=== PATIENT | female | born 1985 | race African-American/Black ===

== ENCOUNTER 2020-01-25 04:40 | Inpatient (IN) | payer OTHER ==
[2020-01-25] MEDS ORDERED: PHENAZOPYRIDINE HCL 100 MG TABLET (FP) ONE (06:49)
[2020-01-25] MEDS ORDERED: ceFAZolin SODIUM 1 GM VIAL ONE ×2 (06:50→15:45)
[2020-01-25] MEDS ORDERED: VASOPRESSIN 20 UNITS/ML VIAL IV ONE ×2 (07:24→17:52)
[2020-01-25] MEDS ORDERED: MIDAZOLAM HCL 2 MG/2 ML SINGLE DOSE VIAL ONE ×4 (07:28→17:06)
[2020-01-25] MEDS ORDERED: PROMETHAZINE HCL 25 MG/1 ML VIAL IVPB PRN ×2 (07:30)
[2020-01-25] MEDS ORDERED: ONDANSETRON 4 MG/2 ML VIAL IVPUSH PRN ×4 (07:30→17:38)
[2020-01-25] MEDS ORDERED: DEXAMETHASONE SOD PHOSPHATE 4 MG/1 ML VIAL IVPUSH PRN (07:30)
[2020-01-25] MEDS ORDERED: HYDROmorphone *PCA* 10MG/50ML DISP.SYRIN PCA SCH (07:30)
[2020-01-25] MEDS ORDERED: LACTATED RINGERS SOLUTION 1,000 ML IV SCH (07:30)
[2020-01-25] MEDS ORDERED: PHENAZOPYRIDINE HCL 100 MG TABLET (FP) PO ONE (07:30)
[2020-01-25] MEDS ORDERED: CEFAZOLIN 2 GM in DEXTROSE 5%-WATER - 50 ML IVPB ONE (07:30)
[2020-01-25] MEDS ORDERED: ROPIVACAINE HCL 0.5% 30ML VIAL ONE (07:32)
--- NOTE | 2020-01-25 07:39 | HP ---
History & Physical Update - History History: No Change - Physical Physical: No Change - Assessment Assessment: No Change - Plan Plan: No Change (Ni change in HP)
[2020-01-25] MEDS ORDERED: ROCURONIUM BROMIDE 50 MG/5 ML SYRINGE ONE ×2 (07:57→14:57)
[2020-01-25] MEDS ORDERED: LIDOCAINE HCL/PF 2% SDV 5ML VIAL ONE ×2 (07:58→18:27)
[2020-01-25] MEDS ORDERED: PROPOFOL 20 ML ONE ×2 (07:58)
[2020-01-25] MEDS ORDERED: ceFAZolin SODIUM 1 GM VIAL IVPB ONE (08:05)
[2020-01-25] MEDS ORDERED: fentaNYL CITRATE 250 MCG/5 ML VIAL ONE (08:17)
[2020-01-25] MEDS ORDERED: NEOSTIGMINE METHYLSULFATE 0.5 MG/ML - 10 ML MDV ONE (09:32)
[2020-01-25] MEDS ORDERED: GLYCOPYRROLATE 0.2 MG/1 ML VIAL ONE (09:32)
[2020-01-25] MEDS ORDERED: ACETAMINOPHEN 325 MG TABLET (FP) PO PRN (10:03)
[2020-01-25] MEDS ORDERED: SIMETHICONE 80 MG TAB.CHEW (FP) PO PRN (10:03)
[2020-01-25] MEDS ORDERED: DOCUSATE SODIUM 100 MG CAPSULE (FP) PO PRN (10:03)
[2020-01-25] MEDS ORDERED: BISACODYL 5 MG TABLET.DR (FP) PO PRN (10:03)
[2020-01-25] MEDS ORDERED: IBUPROFEN 800 MG/8 ML IJ IVPB PRN (10:03)
[2020-01-25] MEDS ORDERED: FAMOTIDINE 20 MG TABLET PO PRN (10:08)
[2020-01-25] MEDS ORDERED: BENZOCAINE/MENTH/CETYLPYRD CL 1 EACH LOZENGE MM PRN (10:09)
--- NOTE | 2020-01-25 10:11 | OP ---
Operative Note - Note: Operative Date: 01/25/20 Pre-Operative Diagnosis: Leiomyomas, menorrhagia Operation: open abdominal myomectomy Findings: as dictated Post-Operative Diagnosis: Same as Pre-op Surgeon: Amanda Dominguez Narrow Gauge Brakeman: Margot Beltran Anesthesiologist/NEONATOLOGIST: Kodak Stoll Anesthesia: General, Regional Specimens Removed: 13 fibroids in total Estimated Blood Loss (mls): 700 (ml) Operative Report Dictated: Yes
--- NOTE | 2020-01-25 10:12 | SURG ---
Surgery Ticket Machine Operator Note Ticket Machine Operator: Margot Beltran PA-C (Suzy) Date of Service: 01/25/20 Diagnosis: Leiomyomas, menorrhagia Procedure: Operation: open abdominal myomectomy I was present for the entirety of the operative procedure. For further detail, please refer to operative report. Visit type - Case Type Case Type: Scheduled - Emergency Emergency Visit: No - New patient This patient is new to me today: Yes Date on this admission: 01/25/20 - Critical Care Critical Care patient: No
--- NOTE | 2020-01-25 10:35 | OP ---
DATE OF OPERATION: 01/25/2020 PREOPERATIVE DIAGNOSIS: Leiomyomatous uterus and menorrhagia, submucosal myoma, intramural myoma, subserosal myoma, pelvic pain. OPERATION: Abdominal Myomectomy very extensive, around 13 myomas removed including 3 from endometrial cavity and sent for findings. Tubes and ovaries noted to be normal. POSTOPERATIVE DIAGNOSIS: Leiomyomatous uterus and menorrhagia, submucosal myoma, intramural myoma, subserosal myoma, pelvic pain. SURGEON: Saturnino Dominguez MD GYROSCOPE TECHNICIAN: ANGELO Peres ANESTHESIA: General. ESTIMATED BLOOD LOSS: 700 mL PROCEDURE: Patient was taken to the operating room, placed in dorsal supine position, prepped and draped in the usual sterile fashion. Timeout was performed in accordance with hospital regulation. Pfannenstiel skin incision was made with a scalpel. Cautery was then used to go through the layers of the abdominal wall to the level of the fascia. Fascia was cut in the midline and cautery was then used to open the fascia in smiling fashion. Topher was then used to bluntly and sharply dissect the rectus muscle to fascia. Muscle was split in the midline. Peritoneal cavity was then entered and carried up and downward. A leiomyomatous uterus approximately 24 cm in size was palpated. The rectus muscle was then transversely cut. Uterus was then exteriorized and a multiple myomatous about 24 cm was exteriorized. Tourniquet was placed in the clear space of the broad. The tubes and ovaries were noted to be normal. Myomas were noted in the submucosal area, large about 8 cm submucosal myoma and 4 cm myomas as well as subserosal myomas also large about 9 to 10 cm in size. The tourniquet was placed. Pitressin was infiltrated and a large vertical incision was made anteriorly to remove most of the fibroids. Exteriorized and the muscle with approximately about 6 myomas were removed. Three of the myomas were located submucosally. Endometrial cavity was then entered and myomas were removed and enucleated out, multiple of them in the fundus. Subserosal was located on the right side. A circumferential incision was made and that myoma was removed and that was approximately 7 cm, and some posterior myoma was also removed approximately 4 to 5 cm and also another 3 cm. Incisions were made posteriorly, a large vertical incision anteriorly on the right, another 4 to 5 cm incision was made and also posteriorly another 5 cm incision and 3 cm incision. All incisions were repaired in layers. The endometrial cavity was repaired using 2-0 Vicryl suture without entry into the cavity. The muscle was then approximated using 1 Vicryl suture in a continuous and locking fashion in multiple layers, and serosa was then closed using 2-0 V-Loc suture for the serosa. All incisions were closed. Hemostasis was achieved. INTERCEED was placed and sewn on and the uterus was then interiorized. EBL was approximately 700 mL. Peritoneal cavity was then closed using 0 Vicryl suture. Muscle was approximated in midline using 1 Vicryl suture in a continuous pursestring suture and then approximated using interrupted. That was the rectus muscle, and the fascia then closed using 0 Vicryl suture in 2 parts. Subcutaneous was then closed using 2-0 Vicryl suture in interrupted sutures and skin was then closed using 3-0 Vicryl in subcuticular fashion. The wound was washed and dressed. Patient tolerated the procedure well. Again, the estimated blood loss was 700 mL. SATURNINO DOMINGUEZ M.D. [id number] MTDD
[2020-01-25] MEDS ORDERED: HYDROmorphone *PCA* 10MG/50ML DISP.SYRIN PCA ONE (10:40)
[2020-01-25] MEDS ORDERED: IBUPROFEN 800 MG/8 ML IJ IVPB ONE (11:49)
[2020-01-25 12:13] LABS: BLOOD UREA NITROGEN 11.4 mg/dL (7-18); CALCIUM 8.7 mg/dL (8.5-10.1); CREATININE 0.8 mg/dL (0.55-1.3); POTASSIUM 3.8 mmol/L (3.5-5.1)
--- NOTE | 2020-01-25 13:30 | PN ---
HC Provider Note (SOAP) Subjective: Tachycardia Objective: vaginal bleeding and abdominal wound saturation Assesment: post surgical hemorrhage Plan: transfuse 3 units stat cbc
[2020-01-25 13:43] LABS: HEMATOCRIT 20.4 % (32.4-45.2); MCH 25.8 pg (25.7-33.7); MEAN CELL VOLUME 80.5 fl (80-96); MEAN PLT VOLUME 7.3 fl (7.5-11.1); PLATELET COUNT 127 K/MM3 (134-434); RBC 2.53 M/mm3 (3.60-5.2); RDW 20.8 % (11.6-15.6); WHITE BLOOD COUNT 13.4 K/mm3 (4.0-10.0)
[2020-01-25 14:28] LABS: HEMOGLOBIN 6.5 GM/dL (10.7-15.3)
[2020-01-25] MEDS ORDERED: ETOMIDATE 20 MG/10 ML AMPUL IVPUSH ONE (14:55)
[2020-01-25] MEDS ORDERED: SUCCINYLCHOLINE CHLORIDE 200 MG/10 ML SYRINGE ONE (14:55)
--- NOTE | 2020-01-25 15:01 | PN ---
Progress Note (short form) - Note Progress Note: Pt seen in PACU at 1330 Hypotensive to systolic 100, tachy to 105 Pt with vaginal bleeding, s/p 3 saturated pads, abdominal dressing saturated Dressing removed with oozing noted R lateral portion of incision, pressure held x 5 mins with cessation of oozing New pressure dressing applied, binder placed Stat cbc sent Pt awaiting transfusion, 3 units pRBCs ordered Will follow closely d/w attending Dr Dominguez
[2020-01-25] MEDS ORDERED: PHENYLEPHRINE HCL 10 MG/1 ML SINGLE DOSE VIAL ONE (15:45)
[2020-01-25] MEDS ORDERED: OXYTOCIN 10 UNITS/ML VIAL ONE ×2 (15:45→17:05)
[2020-01-25] MEDS ORDERED: CALCIUM GLUCONATE 10% - 1,000 MG/10 ML VIAL IVPUSH ONE (17:29)
--- NOTE | 2020-01-25 17:33 | OP ---
DATE OF OPERATION: 01/25/2020 PREOPERATIVE DIAGNOSIS: Disseminated intravascular coagulation, vaginal bleeding, abdominal bleeding. OPERATION: Exploration of the abdomen. Oversewing of uterus done with interseed in place No active bleeding seen from uterus with bleeding noted everywhere. Dx of DIC incision. Also noted was serosa injury of bowel. Consult called and also repair of oversewing of serosa bowel was done by Dr. Medina. Bakri balloon placed, and a GUCCI drain placed. POSTOPERATIVE DIAGNOSIS: Disseminated intravascular coagulation. PROCEDURE: Patient was taken to the operating room, placed in supine position. Prepped and draped in usual sterile fashion. Bleeding was noted from through the incision in the abdomen. The incision was reopened. Peritoneum, muscle were reopened, after using scissors to cut sutures. Subsequently, 800 mL of blood was found in the body. Uterus was exteriorized, and no active bleeding was seen. Oozing noted everywhere. Diagnosis of DIC made due to condition of blood in the abdominal cavity Uterine incisions were then oversewn as a precaution. All incisions were identified as well approximated and not actively bleeding. pt desires to keep uterus for fertility. Uterus was interiorized. Attention was then drawn to the vagina, where the cervix was then dilated, and a Bakri balloon was placed into the endometrial cavity. Then GUCCI drain was then placed in the abdomen, and peritoneum was then closed, muscle approximated using 0 Vicryl suture, fascia then closed using 0 Vicryl suture in 2 parts, skin was then closed using 3 Vicryl subcuticular fashion. Wound was washed and dressed. Patient tolerated procedure well. Estimated blood loss was about 2000 mL. Massive transfusion protocol was started. Patient was given intraoperatively 5 units of blood, FFP, and cryo. Patient tolerated procedure well and was taken to recovery room in stable condition. This was the 2nd surgery patient received today. SATURNINO MUÑIZ M.D. [id number] MTDD
--- NOTE | 2020-01-25 17:36 | CONSULT ---
Consultation: REQUESTING PROVIDER: Dr. Dominguez CONSULT REQUEST: We have been asked to medically evaluate this patient for disseminated intravascular coagulation. HISTORY OF PRESENT ILLNESS: This is a 34 y/o F with no significant PMHx who presented to the hospital for myomectomy due to menorrhagia. The surgery was performed without any complications until patient was found to be hypotensive and anuric while in the PACU and had vaginal bleeding/oozing of blood from her vagina. Pt was subsequently brought back to the OR for ex lap to assess if it had been related to the surgery and they did not find any surgical cause. They placed a balloon in the uterus to allow for tamponade and a vaginal pad which has controlled the vaginal bleeding. Pt is s/p 3 saturated vaginal pads, and an abdominal dressing that was saturated. GUCCI tube placed draining sanguinous fluid. Dressing removed with oozing noted R lateral portion of incision, pressure held x 5 mins with cessation of oozing. Pt intubated with TV-400, rate 10, PEEP 5, 100%FiO2. Consent for possible central line vs A line was signed by patients mother in waiting room. Estimated Blood Loss (mls): 2,000 Drains, Volume Out (mls): 300 (arteaga) Blood Volume Replaced (mls): 1,755 (5 prbc, 1 cyro, 2 ffp, 1 plt) Fluid Volume Replaced (mls): 2,000 Operative Report Dictated: Yes REVIEW OF SYSTEMS: PHYSICAL EXAMINATION Vital Signs - 24 hr 01/25/20 01/25/20 01/25/20 06:41 10:05 10:15 Temperature 97.8 F 98.7 F Pulse Rate 70 73 71 Respiratory 16 12 12 Rate Blood Pressure 128/86 134/74 126/71 O2 Sat by Pulse 100 100 99 Oximetry (%) 01/25/20 01/25/20 01/25/20 10:30 10:40 10:45 Temperature Pulse Rate 61 64 63 Respiratory 12 16 14 Rate Blood Pressure 125/70 128/66 111/64 O2 Sat by Pulse 99 100 100 Oximetry (%) 01/25/20 01/25/20 01/25/20 11:00 11:10 11:15 Temperature Pulse Rate 61 63 64 Respiratory 14 12 13 Rate Blood Pressure 109/82 120/71 116/74 O2 Sat by Pulse 100 100 100 Oximetry (%) 01/25/20 01/25/20 01/25/20 11:30 11:40 11:45 Temperature Pulse Rate 72 60 60 Respiratory 15 14 15 Rate Blood Pressure 119/75 110/80 112/81 O2 Sat by Pulse 100 100 100 Oximetry (%) 01/25/20 01/25/20 01/25/20 12:00 12:10 12:15 Temperature Pulse Rate 61 73 67 Respiratory 16 15 16 Rate Blood Pressure 114/77 111/57 L 98/78 O2 Sat by Pulse 100 100 100 Oximetry (%) 01/25/20 01/25/20 01/25/20 12:30 12:45 13:00 Temperature Pulse Rate 74 76 93 H Respiratory 16 17 15 Rate Blood Pressure 115/74 117/75 111/69 O2 Sat by Pulse 100 100 100 Oximetry (%) 01/25/20 01/25/20 01/25/20 13:15 13:30 13:45 Temperature Pulse Rate 112 H 111 H 115 H Respiratory 18 14 17 Rate Blood Pressure 100/58 L 94/53 L 93/50 L O2 Sat by Pulse 99 100 100 Oximetry (%) 01/25/20 01/25/20 01/25/20 14:00 14:15 14:25 Temperature Pulse Rate 123 H 128 H 145 H Respiratory 18 15 20 Rate Blood Pressure 92/54 L 82/49 L 108/73 O2 Sat by Pulse 100 100 100 Oximetry (%) 01/25/20 01/25/20 14:40 14:55 Temperature 97.7 F 97.7 F Pulse Rate 128 H 131 H Respiratory 18 18 Rate Blood Pressure 115/65 119/69 O2 Sat by Pulse 100 100 Oximetry (%) GENERAL: Intubated and sedated on fentanyl LUNGS: Breath sounds equal, clear to auscultation bilaterally. No wheezes, and no crackles. HEART: Tachy in regular rhythm, normal S1 and S2 without murmur, rub or gallop. ABDOMEN: Soft, not distended, no guarding, no rebound, no masses. LOWER EXTREMITIES: 2+ pulses, warm, well-perfused. No calf tenderness. No peripheral edema. PSYCHIATRIC: Sedated SKIN: cool to touch on extremities, dry, no rashes or lesions noted. Laboratory Results - last 24 hr 01/25/20 01/25/20 01/25/20 06:15 06:15 10:18 WBC RBC Hgb Hct MCV MCH MCHC RDW Plt Count MPV Sodium 138 Potassium 3.8 Chloride 106 Carbon Dioxide 25 Anion Gap 7 L BUN 11.4 Creatinine 0.8 Est GFR (CKD-EPI)AfAm 109.93 Est GFR (CKD-EPI)NonAf 94.85 Random Glucose 97 Calcium 8.7 Serum , Qual Negative Blood Type O POSITIVE Antibody Screen Negative Crossmatch See Detail Crossmatch IS Only See Detail 01/25/20 13:20 WBC 13.4 H RBC 2.53 L Hgb 6.5 L* Hct 20.4 L D MCV 80.5 MCH 25.8 MCHC 32.0 RDW 20.8 H Plt Count 127 L D MPV 7.3 L D Sodium Potassium Chloride Carbon Dioxide Anion Gap BUN Creatinine Est GFR (CKD-EPI)AfAm Est GFR (CKD-EPI)NonAf Random Glucose Calcium Serum , Qual Blood Type Antibody Screen Crossmatch Crossmatch IS Only Active Medications Generic Name Dose Route Start Last Admin Trade Name Freq PRN Reason Stop Dose Admin Acetaminophen 650 mg 01/25/20 10:03 Tylenol - PO Q4H PRN FEVER Benzocaine/Menthol 1 each 01/25/20 10:09 Cepacol Lozenge - MM PRN PRN SORE THROAT Bisacodyl 10 mg 01/25/20 10:03 Dulcolax - PO ONCE PRN CONSTIPATION Calcium Gluconate 1,000 mg 01/25/20 17:29 Calcium Gluconate 10% - IVPUSH 01/25/20 17:30 ONCE ONE Chlorhexidine Gluconate 1 applic 01/25/20 22:00 Hibiclens For Decolonization - TP HS CHUCK Chlorhexidine Gluconate 1 applic 01/25/20 22:00 Hibiclens For Decolonization - TP HS CHUCK Dexamethasone Sodium Phosphate 4 mg 01/25/20 07:30 Decadron Injection - IVPUSH ONCE PRN NAUSEA AND/OR VOMITING Diphenhydramine HCl 12.5 mg 01/25/20 07:30 Benadryl Injection - IVPUSH ONCE PRN FOR ITCHING Docusate Sodium 100 mg 01/25/20 10:03 Colace - PO TID PRN CONSTIPATION Enoxaparin Sodium 40 mg 01/26/20 10:00 Lovenox - SQ DAILY CHUCK Famotidine 20 mg 01/25/20 10:08 Pepcid - PO BID PRN INDIGESTION Fentanyl 50 mcg 01/25/20 07:30 Sublimaze Injection - IVPUSH [id number] PRN PAIN-PACU ORDER X 4 DOSES ONLY Hydromorphone HCl 10 mg 01/25/20 07:30 Hydromorphone 10 Mg/50 Ml-Ns GENERATOR SWITCHBOARD OPERATOR 02/01/20 07:31 GENERATOR SWITCHBOARD OPERATOR CHUCK Protocol Lactated Ringer's 1,000 mls @ 125 mls/hr 01/25/20 07:30 Lactated Ringers Solution IV ASDIR CHUCK Cefazolin Sodium 1 gm/ 50 mls @ 100 mls/hr 01/25/20 16:00 Dextrose IVPB 01/27/20 15:59 Q8H-IV CHUCK Metronidazole 250 mg in 50 mls @ 50 mls/hr 01/25/20 23:00 Flagyl 250mg Premixed Ivpb - IVPB Q8H-IV CHUCK Ibuprofen 800 mg 01/25/20 10:03 01/25/20 11:50 Caldolor Injection - IVPB 800 mg Q8H PRN Administration PAIN LEVEL 1-5 Mupirocin 1 applic 01/25/20 22:00 Bactroban Ointment (For Decolonization) - NS 01/30/20 21:59 BID CHUCK Mupirocin 1 applic 01/25/20 22:00 Bactroban Ointment (For Decolonization) - NS 01/30/20 21:59 BID [facility] Non-Formulary Medication 1 tab 01/26/20 10:00 Oral Control PO DAILY [facility] Ondansetron HCl 4 mg 01/25/20 10:03 Zofran Injection IVPUSH Q4H PRN NAUSEA AND/OR VOMITING Promethazine HCl 12.5 mg 01/25/20 07:30 Phenergan Injection - IVPB Q6H PRN NAUSEA AND/OR VOMITING Simethicone 80 mg 01/25/20 10:03 Mylicon - PO Q4H PRN GAS ASSESSMENT/PLAN: This is a 34 y/o F with no significant PMHx who presented to the hospital for myomectomy due to menorrhagia. The surgery was performed without any complications until patient was found to be hypotensive and anuric while in the PACU and had vaginal bleeding/oozing of blood from her vagina. #Neuro - AOX 3 prior to intubation - no neurologic issues at this time - on fentanyl drip as pt is hypotensive #Pulm - pt is intubated and sedated with fentanyl from the time of surgery - no acute pulm pathology at this time #Cardio - sinus tachy due to severe hypovolemia from the massive Hemorrhage - will continue to hydrate with NS wide open - maintaining MAP >65, A line in place and on levo 12, 5 vaso with MAP >100 at this time will keep MAP elevated in event pt needs hysterectomy #Heme - pt in DIC - post op cbc, coags, d-dimer, fibrinogen all pending - pt is s/p 6 prbc's, 2 ffp, 1 cryo, and 1 platelets - pt was given calcium gluconate to counter act the citrate in the blood products. - pt has a balloon vac in the uterus to act as a tamponade and GUCCI drain in place which we will monitor overnight to ensure the bleeding is controlled. - cbc q4h's, coags, fibrinogen, and d-dimer monitoring q4 - transfuse plt's <50K low threshold, fibrinogen 100-150 give ffp, <100 give cryo - total 12 prbcs given, 3 plt's, 4 ffp (3 more ordered), 10 units cryo given (10 more units ordered) for continuing bleeding - heme onc consulted with recommendations provided - IV LR wide open boluses prn to maintain MAP >65 - IR consulted for uterine embolization with failure to cessate bleed as pt still draining from GUCCI with what looks to be fresh blood. Will assess need for hysterectomy as per OBGYN's discretion. - if pt continues to bleed after FFP and cryo additional units provided, will given 1g tranexamic acid (pharmacy is aware and bag is ready if needed). - coags and platelets vastly improving in AM labs DVT ppx: holding chemical ppx, SCD's for now Dispo: We will continue to follow the patient. Thank you for this consultative opportunity. Visit type - Emergency Visit Emergency Visit: No - New Patient This patient is new to me today: Yes Date on this admission: 01/26/20 - Critical Care Critical Care patient: Yes Total Critical Care Time (in minutes): 40 Critical Care Statement: The care of this patient involved high complexity decision making to prevent further life threatening deterioration of the patient's condition and/or to evaluate & treat vital organ system(s) failure or risk of failure. ATTENDING PHYSICIAN STATEMENT I saw and evaluated the patient. I reviewed the resident's note and discussed the case with the resident. I agree with the resident's findings and plan as documented. SUBJECTIVE: OBJECTIVE: ASSESSMENT AND PLAN:
--- NOTE | 2020-01-25 17:36 | OP ---
Operative Note - Note: Operative Date: 01/25/20 Pre-Operative Diagnosis: hemorrhage Operation: exploratory laparotomy Surgeon: Amanda Dominguez Ecology Teacher: Penelope Luna Anesthesiologist/STATIONARY ENGINEER: Dieudonne Medina Anesthesia: General Estimated Blood Loss (mls): 2,000 Drains, Volume Out (mls): 300 (arteaga) Blood Volume Replaced (mls): 1,755 (5 prbc, 1 cyro, 2 ffp, 1 plt) Fluid Volume Replaced (mls): 2,000 Operative Report Dictated: Yes
[2020-01-25] MEDS ORDERED: PROMETHAZINE HCL 25 MG/1 ML VIAL IVPUSH PRN (17:38)
[2020-01-25] MEDS ORDERED: CALCIUM GLUCONATE 10% - 1,000 MG/10 ML VIAL IVPB ONE (17:40)
[2020-01-25] MEDS ORDERED: CALCIUM GLUCONATE 10% - 1,000 MG/10 ML VIAL ONE (18:02)
[2020-01-25 18:49] LABS: HEMATOCRIT 20.3 % (32.4-45.2); MCH 30.1 pg (25.7-33.7); MCHC 33.8 g/dl (32.0-36.0); MEAN CELL VOLUME 89.1 fl (80-96); MEAN PLT VOLUME 8.3 fl (7.5-11.1); RBC 2.28 M/mm3 (3.60-5.2); RDW 15.8 % (11.6-15.6); WHITE BLOOD COUNT 7.2 K/mm3 (4.0-10.0)
[2020-01-25 18:54] LABS: ALBUMIN 1.5 g/dl (3.4-5.0); BILIRUBIN,TOTAL 0.6 mg/dL (0.2-1); BLOOD UREA NITROGEN 13.3 mg/dL (7-18); CREATININE 1.1 mg/dL (0.55-1.3); POTASSIUM 5.3 mmol/L (3.5-5.1); TOT PROT 2.9 g/dl (6.4-8.2)
[2020-01-25 18:56] LABS: HEMOGLOBIN 6.9 GM/dL (10.7-15.3)
[2020-01-25 18:57] LABS: CALCIUM 6.4 mg/dL (8.5-10.1)
[2020-01-25 18:57] LABS: PLATELET COUNT 101 K/MM3 (134-434)
[2020-01-25 19:01] LABS: INR 1.39 (0.83-1.09); PROTHROMBIN TIME (PATIENT) 16.4 SEC (9.7-13.0)
[2020-01-25 19:04] LABS: ACTIVATED PTT 38.4 SECONDS (25.2-36.5)
[2020-01-25 19:11] LABS: BASO % 0.2 % (0-2.0); HEMOGLOBIN 9.7 GM/dL (10.7-15.3); LYMPH % 16.5 % (8-40); MCHC 33.4 g/dl (32.0-36.0); MEAN PLT VOLUME 7.6 fl (7.5-11.1); MONO % 7.8 % (3.8-10.2); NEUT % 75.5 % (42.8-82.8); PLATELET COUNT 62 K/MM3 (134-434); RBC 3.22 M/mm3 (3.60-5.2); RDW 15.2 % (11.6-15.6); WHITE BLOOD COUNT 6.5 K/mm3 (4.0-10.0)
--- NOTE | 2020-01-25 20:24 | PROC ---
Central Line Insertion - Procedure Note TIME OUT performed prior to this procedure with verbal confirmation of correct patient identity, correct side, agreement of the procedure, correct patient position, availability of necessary equipment. The consent form is complete and accurate. Risk of possible infection, bleeding and pneumothorax have been discussed with the patient. Safety precautions based on patient history or medication use has been addressed. Indication: CVP Monitoring Consent on Chart: Yes Central Line: Triple Lumen Catheter Position: Supine Area prepped with Chlorhexidine solution then draped using sterile barrier protection. Anesthesia: Lidocaine 1% Technique used: Seldinger Ultrasound Guided Assistance: Yes Site: Right Internal Jugular Dark venous non-pulsatile flow noted from hub of needle. The catheter was introduced. Guide wire removed intact. Each port aspirated then flushed with sterile normal saline and capped. Line secured to skin with silk suture. Biopatch placed around base of line. Sterile occlusive dressing applied. No complications. Patient tolerated the procedure well. STAT chest xray ordered to confirm position and rule out pneumothorax.
[2020-01-25 20:38] LABS: BASO % 0.2 % (0-2.0); HEMATOCRIT 26.8 % (32.4-45.2); HEMOGLOBIN 9.1 GM/dL (10.7-15.3); LYMPH % 20.3 % (8-40); MCH 30.1 pg (25.7-33.7); MEAN CELL VOLUME 88.7 fl (80-96); MEAN PLT VOLUME 8.1 fl (7.5-11.1); MONO % 6.7 % (3.8-10.2); NEUT % 72.8 % (42.8-82.8); PLATELET COUNT 60 K/MM3 (134-434); RBC 3.02 M/mm3 (3.60-5.2); RDW 15.2 % (11.6-15.6); WHITE BLOOD COUNT 6.9 K/mm3 (4.0-10.0)
--- NOTE | 2020-01-25 20:41 | SURG ---
Surgery Investment Advisor Note Investment Advisor: Penelope Luna PA-C Date of Service: 01/25/20 Diagnosis: exploratory laparotomy I was present for the entirety of the operative procedure. For further detail, please refer to operative report. Visit type - Case Type Case Type: Scheduled - Emergency Emergency Visit: No - New patient This patient is new to me today: Yes Date on this admission: 01/25/20 - Critical Care Critical Care patient: Yes Total Critical Care Time: 3 (intra op and post op)
[2020-01-25 20:47] LABS: ANISOCYTOSIS 0; MACROCYTOSIS 0; PLATELET ESTIMATE DECREASED
[2020-01-25 20:51] LABS: BLOOD UREA NITROGEN 13.4 mg/dL (7-18); CREATININE 0.9 mg/dL (0.55-1.3); POTASSIUM 5.5 mmol/L (3.5-5.1)
[2020-01-25] MEDS ORDERED: PROPOFOL 1,000,000 MCG/100 ML VIAL ONE (20:52)
[2020-01-25 20:55] LABS: CALCIUM 6.3 mg/dL (8.5-10.1)
[2020-01-25] MEDS ORDERED: VANCOMYCIN 1 GRAM (PRE-DOCKED) 1,000 MG/250 ML BAG IVPB ONE (21:01)
[2020-01-25 21:07] LABS: PROTHROMBIN TIME (PATIENT) 16.3 SEC (9.7-13.0)
[2020-01-25 21:08] LABS: ACTIVATED PTT 34.5 SECONDS (25.2-36.5); INR 1.38 (0.83-1.09)
[2020-01-25] MEDS: MIDAZOLAM IN 0.9 % SOD.CHLORID 100 MG/100 ML PLAST..BAG IVPB SCH (21:32)
--- NOTE | 2020-01-25 21:50 | PN ---
Progress Note (short form) - Note Progress Note: Pt in ICU and received 9 units prbc 2 cryo( 10 units) and 4 ffp massive transfusion protocol activated hematology consult called and blood products given as above IR consult called due to continuous peritoneal bleeding form GUCCI drain > 300 cc Laboratory Last Values WBC 6.9 K/mm3 (4.0-10.0) 01/25/20 19:45 RBC 3.02 M/mm3 (3.60-5.2) L 01/25/20 19:45 Hgb 9.1 GM/dL (10.7-15.3) L 01/25/20 19:45 Hct 26.8 % (32.4-45.2) L 01/25/20 19:45 MCV 88.7 fl (80-96) 01/25/20 19:45 MCH 30.1 pg (25.7-33.7) 01/25/20 19:45 MCHC 34.0 g/dl (32.0-36.0) 01/25/20 19:45 RDW 15.2 % (11.6-15.6) 01/25/20 19:45 Plt Count 60 K/MM3 (134-434) L 01/25/20 19:45 MPV 8.1 fl (7.5-11.1) 01/25/20 19:45 Absolute Neuts (auto) 5.0 K/mm3 (1.5-8.0) 01/25/20 19:45 Neutrophils % 72.8 % (42.8-82.8) 01/25/20 19:45 Neutrophils % (Manual) 65.4 % (42.8-82.8) 01/25/20 19:00 Band Neutrophils % 13.1 % 01/25/20 19:00 Lymphocytes % 20.3 % (8-40) D 01/25/20 19:45 Lymphocytes % (Manual) 12.1 % (8-40) 01/25/20 19:00 Monocytes % 6.7 % (3.8-10.2) 01/25/20 19:45 Monocytes % (Manual) 0 % (3.8-10.2) L 01/25/20 19:00 Eosinophils % 0.0 % (0-4.5) 01/25/20 19:45 Eosinophils % (Manual) 0.0 % (0-4.5) 01/25/20 19:00 Basophils % 0.2 % (0-2.0) 01/25/20 19:45 Basophils % (Manual) 0.0 % (0-2.0) 01/25/20 19:00 Myelocytes % (Man) 2 % (0-2) 01/25/20 19:00 Promyelocytes % (Man) 0 % (0-2) 01/25/20 19:00 Blast Cells % (Manual) 0 % (0-0) 01/25/20 19:00 Nucleated RBC % 0 % (0-0) 01/25/20 19:45 Metamyelocytes 6 % (0-2) H 01/25/20 19:00 Hypochromia 0 01/25/20 19:00 Platelet Estimate Decreased 01/25/20 19:00 Polychromasia 0 01/25/20 19:00 Poikilocytosis 0 01/25/20 19:00 Anisocytosis 0 01/25/20 19:00 Microcytosis 0 01/25/20 19:00 Macrocytosis 0 01/25/20 19:00 PT with INR 16.30 SEC (9.7-13.0) H 01/25/20 20:21 INR 1.38 (0.83-1.09) H 01/25/20 20:21 PTT (Actin FS) 34.5 SECONDS (25.2-36.5) 01/25/20 20:21 Fibrinogen 130.0 mg/dL (238-498) L 01/25/20 20:21 D-Dimer 82348 ng/ml (0-500) H 01/25/20 18:15 Sodium 140 mmol/L (136-145) 01/25/20 19:45 Potassium 5.5 mmol/L (3.5-5.1) H 01/25/20 19:45 Chloride 112 mmol/L (98-107) H 01/25/20 19:45 Carbon Dioxide 16 mmol/L (21-32) L 01/25/20 19:45 Anion Gap 12 MMOL/L (8-16) 01/25/20 19:45 BUN 13.4 mg/dL (7-18) 01/25/20 19:45 Creatinine 0.9 mg/dL (0.55-1.3) 01/25/20 19:45 Est GFR (CKD-EPI)AfAm 95.34 01/25/20 19:45 Est GFR (CKD-EPI)NonAf 82.26 01/25/20 19:45 Random Glucose 241 mg/dL (74-106) H 01/25/20 19:45 Calcium 6.3 mg/dL (8.5-10.1) L* 01/25/20 19:45 Total Bilirubin 0.6 mg/dL (0.2-1) 01/25/20 18:15 AST 20 U/L (15-37) 01/25/20 18:15 ALT 11 U/L (13-61) L 01/25/20 18:15 Alkaline Phosphatase 22 U/L (45-117) L 01/25/20 18:15 Total Protein 2.9 g/dl (6.4-8.2) L 01/25/20 18:15 Albumin 1.5 g/dl (3.4-5.0) L 01/25/20 18:15 Serum , Qual Negative 01/25/20 06:15 Blood Type O POSITIVE 01/25/20 06:15 Antibody Screen Negative 01/25/20 06:15 Crossmatch See Detail 01/25/20 06:15 Crossmatch IS Only See Detail 01/25/20 06:15 Vital Signs Period Temp Pulse Resp BP Sys/Conrad Pulse Ox Last 24 Hr 97.7 F-98.7 F 60-159 12-24 81-134/49-101 99-100 will repeat blood work after 10 units of blood at 11 pm Ass DIC post myomectomy Plan IR embolization
[2020-01-25] MEDS: PROPOFOL 1,000,000 MCG/100 ML VIAL IVPB SCH (22:00)
[2020-01-25] MEDS: CHLORHEXIDINE GLUCONATE 4% CLEANSER FOR DECOLONIZATION TP SCH (22:00)
[2020-01-25] MEDS: CEFEPIME 2 GM in DEXTROSE 5%-WATER 100 ML IVPB SCH (22:00)
[2020-01-25] MEDS ORDERED: CHLORHEXIDINE GLUCONATE 4% CLEANSER FOR DECOLONIZATION TP SCH (22:00)
[2020-01-25] MEDS: MUPIROCIN 2% TOPICAL OINTMENT FOR DECOLONIZATION NS SCH (22:00)
[2020-01-25] MEDS ORDERED: MUPIROCIN 2% TOPICAL OINTMENT FOR DECOLONIZATION NS SCH (22:00)
[2020-01-25 22:43] LABS: BASO % 0.2 % (0-2.0); HEMATOCRIT 31.1 % (32.4-45.2); HEMOGLOBIN 10.8 GM/dL (10.7-15.3); LYMPH % 22.9 % (8-40); MCH 30.8 pg (25.7-33.7); MCHC 34.7 g/dl (32.0-36.0); MEAN CELL VOLUME 88.9 fl (80-96); MEAN PLT VOLUME 7.6 fl (7.5-11.1); MONO % 8.3 % (3.8-10.2); NEUT % 68.6 % (42.8-82.8); RDW 14.5 % (11.6-15.6); WHITE BLOOD COUNT 5.1 K/mm3 (4.0-10.0)
[2020-01-25 22:46] LABS: PLATELET COUNT 27 K/MM3 (134-434)
[2020-01-25 22:48] LABS: INR 1.26 (0.83-1.09); PROTHROMBIN TIME (PATIENT) 14.9 SEC (9.7-13.0)
[2020-01-25 22:50] LABS: ACTIVATED PTT 31.3 SECONDS (25.2-36.5)
--- NOTE | 2020-01-25 23:28 | CON.HO ---
Consult - text type - Consultation Consultation Note: 34 y/o F with no significant PMHx who presented to the hospital for myomectomy due to menorrhagia. The surgery was performed without any complications until patient was found to be hypotensive and anuric while in the PACU and had vaginal bleeding/oozing of blood from her vagina. Pt was subsequently brought back to the OR for ex lap -- noted to have oozing Received PRBCs, FFP/ cryoprecipitate GUCCI tube placed draining sanguinous fluid. Team planning on uterine artery embolization CBC/PT/PTT/ fibrinogen pending PHYSICAL EXAMINATION Vital Signs - 24 hr 01/25/20 01/25/20 01/25/20 06:41 10:05 10:15 Temperature 97.8 F 98.7 F Pulse Rate 70 73 71 Respiratory 16 12 12 Rate Blood Pressure 128/86 134/74 126/71 O2 Sat by Pulse 100 100 99 Oximetry (%) 01/25/20 01/25/20 01/25/20 10:30 10:40 10:45 Temperature Pulse Rate 61 64 63 Respiratory 12 16 14 Rate Blood Pressure 125/70 128/66 111/64 O2 Sat by Pulse 99 100 100 Oximetry (%) 01/25/20 01/25/20 01/25/20 11:00 11:10 11:15 Temperature Pulse Rate 61 63 64 Respiratory 14 12 13 Rate Blood Pressure 109/82 120/71 116/74 O2 Sat by Pulse 100 100 100 Oximetry (%) 01/25/20 01/25/20 01/25/20 11:30 11:40 11:45 Temperature Pulse Rate 72 60 60 Respiratory 15 14 15 Rate Blood Pressure 119/75 110/80 112/81 O2 Sat by Pulse 100 100 100 Oximetry (%) 01/25/20 01/25/20 01/25/20 12:00 12:10 12:15 Temperature Pulse Rate 61 73 67 Respiratory 16 15 16 Rate Blood Pressure 114/77 111/57 L 98/78 O2 Sat by Pulse 100 100 100 Oximetry (%) 01/25/20 01/25/20 01/25/20 12:30 12:45 13:00 Temperature Pulse Rate 74 76 93 H Respiratory 16 17 15 Rate Blood Pressure 115/74 117/75 111/69 O2 Sat by Pulse 100 100 100 Oximetry (%) 01/25/20 01/25/20 01/25/20 13:15 13:30 13:45 Temperature Pulse Rate 112 H 111 H 115 H Respiratory 18 14 17 Rate Blood Pressure 100/58 L 94/53 L 93/50 L O2 Sat by Pulse 99 100 100 Oximetry (%) 01/25/20 01/25/20 01/25/20 14:00 14:15 14:25 Temperature Pulse Rate 123 H 128 H 145 H Respiratory 18 15 20 Rate Blood Pressure 92/54 L 82/49 L 108/73 O2 Sat by Pulse 100 100 100 Oximetry (%) 01/25/20 01/25/20 14:40 14:55 Temperature 97.7 F 97.7 F Pulse Rate 128 H 131 H Respiratory 18 18 Rate Blood Pressure 115/65 119/69 O2 Sat by Pulse 100 100 Oximetry (%) Cor: RSR, No murmurs, No gallops Lungs: Clear to P&A Abd: Soft, Normal bowel sounds, No organomegaly Ext:No significant edema Laboratory Results - last 24 hr 01/25/20 01/25/20 01/25/20 06:15 06:15 10:18 WBC RBC Hgb Hct MCV MCH MCHC RDW Plt Count MPV Sodium 138 Potassium 3.8 Chloride 106 Carbon Dioxide 25 Anion Gap 7 L BUN 11.4 Creatinine 0.8 Est GFR (CKD-EPI)AfAm 109.93 Est GFR (CKD-EPI)NonAf 94.85 Random Glucose 97 Calcium 8.7 Serum , Qual Negative Blood Type O POSITIVE Antibody Screen Negative Crossmatch See Detail Crossmatch IS Only See Detail 01/25/20 13:20 WBC 13.4 H RBC 2.53 L Hgb 6.5 L* Hct 20.4 L D MCV 80.5 MCH 25.8 MCHC 32.0 RDW 20.8 H Plt Count 127 L D MPV 7.3 L D Sodium Potassium Chloride Carbon Dioxide Anion Gap BUN Creatinine Est GFR (CKD-EPI)AfAm Est GFR (CKD-EPI)NonAf Random Glucose Calcium Serum , Qual Blood Type Antibody Screen Crossmatch Crossmatch IS Only Active Medications Generic Name Dose Route Start Last Admin Trade Name Freq PRN Reason Stop Dose Admin Acetaminophen 650 mg 01/25/20 10:03 Tylenol - PO Q4H PRN FEVER Benzocaine/Menthol 1 each 01/25/20 10:09 Cepacol Lozenge - MM PRN PRN SORE THROAT Bisacodyl 10 mg 01/25/20 10:03 Dulcolax - PO ONCE PRN CONSTIPATION Calcium Gluconate 1,000 mg 01/25/20 17:29 Calcium Gluconate 10% - IVPUSH 01/25/20 17:30 ONCE ONE Chlorhexidine Gluconate 1 applic 01/25/20 22:00 Hibiclens For Decolonization - TP HS CHUCK Chlorhexidine Gluconate 1 applic 01/25/20 22:00 Hibiclens For Decolonization - TP HS [facility] Dexamethasone Sodium Phosphate 4 mg 01/25/20 07:30 Decadron Injection - IVPUSH ONCE PRN NAUSEA AND/OR VOMITING Diphenhydramine HCl 12.5 mg 01/25/20 07:30 Benadryl Injection - IVPUSH ONCE PRN FOR ITCHING Docusate Sodium 100 mg 01/25/20 10:03 Colace - PO TID PRN CONSTIPATION Enoxaparin Sodium 40 mg 01/26/20 10:00 Lovenox - SQ DAILY [facility] Famotidine 20 mg 01/25/20 10:08 Pepcid - PO BID PRN INDIGESTION Fentanyl 50 mcg 01/25/20 07:30 Sublimaze Injection - IVPUSH [id number] PRN PAIN-PACU ORDER X 4 DOSES ONLY Hydromorphone HCl 10 mg 01/25/20 07:30 Hydromorphone 10 Mg/50 Ml-Ns CHIEF HYDROELECTRIC STATION OPERATOR 02/01/20 07:31 CHIEF HYDROELECTRIC STATION OPERATOR [facility] Protocol Lactated Ringer's 1,000 mls @ 125 mls/hr 01/25/20 07:30 Lactated Ringers Solution IV ASDIR [facility] Cefazolin Sodium 1 gm/ 50 mls @ 100 mls/hr 01/25/20 16:00 Dextrose IVPB 01/27/20 15:59 Q8H-IV CHUCK Metronidazole 250 mg in 50 mls @ 50 mls/hr 01/25/20 23:00 Flagyl 250mg Premixed Ivpb - IVPB Q8H-IV CHUCK Ibuprofen 800 mg 01/25/20 10:03 01/25/20 11:50 Caldolor Injection - IVPB 800 mg Q8H PRN Administration PAIN LEVEL 1-5 Mupirocin 1 applic 01/25/20 22:00 Bactroban Ointment (For Decolonization) - NS 01/30/20 21:59 BID CHUCK Mupirocin 1 applic 01/25/20 22:00 Bactroban Ointment (For Decolonization) - NS 01/30/20 21:59 BID [facility] Non-Formulary Medication 1 tab 01/26/20 10:00 Oral Control PO DAILY CHUCK Ondansetron HCl 4 mg 01/25/20 10:03 Zofran Injection IVPUSH Q4H PRN NAUSEA AND/OR VOMITING Promethazine HCl 12.5 mg 01/25/20 07:30 Phenergan Injection - IVPB Q6H PRN NAUSEA AND/OR VOMITING Simethicone 80 mg 01/25/20 10:03 Mylicon - PO Q4H PRN GAS ASSESSMENT/PLAN: 34 y/o F with no significant PMHx who presented to the hospital for myomectomy due to menorrhagia. The surgery was performed without any complications until patient was found to be hypotensive and anuric while in the PACU and had vaginal bleeding/oozing of blood from her vagina. Pt was subsequently brought back to the OR for ex lap -- noted to have oozing Received PRBCs, FFP/ cryoprecipitate GUCCI tube placed draining sanguinous fluid. Team planning on uterine artery embolization CBC/PT/PTT/ fibrinogen pending Discussed with FLOAT BUILDER/icu teams -- ? DIC/? dilutional transfuse FFP/ 5 units cryoprecipitate. transfuse platelets/ PRBCs broad spectrim antibiotics discussed with nursing staff
--- NOTE | 2020-01-25 23:44 | PN ---
Progress Note (short form) - Note Progress Note: Procedure Note: Arterial Line Place an arterial line in the right radial artery using an Arrow arterial line introducer 20g with wire. The line was placed with sterile technique one attempt, no trauma, secured with 3-0 suture and biopatch, covered with tegaderm, site clean and dry.
[2020-01-26] MEDS: CEFAZOLIN 1 GM in DEXTROSE 5%-WATER - 50 ML IVPB SCH (00:48)
[2020-01-26] MEDS: LACTATED RINGERS SOLUTION 1,000 ML IV SCH ×2 (00:49→22:25)
[2020-01-26] MEDS: SODIUM CHLORIDE 1,000 ML IV SCH (00:53)
[2020-01-26] MEDS: NOREPINEPHRINE BITARTRATE 8,000 MCG/500 ML BAG IVPB SCH (00:55)
[2020-01-26] MEDS: CEFEPIME 2 GM in DEXTROSE 5%-WATER 100 ML IVPB SCH ×3 (01:02→18:59)
[2020-01-26] MEDS: PROPOFOL 1,000,000 MCG/100 ML VIAL IVPB SCH ×4 (02:21→18:38)
[2020-01-26] MEDS: VASOPRESSIN 40 UNITS in SODIUM CHLORIDE 98 ML IVPB SCH ×2 (02:22→16:52)
[2020-01-26 02:42] LABS: HEMATOCRIT 21.1 % (32.4-45.2); HEMOGLOBIN 7.4 GM/dL (10.7-15.3); LYMPH % 22.2 % (8-40); MCH 31.1 pg (25.7-33.7); MCHC 35.2 g/dl (32.0-36.0); MEAN CELL VOLUME 88.3 fl (80-96); MEAN PLT VOLUME 6.7 fl (7.5-11.1); MONO % 8.3 % (3.8-10.2); NEUT % 69.5 % (42.8-82.8); PLATELET COUNT 249 K/MM3 (134-434); RBC 2.39 M/mm3 (3.60-5.2); RDW 14.2 % (11.6-15.6); WHITE BLOOD COUNT 7.1 K/mm3 (4.0-10.0)
[2020-01-26 03:55] LABS: ANISOCYTOSIS 2+; MACROCYTOSIS 0; PLATELET ESTIMATE NORMAL; ROULEAU 2+
[2020-01-26 07:11] LABS: BASO % 0.1 % (0-2.0); HEMATOCRIT 24.4 % (32.4-45.2); HEMOGLOBIN 8.8 GM/dL (10.7-15.3); LYMPH % 20.6 % (8-40); MCH 31.8 pg (25.7-33.7); MCHC 36.2 g/dl (32.0-36.0); MEAN CELL VOLUME 87.9 fl (80-96); MEAN PLT VOLUME 7.1 fl (7.5-11.1); MONO % 9.2 % (3.8-10.2); NEUT % 70.1 % (42.8-82.8); PLATELET COUNT 206 K/MM3 (134-434); RBC 2.77 M/mm3 (3.60-5.2); RETICULOCYTES 1.72 % (0.5-1.5); WHITE BLOOD COUNT 8.2 K/mm3 (4.0-10.0)
--- NOTE | 2020-01-26 07:27 | PN ---
Progress Note (short form) - Note Progress Note: [employer] NURSE SUPERVISOR SURGERY POD #1 34 y/o F with no significant PMHx who presented to the hospital for elective myomectomy due to menorrhagia. The inital surgery was performed without any complications. Brought to PACU and during her recovery she was found to be hypotensive, anuric and oozing blood from her vagina. 2 PRBC transfused during recovery. Pt was brought back to the OR for ex-lap and no identifiable bleeding source found. Intra-operatively she received 3 pRBC, 2 FFP, 1 PLT, 1 Cryo. Brought back to PACU where she received 2 pRBC and 1 FFP. Taken to IR uterine artery embolization last night. In ICU she received the following blood p roducts: 5 pRBC, 2 PLTs, 1 FFP and 1 Cryo. Remains intubated/sedated. On Levophed 18 mcg and Vasopressin 5. Last Vital Signs Temp Pulse Resp BP Pulse Ox 97 F L 94 H 24 H 135/83 100 01/25/20 23:45 01/26/20 06:45 01/26/20 06:45 01/26/20 06:45 01/26/20 06:45 H/H Trend 01/25/20 01/26/20 01/26/20 22:16 02:15 05:15 Hgb 10.8 7.4 L 8.8 L Hct 31.1 L D 21.1 L D 24.4 L D Plt Count 27 L* D 249 D 206 BMP 01/26/20 05:15 INR, PTT INR 1.13 (0.83-1.09) H 01/26/20 05:15 Fibrinogen 158.0 mg/dL (238-498) L 01/25/20 22:16 GEN: intubated/sedated, on pressors for BP support PULM: CTA bilat COR: RRR ABD: Soft. Pfannenstiehl incision c/d/i. : Bakri balloon in place. Linares to gravity (hematuria; light pink) LE: Right groin stab incision c/d/i. No palpable hematoma. All compartments soft. SCDs bilat. No edema A/P: POD #1 s/p Open abdominal myomectomy. Taken back to OR for exploratory lapartomy secondary to hypoentsion, vaginal oozing(blood), anuric. S/p IR uterine artery embolization. Patient in DIC. Patient's coags and PLTs have improved compared to last night. -Sedated/intubated -- vent care per Pulm and Respiratory Team -Transfusion Protocol in progress -Maintain MAP > 65 -keep Hgb > 8 - CBC q4h -Bakri balloon to remain intrauterine (inflated for tamponade) -Monitor & record GUCCI output -Linares to remain in (monitor as it's slightly pink) -Transfuse PLTs if < 50K low threshold, Fibrinogen 100-150 give FFP, if < 100 give Cryo -HemeOnc consulted Tiki following and recommendations appreciated ordered more FFP & Cryo. If patient continues to bleed will administer TXA 1gm -Cont medical optimization should she need to go back to OR emergently Above plan discussed with Dr. Dominguez and agrees. Problem List - Problems (1) DIC (disseminated intravascular coagulation) Code(s): D65 - DISSEMINATED INTRAVASCULAR COAGULATION (2) Menorrhagia Code(s): N92.0 - EXCESSIVE AND FREQUENT MENSTRUATION WITH REGULAR CYCLE (3) S/P myomectomy Code(s): Z98.890 - OTHER SPECIFIED POSTPROCEDURAL STATES
[2020-01-26 07:33] LABS: BLOOD UREA NITROGEN 13.3 mg/dL (7-18); CREATININE 0.9 mg/dL (0.55-1.3); INR 1.13 (0.83-1.09); MAGNESIUM 1.2 mg/dL (1.8-2.4); PHOSPHOROUS 2.8 mg/dL (2.5-4.9); POTASSIUM 4.3 mmol/L (3.5-5.1); PROTHROMBIN TIME (PATIENT) 13.3 SEC (9.7-13.0)
--- NOTE | 2020-01-26 07:35 | PN.HO ---
Progress Note (short form) - Note Progress Note: PAtient seen and examined underwent uterine artery embolization overnight onpressors/intubated/sedated Last Vital Signs Temp Pulse Resp BP Pulse Ox 97 F L 94 H 24 H 135/83 100 01/25/20 23:45 01/26/20 06:45 01/26/20 06:45 01/26/20 06:45 01/26/20 06:45 Cor: RSR, No murmurs, No gallops Lungs: Clear to P&A Abd: Soft, Normal bowel sounds, No organomegaly Ext:No significant edema Labs/meds: reviewed A/P 34 y/o patient s/p myomectomy, with post op. hemorrhage s/p 12 units PRBCs s/p 3 units monodonor platelets -- improved fro 27,000 to [id number] s/p FFP, cryo Transfuse 3 units FFP/ 5 units cyoprecipitate If still bleeding will give tranexamic acid 1 g over 30mins. Monitor CBC/PT/PTT/fibrinogen Discussed with RESEARCH LAB ASSISTANT /icu teams
[2020-01-26 07:36] LABS: ACTIVATED PTT 25.5 SECONDS (25.2-36.5)
[2020-01-26] MEDS ORDERED: TRANEXAMIC ACID 1000 MG/10 ML VIAL IVPB ONE (07:45)
--- NOTE | 2020-01-26 08:04 | OP ---
Operative Note - Note: Operative Date: 01/25/20 Pre-Operative Diagnosis: post operative hemorrhage Operation: repair of small bowel serosal tear Findings: 2.0 cm. small bowel serosal tear Post-Operative Diagnosis: Same as Pre-op Surgeon: Tim Franks Supply Chain Engineer: Penelope Luna Anesthesiologist/WRAPPER STRIPPER: Dieudonne Medina Anesthesia: General Specimens Removed: none Estimated Blood Loss (mls): 0
[2020-01-26 08:05] LABS: CALCIUM 6.1 mg/dL (8.5-10.1)
[2020-01-26] MEDS ORDERED: MAGNESIUM SULF 50% (8.12 MEQ/2 ML-1 GM VIAL) IVPB ONE ×2 (08:09→08:30)
[2020-01-26] MEDS ORDERED: CALCIUM GLUCONATE 10% - 1,000 MG/10 ML VIAL IVPUSH ONE (08:30)
[2020-01-26] MEDS ORDERED: CALCIUM GLUCONATE 10% - 1,000 MG/10 ML VIAL IVPB ONE (09:00)
[2020-01-26] MEDS ORDERED: MAGNESIUM SULFATE IN WATER 2 GM/50 ML IVPB IVPB ONE (09:15)
[2020-01-26] MEDS ORDERED: PT OWN MED DRAWER 7, Y5N ONE ×3 (09:21→21:10)
--- NOTE | 2020-01-26 09:24 | PN ---
Progress Note (short form) - Note Progress Note: Pt much improved this morn from last night. Pt on Leevophed and Vasopressin 5 which is being reduced. pt SP IR uterine artery embolization late last night and case discussed with Dr Hernandes will give 1 gm TXA GUCCI still draining total 2L. no drainage from Bakri last HCT 24 coagulation is corrected by last labs after FFP and cryo and PLTS. Pt on ABS and still intubated Laboratory Last Values WBC 8.2 K/mm3 (4.0-10.0) 01/26/20 05:15 RBC 2.77 M/mm3 (3.60-5.2) L 01/26/20 05:15 Hgb 8.8 GM/dL (10.7-15.3) L 01/26/20 05:15 Hct 24.4 % (32.4-45.2) L D 01/26/20 05:15 MCV 87.9 fl (80-96) 01/26/20 05:15 MCH 31.8 pg (25.7-33.7) 01/26/20 05:15 MCHC 36.2 g/dl (32.0-36.0) H 01/26/20 05:15 RDW 15.0 % (11.6-15.6) 01/26/20 05:15 Plt Count 206 K/MM3 (134-434) 01/26/20 05:15 MPV 7.1 fl (7.5-11.1) L 01/26/20 05:15 Absolute Neuts (auto) 5.7 K/mm3 (1.5-8.0) 01/26/20 05:15 Neutrophils % 70.1 % (42.8-82.8) 01/26/20 05:15 Neutrophils % (Manual) 52.5 % (42.8-82.8) 01/26/20 02:15 Band Neutrophils % 13.9 % 01/26/20 02:15 Lymphocytes % 20.6 % (8-40) 01/26/20 05:15 Lymphocytes % (Manual) 18.8 % (8-40) D 01/26/20 02:15 Monocytes % 9.2 % (3.8-10.2) 01/26/20 05:15 Monocytes % (Manual) 9 % (3.8-10.2) D 01/26/20 02:15 Eosinophils % 0.0 % (0-4.5) 01/26/20 05:15 Eosinophils % (Manual) 0.0 % (0-4.5) 01/26/20 02:15 Basophils % 0.1 % (0-2.0) D 01/26/20 05:15 Basophils % (Manual) 0.0 % (0-2.0) 01/26/20 02:15 Myelocytes % (Man) 5 % (0-2) H D 01/26/20 02:15 Promyelocytes % (Man) 0 % (0-2) 01/26/20 02:15 Blast Cells % (Manual) 0 % (0-0) 01/26/20 02:15 Nucleated RBC % 0 % (0-0) 01/26/20 05:15 Metamyelocytes 0 % (0-2) D 01/26/20 02:15 Hypochromia 2+ 01/26/20 02:15 Platelet Estimate Normal 01/26/20 02:15 Polychromasia 0 01/26/20 02:15 Poikilocytosis 1+ 01/26/20 02:15 Basophilic Stippling 1+ 01/26/20 02:15 Anisocytosis 2+ 01/26/20 02:15 Microcytosis 2+ 01/26/20 02:15 Macrocytosis 0 01/26/20 02:15 Rouleaux 2+ 01/26/20 02:15 Retic Count 1.72 % (0.5-1.5) H 01/26/20 05:15 PT with INR 13.30 SEC (9.7-13.0) H 01/26/20 05:15 INR 1.13 (0.83-1.09) H 01/26/20 05:15 PTT (Actin FS) 25.5 SECONDS (25.2-36.5) 01/26/20 05:15 Fibrinogen 218.0 mg/dL (238-498) L 01/26/20 05:20 D-Dimer 79306 ng/ml (0-500) H 01/26/20 05:20 Sodium 140 mmol/L (136-145) 01/26/20 05:15 Potassium 4.3 mmol/L (3.5-5.1) 01/26/20 05:15 Chloride 110 mmol/L (98-107) H 01/26/20 05:15 Carbon Dioxide 24 mmol/L (21-32) 01/26/20 05:15 Anion Gap 6 MMOL/L (8-16) L 01/26/20 05:15 BUN 13.3 mg/dL (7-18) 01/26/20 05:15 Creatinine 0.9 mg/dL (0.55-1.3) 01/26/20 05:15 Est GFR (CKD-EPI)AfAm 95.34 01/26/20 05:15 Est GFR (CKD-EPI)NonAf 82.26 01/26/20 05:15 Random Glucose 194 mg/dL (74-106) H 01/26/20 05:15 Calcium 6.1 mg/dL (8.5-10.1) L* 01/26/20 05:15 Phosphorus 2.8 mg/dL (2.5-4.9) 01/26/20 05:15 Magnesium 1.2 mg/dL (1.8-2.4) L 01/26/20 05:15 Total Bilirubin 0.6 mg/dL (0.2-1) 01/25/20 18:15 AST 20 U/L (15-37) 01/25/20 18:15 ALT 11 U/L (13-61) L 01/25/20 18:15 Alkaline Phosphatase 22 U/L (45-117) L 01/25/20 18:15 LD Total 284 U/L (84-246) H 01/26/20 05:15 Total Protein 2.9 g/dl (6.4-8.2) L 01/25/20 18:15 Albumin 1.5 g/dl (3.4-5.0) L 01/25/20 18:15 Serum , Qual Negative 01/25/20 06:15 Blood Type O POSITIVE 01/26/20 05:20 Antibody Screen Negative 01/26/20 05:20 Direct Antiglob Test Negative (NEGATIVE) 01/26/20 05:20 Crossmatch See Detail 01/25/20 06:15 Crossmatch IS Only See Detail 01/25/20 06:15 34 y/o F with no significant PMHx who presented to the hospital for elective myomectomy due to menorrhagia. The inital surgery was performed without any complications. Brought to PACU and during her recovery she was found to be hypotensive, anuric and oozing blood from her vagina. 2 PRBC transfused during recovery. Pt was brought back to the OR for ex-lap and no identifiable bleeding source found. Intra-operatively she received 3 pRBC, 2 FFP, 1 PLT, 1 Cryo. Brought back to PACU where she received 2 pRBC and 1 FFP. Taken to IR uterine artery embolization last night. In ICU she received the following blood products: 5 pRBC, 2 PLTs, 1 FFP and 1 Cryo. Remains intubated/sedated. On Levophed 18 mcg and Vasopressin 5. Ass Post surgical DIC - case discussed with dry man Onc who agrees with managemnt of TXA and IR and no surgical intervention Plan TXA 1 gm repeat labs after products given Prbc x 2 units FFP 4 units Continue abs monitor GUCCI drainage will discuss with [facility] ICU in case needs more factors monitor Bakri drainage
[2020-01-26] MEDS ORDERED: BIRTH CONTROL PO SCH (10:00)
[2020-01-26] MEDS ORDERED: ENOXAPARIN NA (PORCINE) 40 MG/0.4 ML DISP.SYRIN SQ SCH (10:00)
--- NOTE | 2020-01-26 11:18 | PN ---
Progress Note (short form) - Note Progress Note: 34F s/p abdominal myomectomy under GETA. Course c/b postoperative hypotension, hemorrhage in PACU. s/p reexploration without identifiable source of bleeding. s/p IR uterine artery embolization. Currently in ICU for management of ongoing medical bleeding. 290cc blood removed from GUCIC drain since 0700. Receiving blood products and TXA. Vasopressin @5U/h, NE titrated down to 3mcg/min. Vital Signs Temp 99.7 F H 01/26/20 10:03 Pulse 82 01/26/20 09:59 Resp 22 H 01/26/20 09:59 BP 142/80 01/26/20 09:59 Pulse Ox 100 01/26/20 08:16 Intake & Output 01/25/20 01/25/20 01/26/20 11:59 23:59 11:59 Intake Total 4000 6050 5774.1 Output Total 1000 4780 2325 Balance 3000 1270 3449.1 Weight 178 lb 6.4 oz Intake: IV 4000 4500 2123.1 DIPRIVAN - 1,000,000 mcg 288 In 100 ml @ 10 MCG/KG/MIN 4.436 mls/hr IVPB TITR CHUCK Rx#:[id number] LEVOPHED BAG 8,000 mcg In 585.6 500 ml @ 5 MCG/MIN 18.75 mls/hr IVPB TITR CHUCK Rx# :[id number] MIDAZOLAM 100MG/100ML-0.9 72 %NACL 100 mg In 100 ml @ 1 MG/HR 1 mls/hr IVPB TITR CHUCK Rx#:[id number] Normal Saline - 1,000 ml 1000 @ 125 mls/hr IV ASDIR CHUCK Rx#:[id number] Vasopressin 177.5 IVPB 250 Blood Product 1550 Packed Cells 1750 Fresh Frozen Plasma 901 Platelets 600 Cryoprecipitate 150 Output: Drainage 1260 1515 Right Lateral 120 Right Lower Abdomen 760 1395 Urine 100 1520 810 Linares 420 810 Estimated Blood Loss 700 2000 Other 200 Other: Voiding Method Indwelling Catheter Indwelling Catheter Bowel Movement No Height 5 ft 5 in Body Mass Index (BMI) 29.7 Weight Measurement Method Built in Bedscale - intubated, sedated - RRR, CTAB - abdomen soft, NT, ND CBC, BMP 01/26/20 05:15 01/26/20 05:15 A/P: s/p abdominal myomectomy complicated by postoperative hemorrhage. Ongoing medical management of bleeding. Vasopressor support and mechanical ventilation. - Since OR: 12U PRBC, 3 pool platelets, 4U FFP, 2 pool cyro. Since this AM 1 U PRBC, 2U FFP, 2 pool cryo - Care per ICU, will follow
[2020-01-26] MEDS ORDERED: ACETAMINOPHEN 1000 MG/100 ML VIAL (NON FORMULARY) IVPB ONE (11:30)
--- NOTE | 2020-01-26 11:40 | PN ---
Physical Exam: SUBJECTIVE: Patient seen and examined. Pt much improved this morning from last night. Pt on Levophed 10 and Vasopressin 5 which is being reduced as pt MAP >100 at the moment. Pt underwent IR uterine artery embolization late last night and case discussed with IR who believes procedure went well and patient should stop bleeding if uterus is source. Dr Fairbanks will give 1 gm TXA as GUCCI still draining total 2L overnight, 3L from operation yesterday. No drainage from Bakri baloon overnight, last Hct was 24 coagulation is corrected, D-dimer improving after FFP and cryo and PLT count much improved after 3 bags of plt's. Pt intubated and sedated comfortable, afebrile, vital signs stable. OBJECTIVE: Vital Signs Period Temp Pulse Resp BP Sys/Conrad Pulse Ox Last 24 Hr 97 F-100.4 F 60-159 12-40 73-176/40-101 87-100 GENERAL: The patient is awake, alert, and fully oriented, in no acute distress. NECK: supple. LUNGS: Breath sounds HEART: Regular rate and rhythm, S1, S2 without murmur, rub or gallop. ABDOMEN: Soft, non-distended, uterine balloon in place. GUCCI draining 2L of bright red blood coming from abdomen. EXTREMITIES: 2+ pulses, warm, well-perfused, no edema. NEUROLOGICAL: intubated and sedated SKIN: Warm, dry, normal turgor, no rashes or lesions noted Laboratory Results - last 24 hr Active Medications Generic Name Dose Route Start Last Admin Trade Name Freq PRN Reason Stop Dose Admin Chlorhexidine Gluconate 1 applic 01/25/20 22:00 01/25/20 22:00 Hibiclens For Decolonization - TP 1 applic HS CHUCK Administration Diphenhydramine HCl 12.5 mg 01/25/20 23:18 Benadryl Injection - IVPUSH ONCE PRN FOR ITCHING Fentanyl 50 mcg 01/25/20 17:38 Sublimaze Injection - IVPUSH [id number] PRN PAIN-PACU ORDER X 4 DOSES ONLY Metronidazole 250 mg in 50 mls @ 50 mls/hr 01/25/20 23:00 01/26/20 01:02 Flagyl 250mg Premixed Ivpb - IVPB 50 mls/hr Q8H-IV CHUCK Administration Lactated Ringer's 1,000 mls @ 125 mls/hr 01/25/20 17:45 01/26/20 00:49 Lactated Ringers Solution IV Not Given ASDIR CHUCK Midazolam HCl 100 mg in 100 mls @ 1 mls/hr 01/25/20 19:30 01/26/20 07:03 Midazolam 100mg/100ml-0.9%Nacl IVPB 6 mg/hr TITR CHUCK 6 mls/hr Infusion Protocol 1 MG/HR Cefepime HCl 2 gm in 50 mls @ 100 mls/hr 01/26/20 21:00 Maxipime 2gm Ivpb (Premix) IVPB Q8H-IV CHUCK Protocol Sodium Chloride 1,000 mls @ 125 mls/hr 01/25/20 21:45 01/26/20 00:53 Normal Saline - IV 125 mls/hr ASDIR CHUCK Administration Propofol 1,000,000 mcg in 100 mls @ 4.436 mls/hr 01/25/20 21:45 01/26/20 07:04 Diprivan - IVPB 50 mcg/kg/min TITR CHUCK 22.181 mls/hr Administration Protocol 10 MCG/KG/MIN Cefepime HCl 2 gm/ Dextrose 100 mls @ 100 mls/hr 01/25/20 22:00 01/26/20 10:48 IVPB 01/26/20 18:59 100 mls/hr Q8H-IV CHUCK Administration Protocol Norepinephrine Bitartrate 8,000 mcg in 500 mls @ 18.75 mls/hr 01/26/20 00:30 01/26/20 11:28 Levophed Bag IVPB 2 mcg/min TITR CHUCK 7.5 mls/hr Titration Protocol 5 MCG/MIN Vasopressin 40 units/ Sodium 100 mls @ 5 mls/hr 01/26/20 02:00 01/26/20 05:57 Chloride IVPB 5 units/hr ASDIR CHUCK 12.5 mls/hr Titration Protocol 2 UNITS/HR Mupirocin 1 applic 01/25/20 22:00 01/25/20 22:00 Bactroban Ointment (For Decolonization) - NS 01/30/20 21:59 1 applic BID CHUCK Administration Ondansetron HCl 4 mg 01/25/20 17:38 Zofran Injection IVPUSH Q6H PRN NAUSEA AND/OR VOMITING Promethazine HCl 12.5 mg 01/25/20 17:38 Phenergan Injection - IVPUSH Q6H PRN NAUSEA-FOR RESCUE AFTER 15 MIN ASSESSMENT/PLAN: This is a 34 y/o F with no significant PMHx who presented to the hospital for myomectomy due to menorrhagia. The surgery was performed without any complications until patient was found to be hypotensive and anuric while in the PACU and had vaginal bleeding/oozing of blood from her vagina. #Neuro - AOX 3 prior to intubation - no neurologic issues at this time - on fentanyl drip as pt is hypotensive #Pulm - pt is intubated and sedated with fentanyl from the time of surgery - no acute pulm pathology at this time #Cardio - sinus tachy due to severe hypovolemia from the massive Hemorrhage - will continue to hydrate with NS wide open - maintaining MAP >65, A line in place and on levo 12, 5 vaso with MAP >100 at this time will keep MAP elevated in event pt needs hysterectomy #Heme - pt in DIC - pt is s/p 12 prbc's, 5 ffp (ordered 2 more), 20 units total cryo, and 3 platelets - pt was given 2g calcium gluconate to counter act the citrate chelation in the blood products. - pt has a balloon vac in the uterus to act as a tamponade and GUCCI drain in place which we will monitor overnight to ensure the bleeding is controlled. - cbc, coags, fibrinogen, and d-dimer q3h's - transfuse plt's <50K low threshold, fibrinogen 100-150 give ffp, <100 give cryo - total 12 prbcs given, 3 plt's, 4 ffp (3 more ordered), 10 units cryo given (10 more units ordered) for continuing bleeding - heme onc consulted with recommendations provided - IV LR wide open boluses prn to maintain MAP >65 - IR consulted for uterine embolization with failure to cessate bleed as pt still draining from GUCCI with what looks to be fresh blood. Will assess need for hysterectomy as per OBGYN's discretion. - 1g tranexamic acid given to patient for continued bleeding s/p blood products. - coags and platelets vastly improving - [facility] informed of case in the event pt worsens in clinical status and requires transfer, (spoke W/ Dr. Ez Henry chief of crit care there). DVT ppx: holding chemical ppx, SCD's for now Dispo: We will continue to follow the patient. Thank you for this consultative opportunity. Visit type - Emergency Visit Emergency Visit: Yes ED Registration Date: 01/25/20 Care time: The patient presented to the Emergency Department on the above date and was hospitalized for further evaluation of their emergent condition. - New Patient This patient is new to me today: Yes Date on this admission: 02/01/20 - Critical Care Critical Care patient: Yes Total Critical Care Time (in minutes): 35 Critical Care Statement: The care of this patient involved high complexity decision making to prevent further life threatening deterioration of the patient's condition and/or to evaluate & treat vital organ system(s) failure or risk of failure. - Discharge Referral Referred to [facility] Med [facility] No ATTENDING PHYSICIAN STATEMENT I saw and evaluated the patient. I reviewed the resident's note and discussed the case with the resident. I agree with the resident's findings and plan as documented. SUBJECTIVE: OBJECTIVE: ASSESSMENT AND PLAN:
--- NOTE | 2020-01-26 11:51 | PN ---
Teaching Attending Note Name of Resident: Erik Nuñez ATTENDING PHYSICIAN STATEMENT I saw and evaluated the patient. I reviewed the resident's note and discussed the case with the resident. I agree with the resident's findings and plan as documented. SUBJECTIVE: Pt seen and examined in the ICU. s/p 12 units PRBC so far, FFP, platelets, cr yoprecipitate. Still bloody drainage in GUCCI drain. On levophed and vasopressin gtts. Tachycardia improved. OBJECTIVE: Vital Signs Period Temp Pulse Resp BP Sys/Conrad Pulse Ox Last 24 Hr 97 F-100.4 F 61-159 12-40 73-176/40-101 87-100 Intake & Output 01/23/20 01/24/20 01/25/20 01/26/20 23:59 23:59 23:59 23:59 Intake Total 73836 5972.1 Output Total 5780 2325 Balance 4270 3647.1 Weight 80.921 kg Gen: intubated, sedated Heart: RRR Lung: decreased breath sounds at the bases Abd: soft, nontender, dressings dry Ext: no edema CBC, BMP 01/26/20 05:15 01/26/20 05:15 Active Medications Chlorhexidine Gluconate (Hibiclens For Decolonization -) 1 applic TP HS CHUCK Last Admin: 01/25/20 22:00 Dose: 1 applic Documented by: Diphenhydramine HCl (Benadryl Injection -) 12.5 mg IVPUSH ONCE PRN PRN Reason: FOR ITCHING Fentanyl (Sublimaze Injection -) 50 mcg IVPUSH [id number] PRN PRN Reason: PAIN-PACU ORDER X 4 DOSES ONLY Metronidazole (Flagyl 250mg Premixed Ivpb -) 250 mg in 50 mls @ 50 mls/hr IVPB Q8H-IV CHUCK Last Admin: 01/26/20 01:02 Dose: 50 mls/hr Documented by: Lactated Ringer's (Lactated Ringers Solution) 1,000 mls @ 125 mls/hr IV ASDIR CHUCK Last Admin: 01/26/20 00:49 Dose: Not Given Documented by: Midazolam HCl (Midazolam 100mg/100ml-0.9%Nacl) 100 mg in 100 mls @ 1 mls/hr IVPB TITR CHUCK; Protocol Last Infusion: 01/26/20 07:03 Dose: 6 mg/hr, 6 mls/hr Documented by: Cefepime HCl (Maxipime 2gm Ivpb (Premix)) 2 gm in 50 mls @ 100 mls/hr IVPB Q8H- IV CHUCK; Protocol Sodium Chloride (Normal Saline -) 1,000 mls @ 125 mls/hr IV ASDIR CHUCK Last Admin: 01/26/20 00:53 Dose: 125 mls/hr Documented by: Propofol (Diprivan -) 1,000,000 mcg in 100 mls @ 4.436 mls/hr IVPB TITR CHUCK; Protocol Last Admin: 01/26/20 11:33 Dose: 50 mcg/kg/min, 22.181 mls/hr Documented by: Cefepime HCl 2 gm/ Dextrose 100 mls @ 100 mls/hr IVPB Q8H-IV CHUCK; Protocol Stop: 01/26/20 18:59 Last Admin: 01/26/20 10:48 Dose: 100 mls/hr Documented by: Norepinephrine Bitartrate (Levophed Bag) 8,000 mcg in 500 mls @ 18.75 mls/hr IVPB TITR CHUCK; Protocol Last Titration: 01/26/20 11:28 Dose: 2 mcg/min, 7.5 mls/hr Documented by: Vasopressin 40 units/ Sodium (Chloride) 100 mls @ 5 mls/hr IVPB ASDIR CHUCK; Protocol Last Titration: 01/26/20 05:57 Dose: 5 units/hr, 12.5 mls/hr Documented by: Mupirocin (Bactroban Ointment (For Decolonization) -) 1 applic NS BID CHUCK Stop: 01/30/20 21:59 Last Admin: 01/25/20 22:00 Dose: 1 applic Documented by: Ondansetron HCl (Zofran Injection) 4 mg IVPUSH Q6H PRN PRN Reason: NAUSEA AND/OR VOMITING Promethazine HCl (Phenergan Injection -) 12.5 mg IVPUSH Q6H PRN PRN Reason: NAUSEA-FOR RESCUE AFTER 15 MIN ASSESSMENT AND PLAN: Uterine Fibroids s/p Myomectomy POD 1 Acute Blood Loss Anemia DIC Hemorrhagic Shock Thrombocytopenia - monitor CBC, coags, fibrinogen level - transfuse as needed - tranexamic acid if continues to bleed - calcium - titrate pressors to maintain MAP >65 - monitor GUCCI output - on empiric antibiotics - f/u cultures - sedate for vent synchrony - titrate Fio2 to keep SpO2 >90% - DVT prophylaxis - continue ICU monitoring critical care time spent in reviewing chart, evaluating patient and formulating plan 35 min
[2020-01-26 12:07] LABS: BASO % 0.2 % (0-2.0); HEMOGLOBIN 7.6 GM/dL (10.7-15.3); LYMPH % 17.3 % (8-40); MCH 31.5 pg (25.7-33.7); MEAN CELL VOLUME 87.6 fl (80-96); MEAN PLT VOLUME 6.7 fl (7.5-11.1); MONO % 8.3 % (3.8-10.2); NEUT % 74.2 % (42.8-82.8); PLATELET COUNT 121 K/MM3 (134-434); RDW 14.5 % (11.6-15.6)
[2020-01-26] MEDS: MUPIROCIN 2% TOPICAL OINTMENT FOR DECOLONIZATION NS SCH ×2 (12:08→21:19)
[2020-01-26 12:14] LABS: INR 1.17 (0.83-1.09); PROTHROMBIN TIME (PATIENT) 13.8 SEC (9.7-13.0)
--- NOTE | 2020-01-26 14:04 | CON.ID ---
Consult Consult Specialty:: infectious diseases Referred by:: dr copeland Reason for Consultation:: dic,myomectomy - Past Medical History ...LMP: 12/26/19 ...LMP Comment: approximate - Smoking History Smoking history: Never smoked Home Medications - Allergies Allergies/Adverse Reactions: Allergies Allergy/AdvReac Type Severity Reaction Status Date / Time No Known Allergies Allergy Verified 01/25/20 06:45 - Home Medications Home Medications: Ambulatory Orders Oral Control 1 tab PO DAILY 01/21/20 Physical Exam Vital Signs: Vital Signs Temperature 99.7 F H 01/26/20 13:00 Pulse Rate 75 01/26/20 13:00 Respiratory Rate 21 H 01/26/20 13:00 Blood Pressure 116/68 01/26/20 13:00 O2 Sat by Pulse Oximetry (%) 100 01/26/20 12:00 Labs: CBC, BMP 01/26/20 12:00 01/26/20 05:15
--- NOTE | 2020-01-26 14:34 | PATH ---
Surgical Pathology Report Patient Name: DOMINGUEZ GAN [facility]. Rec. #: [id number] /Age/Gender: 1985 (Age: 34) / F Account: [id number] Location: [facility] [employer]NAGER Taken: 01/25/2020 Received: 01/25/2020 Reported: 01/26/2020 Physicians: Amanda Dominguez M.D. Specimen(s) Received FIBROIDS Clinical History Fibroids Final Diagnosis FIBROIDS, EXCISION: LEIOMYOMAS (879 G) WITH FOCAL HYALINIZATION AND CALCIFICATION. Electronically Signed Estella Reyes M.D. Gross Description Received in formalin labeled "fibroids," is an 879 g aggregate of 13 cuellar-pink, rubbery nodules, consistent with fibroids. The fibroids range from 1.1-8.0 cm in greatest dimension. Sectioning reveals foci of hemorrhage within the four largest fibroids. The smaller fibroids display cuellar, rubbery parenchyma with whorled architecture. Aircraft [employer]in [employer] sections are submitted in 13 cassettes as follows: 1-4-smaller fibroids; 5-13-four largest fibroids (89-62-gllprmv fibroid). DL/01/25/2020 saudi01/25/2020
--- NOTE | 2020-01-26 15:23 | PN.HO ---
Progress Note (short form) - Note Progress Note: Patient seen and examined in the ICU. Intubated and sedated. Underwent uterine artery embolization overnight Last Vital Signs Temp Pulse Resp BP Pulse Ox 99.7 F H 75 21 H 116/68 100 01/26/20 13:00 01/26/20 13:00 01/26/20 13:00 01/26/20 13:00 01/26/20 12:00 Cor: RSR, No murmurs, No gallops Lungs: Clear to P&A Abd: Soft, Normal bowel sounds, No organomegaly. Catheter draining (~ 100 cc of blood) Ext:No significant edema Labs/meds: reviewed A/P 34 y/o patient s/p myomectomy, with post op. hemorrhage s/p 12 units PRBCs s/p 3 units monodonor platelets -- improved for 27,000 to [id number] s/p FFP, cryo received tranexamic acid (1 gram over 30 min) at ~ 11 AM (one hr earlier than when we examined her) Transfuse 3 units FFP/ 5 units cyoprecipitate Monitor CBC/PT/PTT/fibrinogen Discussed with ICU resident. Dr. Fairbanks earlier discussed with [facility] [employer] Per RN report bleeding improving but still ~ 100 cc/hr. If no improvement, may consider additional tranexamic acid. If still no improvement my consider recombinant activated factor VII (Novoseven). I spoke with [facility] ([id number]) and if needed they will order it from [facility]. Several reports in the literature support the use of Novoseven in intractable uterine bleeding to prevent hysterectomy. We will follow closely.
[2020-01-26 15:42] LABS: ACTIVATED PTT 26.3 SECONDS (25.2-36.5)
[2020-01-26] MEDS: ARTIFICIAL TEARS (POLYVINYL ALCOHOL) OPTH DROPS OU PRN (18:04)
[2020-01-26 19:39] LABS: HEMATOCRIT 24.8 % (32.4-45.2); HEMOGLOBIN 8.8 GM/dL (10.7-15.3); MCH 31.5 pg (25.7-33.7); MCHC 35.5 g/dl (32.0-36.0); MEAN CELL VOLUME 88.6 fl (80-96); MEAN PLT VOLUME 7.6 fl (7.5-11.1); RDW 14.2 % (11.6-15.6); WHITE BLOOD COUNT 5.3 K/mm3 (4.0-10.0)
[2020-01-26 19:47] LABS: INR 1.07 (0.83-1.09); PROTHROMBIN TIME (PATIENT) 12.6 SEC (9.7-13.0)
[2020-01-26 19:50] LABS: ACTIVATED PTT 24.2 SECONDS (25.2-36.5); PLATELET COUNT 100 K/MM3 (134-434)
[2020-01-26 19:55] LABS: MONO % 7.7 % (3.8-10.2); NEUT % 75.5 % (42.8-82.8)
[2020-01-26 19:56] LABS: EOS % 0.1 % (0-4.5)
[2020-01-26] MEDS: MIDAZOLAM IN 0.9 % SOD.CHLORID 100 MG/100 ML PLAST..BAG IVPB SCH (20:00)
[2020-01-26] MEDS ORDERED: CEFEPIME HCL/D5W 2 GM/50 ML BAG IVPB SCH (21:00)
[2020-01-26] MEDS: CHLORHEXIDINE GLUCONATE 0.12% 15ML CUP MM SCH (21:18)
[2020-01-26 21:38] LABS: ALBUMIN 2.4 g/dl (3.4-5.0); BILIRUBIN,TOTAL 0.4 mg/dL (0.2-1); BLOOD UREA NITROGEN 8.9 mg/dL (7-18); CREATININE 0.5 mg/dL (0.55-1.3); MAGNESIUM 2.1 mg/dL (1.8-2.4); PHOSPHOROUS 1.6 mg/dL (2.5-4.9); POTASSIUM 3.6 mmol/L (3.5-5.1); TOT PROT 4.7 g/dl (6.4-8.2)
[2020-01-26 21:42] LABS: CALCIUM 6.8 mg/dL (8.5-10.1)
[2020-01-26] MEDS ORDERED: ACETAMINOPHEN INJECTION 100 ML IVPB ONE (21:54)
[2020-01-26] MEDS: ACETAMINOPHEN 1000 MG/100 ML VIAL (NON FORMULARY) IVPB PRN (21:58)
[2020-01-26] MEDS: CHLORHEXIDINE GLUCONATE 4% CLEANSER FOR DECOLONIZATION TP SCH (22:00)
[2020-01-27] MEDS: CEFEPIME 2 GM in DEXTROSE 5%-WATER 100 ML IVPB SCH ×3 (01:27→17:26)
[2020-01-27] MEDS: PROPOFOL 1,000,000 MCG/100 ML VIAL IVPB SCH ×5 (02:14→21:54)
[2020-01-27] MEDS: SODIUM CHLORIDE 1,000 ML IV SCH (02:30)
[2020-01-27 02:32] LABS: HEMATOCRIT 22.5 % (32.4-45.2); HEMOGLOBIN 8.1 GM/dL (10.7-15.3); MCH 31.5 pg (25.7-33.7); MCHC 35.9 g/dl (32.0-36.0); MEAN CELL VOLUME 87.6 fl (80-96); MEAN PLT VOLUME 7.3 fl (7.5-11.1); PLATELET COUNT 135 K/MM3 (134-434); RBC 2.57 M/mm3 (3.60-5.2); RDW 14.1 % (11.6-15.6); WHITE BLOOD COUNT 5.9 K/mm3 (4.0-10.0)
[2020-01-27 02:43] LABS: INR 1.04 (0.83-1.09); PROTHROMBIN TIME (PATIENT) 12.3 SEC (9.7-13.0)
[2020-01-27 02:45] LABS: ACTIVATED PTT 24.2 SECONDS (25.2-36.5)
[2020-01-27 03:21] LABS: ALBUMIN 2.6 g/dl (3.4-5.0); BILIRUBIN,TOTAL 0.4 mg/dL (0.2-1); BLOOD UREA NITROGEN 7.6 mg/dL (7-18); CALCIUM 7.1 mg/dL (8.5-10.1); CREATININE 0.5 mg/dL (0.55-1.3); POTASSIUM 3.4 mmol/L (3.5-5.1); TOT PROT 5.1 g/dl (6.4-8.2)
[2020-01-27] MEDS ORDERED: POTASSIUM CHLORIDE 20 MEQ PREMIX IVPB 100 ML IVPB ONE ×2 (05:09→07:04)
[2020-01-27 07:15] LABS: BASO % 0.3 % (0-2.0); EOS % 0.3 % (0-4.5); HEMATOCRIT 25.8 % (32.4-45.2); HEMOGLOBIN 9.4 GM/dL (10.7-15.3); LYMPH % 17.4 % (8-40); MCH 31.5 pg (25.7-33.7); MCHC 36.4 g/dl (32.0-36.0); MEAN CELL VOLUME 86.5 fl (80-96); MEAN PLT VOLUME 7.6 fl (7.5-11.1); MONO % 6.5 % (3.8-10.2); NEUT % 75.5 % (42.8-82.8); PLATELET COUNT 139 K/MM3 (134-434); RBC 2.98 M/mm3 (3.60-5.2); RDW 13.9 % (11.6-15.6); WHITE BLOOD COUNT 6.8 K/mm3 (4.0-10.0)
[2020-01-27 07:25] LABS: INR 0.97 (0.83-1.09); PROTHROMBIN TIME (PATIENT) 11.4 SEC (9.7-13.0)
[2020-01-27 07:56] LABS: ALBUMIN 2.6 g/dl (3.4-5.0); BILIRUBIN,TOTAL 0.7 mg/dL (0.2-1); BLOOD UREA NITROGEN 7.1 mg/dL (7-18); CALCIUM 7.1 mg/dL (8.5-10.1); CREATININE 0.6 mg/dL (0.55-1.3); MAGNESIUM 2.3 mg/dL (1.8-2.4); PHOSPHOROUS 1.4 mg/dL (2.5-4.9); POTASSIUM 3.5 mmol/L (3.5-5.1); TOT PROT 5.2 g/dl (6.4-8.2)
[2020-01-27 08:29] LABS: ACTIVATED PTT 25.1 SECONDS (25.2-36.5)
--- NOTE | 2020-01-27 08:40 | PN ---
Progress Note (short form) - Note Progress Note: POD 2, s/p open abdominal myomectomy c/b postoperative hemorrhage s/p exploration, placement of Baki balloon/GUCCI, s/p uterine artery embolization Pt seen and examined. Remains intubated/sedated. Has been stable off pressors since yesterday. No events overnight per RN. Vital Signs Temp 99.1 F 01/27/20 06:14 Pulse 77 01/27/20 06:14 Resp 20 01/27/20 07:58 BP 100/66 01/27/20 06:14 Pulse Ox 100 01/27/20 08:35 Intake & Output 01/26/20 01/26/20 01/27/20 11:59 23:59 11:59 Intake Total 5972.1 2032 2922.4 Output Total 2325 2180 4140 Balance 3647.1 -148 -1217.6 Intake: IV 2123.1 552 1472.4 DIPRIVAN - 1,000,000 mcg 288 288 707.4 In 100 ml @ 10 MCG/KG/MIN 4.436 mls/hr IVPB TITR CHUCK Rx#:[id number] LEVOPHED BAG 8,000 mcg In 585.6 120 500 ml @ 5 MCG/MIN 18.75 mls/hr IVPB TITR CHUCK Rx# :[id number] MIDAZOLAM 100MG/100ML-0.9 72 72 63 %NACL 100 mg In 100 ml @ 1 MG/HR 1 mls/hr IVPB TITR CHUCK Rx#:[id number] Normal Saline - 1,000 ml 1000 671 @ 125 mls/hr IV ASDIR CHUCK Rx#:[id number] Vasopressin 177.5 72 31.0 IVPB 250 300 200 Packed Cells 1750 350 350 Fresh Frozen Plasma 901 625 600 Platelets 600 205 300 Cryoprecipitate 348 Output: Drainage 1515 580 540 Right Lower Abdomen 1515 580 540 Urine 810 1600 3600 Arteaga 810 1600 3600 Other: Voiding Method Indwelling Catheter Indwelling Catheter Indwelling Catheter Bowel Movement No CBC, BMP 01/27/20 06:00 01/27/20 06:00 Gen: intubated/sedated Resp: vented CV: tachy to low 100s, regular rhythm Abdo: soft, full, hypoactive bowel sounds, dressing c/d/i, incision intact with steristrips in place, no oozing noted, rlq with GUCCI in place, dried blood noted around Ext: + edema ue/les GUCCI. Tubing stripped, approx 75ml blood in reservoir A/P: 34 y/o F w/ PMHx leiomyomas/menorrhagia, admitted for elective open abdominal myomectomy on 01/24, c/b postoperative hemorrhage s/p exploration, placement of Bakri balloon/GUCCI (diffuse bleeding found), s/p uterine artery embolization, labs c/w DIC, now w/ Hemorrhagic Shock, Thrombocytopenia. Blood products: PACU after 1st SX: 2 units pRBCs Intraop (Exploration): 3 units pRBCs, 2 FFP, 1 platelets, 1 cryo Pacu after exploration: 2 units Prbcs, 1 FFP 01/24: uterine artery embolization overnight ICU (01/24): 5 units pRBCs, 2 platelets, 1 FFP, 1 cryo 01/25: 3 units pRBCs, 1 platelets, 5 FFP, 2 cryo, received 1G TXA Off pressors since 01/25 Bakri balloon removed 01/25 GUCCI drain from midnight 01/25 to midnight last night: 2,095 with additional 450ml since midnight UOP from midnight 01/25 to midnight last night 2,410 with 3,600 since midnight -vent care per Pulm and Respiratory Team -continue to monitor CBC, coags, fibrinogen -monitor/record GUCCI output -continue empiric antibiotics -Keep arteaga in place, Strict I&Os -DVT prophylaxis with SCDS, no chemical prophylaxis -Keep hgb >8, transfuse PLTs if < 50K low threshold, Fibrinogen 100-150 give FFP, if < 100 give Cryo -Hemeonc consult appreciated -continue ICU monitoring -possible repeat embolization per Dr Dominguez above d/w attending Dr Dominguez
[2020-01-27] MEDS ORDERED: PT OWN MED DRAWER 7, Y5N ONE ×2 (08:48→15:00)
[2020-01-27] MEDS: ACETAMINOPHEN 1000 MG/100 ML VIAL (NON FORMULARY) IVPB PRN (08:53)
[2020-01-27] MEDS: MUPIROCIN 2% TOPICAL OINTMENT FOR DECOLONIZATION NS SCH ×2 (09:29→21:54)
[2020-01-27] MEDS ORDERED: FUROSEMIDE 40 MG/4 ML INJECTABLE VIAL IVPUSH ONE (09:30)
[2020-01-27] MEDS: CHLORHEXIDINE GLUCONATE 0.12% 15ML CUP MM SCH ×2 (09:36→21:54)
[2020-01-27] MEDS ORDERED: TRANEXAMIC ACID 1000 MG/10 ML VIAL IVPB ONE (11:01)
[2020-01-27] MEDS: NAPH,MB-DB/K PH,MBDB POWDER PACKET PO ONE ×2 (11:19→11:33)
[2020-01-27] MEDS: NOREPINEPHRINE BITARTRATE 8,000 MCG/500 ML BAG IVPB SCH (11:24)
[2020-01-27] MEDS: VASOPRESSIN 40 UNITS in SODIUM CHLORIDE 98 ML IVPB SCH (11:25)
--- NOTE | 2020-01-27 12:12 | PN ---
Teaching Attending Note Name of Resident: Eder Medina ATTENDING PHYSICIAN STATEMENT I saw and evaluated the patient. I reviewed the resident's note and discussed the case with the resident. I agree with the resident's findings and plan as documented. SUBJECTIVE: Pt seen and examined in the ICU. GUCCI still draining sanguinous blood. Received 5 PRBCs yesterday. Remains intubated, sedated. Off pressors. Saturating well on 40% FiO2. OBJECTIVE: Vital Signs Period Temp Pulse Resp BP Sys/Conrad Pulse Ox Last 24 Hr 98.9 F-100.8 F 60-105 15-33 100-144/60-88 100-100 Intake & Output 01/24/20 01/25/20 01/26/20 01/27/20 23:59 23:59 23:59 23:59 Intake Total 80946 8004.1 2922.4 Output Total 5780 4505 4140 Balance 5320 3499.1 -1217.6 Weight 80.921 kg Gen: intubated, sedated Heart: RRR Lung: decreased breath sounds at the bases Abd: soft, nontender, dressings dry Ext: no edema CBC, BMP 01/27/20 06:00 01/27/20 06:00 Active Medications Acetaminophen (Ofirmev Injection -) 1,000 mg IVPB Q6H PRN PRN Reason: FEVER Stop: 01/27/20 21:52 Last Admin: 01/27/20 08:53 Dose: 1,000 mg Documented by: Artificial Tears (Artificial Tears) 1 drop OU Q4H PRN PRN Reason: DRY EYES Last Admin: 01/26/20 18:04 Dose: 1 drop Documented by: Chlorhexidine Gluconate (Hibiclens For Decolonization -) 1 applic TP HS CHUCK Last Admin: 01/26/20 22:00 Dose: 1 applic Documented by: Chlorhexidine Gluconate (Peridex -) 15 ml MM BID CHUCK Last Admin: 01/27/20 09:36 Dose: 15 ml Documented by: Diphenhydramine HCl (Benadryl Injection -) 12.5 mg IVPUSH ONCE PRN PRN Reason: FOR ITCHING Fentanyl (Sublimaze Injection -) 50 mcg IVPUSH [id number] PRN PRN Reason: PAIN-PACU ORDER X 4 DOSES ONLY Metronidazole (Flagyl 250mg Premixed Ivpb -) 250 mg in 50 mls @ 50 mls/hr IVPB Q8H-IV CHUCK Last Admin: 01/27/20 09:45 Dose: 50 mls/hr Documented by: Lactated Ringer's (Lactated Ringers Solution) 1,000 mls @ 125 mls/hr IV ASDIR CHUCK Last Admin: 01/26/20 22:25 Dose: 125 mls/hr Documented by: Midazolam HCl (Midazolam 100mg/100ml-0.9%Nacl) 100 mg in 100 mls @ 1 mls/hr IVPB TITR CHUCK; Protocol Last Admin: 01/26/20 20:00 Dose: 6 mg/hr, 6 mls/hr Documented by: Sodium Chloride (Normal Saline -) 1,000 mls @ 125 mls/hr IV ASDIR CHUCK Last Admin: 01/27/20 02:30 Dose: Not Given Documented by: Propofol (Diprivan -) 1,000,000 mcg in 100 mls @ 4.436 mls/hr IVPB TITR CHUCK; Protocol Last Admin: 01/27/20 09:31 Dose: 50 mcg/kg/min, 22.181 mls/hr Documented by: Norepinephrine Bitartrate (Levophed Bag) 8,000 mcg in 500 mls @ 18.75 mls/hr IVPB TITR CHUCK; Protocol Last Admin: 01/27/20 11:24 Dose: Not Given Documented by: Vasopressin 40 units/ Sodium (Chloride) 100 mls @ 5 mls/hr IVPB ASDIR CHUCK; Protocol Last Admin: 01/27/20 11:25 Dose: Not Given Documented by: Cefepime HCl 2 gm/ Dextrose 100 mls @ 100 mls/hr IVPB Q8H-IV CHUCK; Protocol Last Admin: 01/27/20 09:29 Dose: 100 mls/hr Documented by: Mupirocin (Bactroban Ointment (For Decolonization) -) 1 applic NS BID CHUCK Stop: 01/30/20 21:59 Last Admin: 01/27/20 09:29 Dose: 1 applic Documented by: Ondansetron HCl (Zofran Injection) 4 mg IVPUSH Q6H PRN PRN Reason: NAUSEA AND/OR VOMITING Promethazine HCl (Phenergan Injection -) 12.5 mg IVPUSH Q6H PRN PRN Reason: NAUSEA-FOR RESCUE AFTER 15 MIN ASSESSMENT AND PLAN: Uterine Fibroids s/p Myomectomy POD 1 Acute Blood Loss Anemia DIC Hemorrhagic Shock Thrombocytopenia - monitor CBC, coags, fibrinogen level - transfuse as needed - tranexamic acid if continues to bleed - calcium - off pressors, maintain MAP >65 - monitor GUCCI output - on empiric antibiotics - f/u cultures - if remains stable, can lighten sedation in AM to assess mental status - spontaneous breathing trials as tolerated when mental status improved - titrate Fio2 to keep SpO2 >90% - DVT prophylaxis - continue ICU monitoring critical care time spent in reviewing chart, evaluating patient and formulating plan 35 min
[2020-01-27] MEDS ORDERED: SODIUM PHOSPHATE - 0 MM in DEXTROSE 5%-WATER - 250 ML IVPB ONE (12:16)
[2020-01-27 12:26] LABS: BASO % 0.3 % (0-2.0); EOS % 0.5 % (0-4.5); HEMATOCRIT 25.9 % (32.4-45.2); HEMOGLOBIN 9.3 GM/dL (10.7-15.3); LYMPH % 16.4 % (8-40); MCH 31.4 pg (25.7-33.7); MCHC 35.8 g/dl (32.0-36.0); MEAN CELL VOLUME 87.7 fl (80-96); MEAN PLT VOLUME 7.8 fl (7.5-11.1); MONO % 4.5 % (3.8-10.2); NEUT % 78.3 % (42.8-82.8); PLATELET COUNT 140 K/MM3 (134-434); RBC 2.96 M/mm3 (3.60-5.2); WHITE BLOOD COUNT 7.2 K/mm3 (4.0-10.0)
[2020-01-27 12:34] LABS: INR 1.02 (0.83-1.09)
--- NOTE | 2020-01-27 13:48 | PN ---
Progress Note, Physician History of Present Illness: still with bleeding intubated received 5 units of blood randolph still draining - Current Medication List Current Medications: Active Medications Acetaminophen (Ofirmev Injection -) 1,000 mg IVPB Q6H PRN PRN Reason: FEVER Stop: 01/27/20 21:52 Last Admin: 01/27/20 08:53 Dose: 1,000 mg Documented by: Artificial Tears (Artificial Tears) 1 drop OU Q4H PRN PRN Reason: DRY EYES Last Admin: 01/26/20 18:04 Dose: 1 drop Documented by: Chlorhexidine Gluconate (Hibiclens For Decolonization -) 1 applic TP HS CHUCK Last Admin: 01/26/20 22:00 Dose: 1 applic Documented by: Chlorhexidine Gluconate (Peridex -) 15 ml MM BID CHUCK Last Admin: 01/27/20 09:36 Dose: 15 ml Documented by: Diphenhydramine HCl (Benadryl Injection -) 12.5 mg IVPUSH ONCE PRN PRN Reason: FOR ITCHING Fentanyl (Sublimaze Injection -) 50 mcg IVPUSH [id number] PRN PRN Reason: PAIN-PACU ORDER X 4 DOSES ONLY Metronidazole (Flagyl 250mg Premixed Ivpb -) 250 mg in 50 mls @ 50 mls/hr IVPB Q8H-IV CHUCK Last Admin: 01/27/20 09:45 Dose: 50 mls/hr Documented by: Lactated Ringer's (Lactated Ringers Solution) 1,000 mls @ 125 mls/hr IV ASDIR CHUCK Last Admin: 01/26/20 22:25 Dose: 125 mls/hr Documented by: Midazolam HCl (Midazolam 100mg/100ml-0.9%Nacl) 100 mg in 100 mls @ 1 mls/hr IVPB TITR CHUCK; Protocol Last Admin: 01/26/20 20:00 Dose: 6 mg/hr, 6 mls/hr Documented by: Propofol (Diprivan -) 1,000,000 mcg in 100 mls @ 4.436 mls/hr IVPB TITR CHUCK; Protocol Last Admin: 01/27/20 09:31 Dose: 50 mcg/kg/min, 22.181 mls/hr Documented by: Norepinephrine Bitartrate (Levophed Bag) 8,000 mcg in 500 mls @ 18.75 mls/hr IVPB TITR CHUCK; Protocol Last Admin: 01/27/20 11:24 Dose: Not Given Documented by: Vasopressin 40 units/ Sodium (Chloride) 100 mls @ 5 mls/hr IVPB ASDIR CHUCK; Protocol Last Admin: 01/27/20 11:25 Dose: Not Given Documented by: Cefepime HCl 2 gm/ Dextrose 100 mls @ 100 mls/hr IVPB Q8H-IV CHUCK; Protocol Last Admin: 01/27/20 09:29 Dose: 100 mls/hr Documented by: Sodium Phosphate 15 mm/ (Dextrose) 255 mls @ 62.5 mls/hr IVPB ONCE ONE Stop: 01/27/20 18:34 Mupirocin (Bactroban Ointment (For Decolonization) -) 1 applic NS BID [facility] Stop: 01/30/20 21:59 Last Admin: 01/27/20 09:29 Dose: 1 applic Documented by: Ondansetron HCl (Zofran Injection) 4 mg IVPUSH Q6H PRN PRN Reason: NAUSEA AND/OR VOMITING Promethazine HCl (Phenergan Injection -) 12.5 mg IVPUSH Q6H PRN PRN Reason: NAUSEA-FOR RESCUE AFTER 15 MIN - Objective Vital Signs: Vital Signs Temperature 100.6 F H 01/27/20 12:00 Pulse Rate 104 H 01/27/20 12:00 Respiratory Rate 19 01/27/20 12:00 Blood Pressure 116/76 01/27/20 12:00 O2 Sat by Pulse Oximetry (%) 100 01/27/20 12:00 Constitutional: Yes: Other Cardiovascular: Yes: S1, S2 Respiratory: Yes: Intubated, Mechanically Ventilated Gastrointestinal: Yes: Normal Bowel Sounds, Soft, Other (randolph in place) Musculoskeletal: Yes: WNL Extremities: Yes: WNL Labs: CBC, BMP 01/27/20 10:45 01/27/20 06:00 INR, PTT INR 1.02 (0.83-1.09) 01/27/20 10:45 Fibrinogen 409.0 mg/dL (238-498) 01/27/20 10:45 - ....Imaging Chest X-ray: Report Reviewed, Image Reviewed Assessment/Plan Uterine Fibroids s/p Myomectomy POD 1 Acute Blood Loss Anemia DIC Hemorrhagic Shock Thrombocytopenia plan continue iv abx hydration transfusion rest as per icu cc 40 min
--- NOTE | 2020-01-27 13:51 | PN ---
Progress Note (short form) - Note Progress Note: Anesthesia POD#2 S/P Abdominal myomectomy under GA complicated by Hemorrhagic shock and DIC. Still intubated and sedated, off pressors. VSS, no excessive bleeding. A/P Stable, can be extubated as per casing crew. Anel Salinas MD.
[2020-01-27] MEDS ORDERED: SODIUM PHOSPHATE - 15 MM in DEXTROSE 5%-WATER - 250 ML IVPB ONE (14:30)
[2020-01-27] MEDS: MIDAZOLAM IN 0.9 % SOD.CHLORID 100 MG/100 ML PLAST..BAG IVPB SCH ×2 (17:21→20:00)
[2020-01-27] MEDS: LACTATED RINGERS SOLUTION 1,000 ML IV SCH (18:12)
[2020-01-27 18:16] LABS: BASO % 0.4 % (0-2.0); EOS % 0.5 % (0-4.5); HEMATOCRIT 25.7 % (32.4-45.2); HEMOGLOBIN 9.2 GM/dL (10.7-15.3); LYMPH % 16.4 % (8-40); MCH 31.2 pg (25.7-33.7); MCHC 35.9 g/dl (32.0-36.0); MEAN PLT VOLUME 8.1 fl (7.5-11.1); MONO % 3.5 % (3.8-10.2); NEUT % 79.2 % (42.8-82.8); PLATELET COUNT 146 K/MM3 (134-434); RBC 2.96 M/mm3 (3.60-5.2); WHITE BLOOD COUNT 8.2 K/mm3 (4.0-10.0)
[2020-01-27 18:56] LABS: ALBUMIN 2.5 g/dl (3.4-5.0); BILIRUBIN,TOTAL 0.5 mg/dL (0.2-1); BLOOD UREA NITROGEN 7.2 mg/dL (7-18); CALCIUM 7.4 mg/dL (8.5-10.1); CREATININE 0.7 mg/dL (0.55-1.3); POTASSIUM 3.2 mmol/L (3.5-5.1); TOT PROT 5.1 g/dl (6.4-8.2)
--- NOTE | 2020-01-27 19:39 | PN.HO ---
Progress Note (short form) - Note Progress Note: PAtient seen and examined Bleeding decreased during the course of the day Last Vital Signs Temp Pulse Resp BP Pulse Ox 97 F L 94 H 24 H 135/83 100 01/25/20 23:45 01/26/20 06:45 01/26/20 06:45 01/26/20 06:45 01/26/20 06:45 AFVSS Cor: RSR, No murmurs, No gallops Lungs: Clear to P&A Abd: Soft, Normal bowel sounds, No organomegaly Ext:No significant edema Labs/meds: reviewed A/P 34 y/o patient s/p myomectomy, with post op. hemorrhage s/p >12 units PRBCs s/p several units monodonor platelets s/p FFP, cryo will redose tranexamic acid 1g Monitor CBC/PT/PTT/fibrinogen Discussed with COOLER WORKER /icu teams
[2020-01-27 21:34] LABS: BASO % 0.5 % (0-2.0); EOS % 0.8 % (0-4.5); HEMATOCRIT 25.3 % (32.4-45.2); HEMOGLOBIN 9.1 GM/dL (10.7-15.3); LYMPH % 17.6 % (8-40); MCH 31.2 pg (25.7-33.7); MCHC 36.1 g/dl (32.0-36.0); MEAN CELL VOLUME 86.5 fl (80-96); MEAN PLT VOLUME 7.7 fl (7.5-11.1); MONO % 3.7 % (3.8-10.2); NEUT % 77.4 % (42.8-82.8); PLATELET COUNT 143 K/MM3 (134-434); RBC 2.93 M/mm3 (3.60-5.2); RDW 14.6 % (11.6-15.6); WHITE BLOOD COUNT 8.6 K/mm3 (4.0-10.0)
[2020-01-27 21:47] LABS: INR 1.06 (0.83-1.09); PROTHROMBIN TIME (PATIENT) 12.5 SEC (9.7-13.0)
[2020-01-27 21:50] LABS: ACTIVATED PTT 24.3 SECONDS (25.2-36.5)
[2020-01-27] MEDS: CHLORHEXIDINE GLUCONATE 4% CLEANSER FOR DECOLONIZATION TP SCH (21:54)
[2020-01-27] MEDS: ARTIFICIAL TEARS (POLYVINYL ALCOHOL) OPTH DROPS OU PRN (22:00)
[2020-01-27 22:43] LABS: BLOOD UREA NITROGEN 7.4 mg/dL (7-18); CALCIUM 7.3 mg/dL (8.5-10.1); CREATININE 0.6 mg/dL (0.55-1.3); POTASSIUM 3.1 mmol/L (3.5-5.1)
--- NOTE | 2020-01-27 22:52 | PN ---
Physical Exam: SUBJECTIVE: Patient seen and examined. No overnight events. Remains intubated and sedated with propofol 50 mcg/kg/min and midazolam 6 mg/H. Received 1 PRBC, 1 platelet, & 2 FFP overnight. Off pressors. OBJECTIVE: Vital Signs Period Temp Pulse Resp BP Sys/Conrad Pulse Ox Last 24 Hr 99.1 F-100.8 F 70-105 15-33 100-139/60-87 100-100 GENERAL: intubated/sedated HEAD: Normal with no signs of trauma. PERRL, LUNGS: Breath sounds equal, clear to auscultation bilaterally, no wheezes, no crackles, no accessory muscle use. HEART: Regular rate and rhythm, S1, S2 without murmur, rub or gallop. ABDOMEN: Soft, nontender, nondistended, normoactive bowel sounds, no guarding, GUCCI drain on R side draining sanguinous fluid. surgical incision dry and non- erythematous EXTREMITIES: 2+ pulses, warm, well-perfused, no edema. Laboratory Results - last 24 hr 01/26/20 01/26/20 01/27/20 05:15 05:20 02:15 WBC RBC Hgb Hct MCV MCH MCHC RDW Plt Count MPV Absolute Neuts (auto) Neutrophils % Lymphocytes % Monocytes % Eosinophils % Basophils % Nucleated RBC % Haptoglobin 17 L PT with INR 12.30 INR 1.04 PTT (Actin FS) 24.2 L Fibrinogen D-Dimer Sodium Potassium Chloride Carbon Dioxide Anion Gap BUN Creatinine Est GFR (CKD-EPI)AfAm Est GFR (CKD-EPI)NonAf Random Glucose Calcium Phosphorus Magnesium Total Bilirubin AST ALT Alkaline Phosphatase LD Total Total Protein Albumin Blood Type O POSITIVE Antibody Screen Negative Direct Antiglob Test Negative Crossmatch See Detail 01/27/20 01/27/20 01/27/20 02:15 02:15 02:15 WBC 5.9 RBC 2.57 L Hgb 8.1 L Hct 22.5 L MCV 87.6 MCH 31.5 MCHC 35.9 RDW 14.1 Plt Count 135 D MPV 7.3 L Absolute Neuts (auto) Neutrophils % Lymphocytes % Monocytes % Eosinophils % Basophils % Nucleated RBC % Haptoglobin PT with INR INR PTT (Actin FS) Fibrinogen 356.0 D-Dimer Sodium 137 Potassium 3.4 L Chloride 105 Carbon Dioxide 27 Anion Gap 6 L BUN 7.6 Creatinine 0.5 L Est GFR (CKD-EPI)AfAm 144.31 Est GFR (CKD-EPI)NonAf 124.51 Random Glucose 139 H Calcium 7.1 L Phosphorus Magnesium Total Bilirubin 0.4 AST 36 ALT 17 Alkaline Phosphatase 39 L LD Total Total Protein 5.1 L Albumin 2.6 L Blood Type Antibody Screen Direct Antiglob Test Crossmatch 01/27/20 01/27/20 01/27/20 06:00 06:00 06:00 WBC 6.8 RBC 2.98 L Hgb 9.4 L Hct 25.8 L MCV 86.5 MCH 31.5 MCHC 36.4 H RDW 13.9 Plt Count 139 MPV 7.6 Absolute Neuts (auto) 5.2 Neutrophils % 75.5 Lymphocytes % 17.4 Monocytes % 6.5 Eosinophils % 0.3 D Basophils % 0.3 D Nucleated RBC % 0 Haptoglobin PT with INR 11.40 INR 0.97 PTT (Actin FS) 25.1 L Fibrinogen D-Dimer Sodium 145 Potassium 3.5 Chloride 113 H Carbon Dioxide 27 Anion Gap 5 L BUN 7.1 Creatinine 0.6 Est GFR (CKD-EPI)AfAm 135.91 Est GFR (CKD-EPI)NonAf 117.26 Random Glucose 105 Calcium 7.1 L Phosphorus 1.4 L Magnesium 2.3 Total Bilirubin 0.7 AST 43 H ALT 19 Alkaline Phosphatase 37 L LD Total 453 H Total Protein 5.2 L Albumin 2.6 L Blood Type Antibody Screen Direct Antiglob Test Crossmatch 01/27/20 01/27/20 01/27/20 06:00 06:00 10:45 WBC 7.2 RBC 2.96 L Hgb 9.3 L Hct 25.9 L MCV 87.7 MCH 31.4 MCHC 35.8 RDW 14.0 Plt Count 140 MPV 7.8 Absolute Neuts (auto) 5.7 Neutrophils % 78.3 Lymphocytes % 16.4 Monocytes % 4.5 Eosinophils % 0.5 Basophils % 0.3 Nucleated RBC % 0 Haptoglobin PT with INR INR PTT (Actin FS) Fibrinogen D-Dimer 77798 H Sodium Potassium Chloride Carbon Dioxide Anion Gap BUN Creatinine Est GFR (CKD-EPI)AfAm Est GFR (CKD-EPI)NonAf Random Glucose Calcium Phosphorus Magnesium Total Bilirubin AST ALT Alkaline Phosphatase LD Total Total Protein Albumin Blood Type Antibody Screen Direct Antiglob Test Negative Crossmatch 01/27/20 01/27/20 01/27/20 10:45 10:45 10:45 WBC RBC Hgb Hct MCV MCH MCHC RDW Plt Count MPV Absolute Neuts (auto) Neutrophils % Lymphocytes % Monocytes % Eosinophils % Basophils % Nucleated RBC % Haptoglobin PT with INR 12.00 INR 1.02 PTT (Actin FS) 24.0 L Fibrinogen 409.0 D-Dimer 75221 H Sodium Potassium Chloride Carbon Dioxide Anion Gap BUN Creatinine Est GFR (CKD-EPI)AfAm Est GFR (CKD-EPI)NonAf Random Glucose Calcium Phosphorus Magnesium Total Bilirubin AST ALT Alkaline Phosphatase LD Total Total Protein Albumin Blood Type Antibody Screen Direct Antiglob Test Crossmatch 01/27/20 01/27/20 01/27/20 17:00 17:00 21:00 WBC 8.2 8.6 RBC 2.96 L 2.93 L Hgb 9.2 L 9.1 L Hct 25.7 L 25.3 L MCV 87.0 86.5 MCH 31.2 31.2 MCHC 35.9 36.1 H RDW 14.0 14.6 Plt Count 146 143 MPV 8.1 7.7 Absolute Neuts (auto) 6.5 6.6 Neutrophils % 79.2 77.4 Lymphocytes % 16.4 17.6 Monocytes % 3.5 L 3.7 L Eosinophils % 0.5 0.8 Basophils % 0.4 0.5 Nucleated RBC % 0 0 Haptoglobin PT with INR INR PTT (Actin FS) Fibrinogen D-Dimer Sodium 150 H Potassium 3.2 L Chloride 115 H Carbon Dioxide 30 Anion Gap 5 L BUN 7.2 Creatinine 0.7 Est GFR (CKD-EPI)AfAm 129.19 Est GFR (CKD-EPI)NonAf 111.47 Random Glucose 103 Calcium 7.4 L Phosphorus Magnesium Total Bilirubin 0.5 AST 41 H ALT 18 Alkaline Phosphatase 39 L LD Total Total Protein 5.1 L Albumin 2.5 L Blood Type Antibody Screen Direct Antiglob Test Crossmatch 01/27/20 01/27/20 21:00 21:00 WBC RBC Hgb Hct MCV MCH MCHC RDW Plt Count MPV Absolute Neuts (auto) Neutrophils % Lymphocytes % Monocytes % Eosinophils % Basophils % Nucleated RBC % Haptoglobin PT with INR 12.50 INR 1.06 PTT (Actin FS) 24.3 L Fibrinogen 396.0 D-Dimer Sodium Potassium Chloride Carbon Dioxide Anion Gap BUN Creatinine Est GFR (CKD-EPI)AfAm Est GFR (CKD-EPI)NonAf Random Glucose Calcium Phosphorus Magnesium Total Bilirubin AST ALT Alkaline Phosphatase LD Total Total Protein Albumin Blood Type Antibody Screen Direct Antiglob Test Crossmatch Active Medications Generic Name Dose Route Start Last Admin Trade Name Freq PRN Reason Stop Dose Admin Artificial Tears 1 drop 01/26/20 17:24 01/26/20 18:04 Artificial Tears OU 1 drop Q4H PRN Administration DRY EYES Chlorhexidine Gluconate 1 applic 01/25/20 22:00 01/27/20 21:54 Hibiclens For Decolonization - TP 1 applic HS CHUCK Administration Chlorhexidine Gluconate 15 ml 01/26/20 22:00 01/27/20 21:54 Peridex - MM 15 ml BID CHUCK Administration Diphenhydramine HCl 12.5 mg 01/25/20 23:18 Benadryl Injection - IVPUSH ONCE PRN FOR ITCHING Fentanyl 50 mcg 01/25/20 17:38 Sublimaze Injection - IVPUSH [id number] PRN PAIN-PACU ORDER X 4 DOSES ONLY Metronidazole 250 mg in 50 mls @ 50 mls/hr 01/25/20 23:00 01/27/20 17:26 Flagyl 250mg Premixed Ivpb - IVPB 50 mls/hr Q8H-IV CHUCK Administration Lactated Ringer's 1,000 mls @ 125 mls/hr 01/25/20 17:45 01/27/20 18:12 Lactated Ringers Solution IV 125 mls/hr ASDIR CHUCK Administration Midazolam HCl 100 mg in 100 mls @ 1 mls/hr 01/25/20 19:30 01/27/20 20:00 Midazolam 100mg/100ml-0.9%Nacl IVPB 6 mg/hr TITR CHUCK 6 mls/hr Administration Protocol 1 MG/HR Propofol 1,000,000 mcg in 100 mls @ 4.436 mls/hr 01/25/20 21:45 01/27/20 21:54 Diprivan - IVPB 50 mcg/kg/min TITR CHUCK 22.181 mls/hr Administration Protocol 10 MCG/KG/MIN Norepinephrine Bitartrate 8,000 mcg in 500 mls @ 18.75 mls/hr 01/26/20 00:30 01/27/20 11:24 Levophed Bag IVPB Not Given TITR CHUCK Protocol 5 MCG/MIN Vasopressin 40 units/ Sodium 100 mls @ 5 mls/hr 01/26/20 02:00 01/27/20 11:25 Chloride IVPB Not Given ASDIR CHUCK Protocol 2 UNITS/HR Cefepime HCl 2 gm/ Dextrose 100 mls @ 100 mls/hr 01/26/20 18:00 01/27/20 17:2 6 IVPB 100 mls/hr Q8H-IV CHUCK Administration Protocol Mupirocin 1 applic 01/25/20 22:00 01/27/20 21:54 Bactroban Ointment (For Decolonization) - NS 01/30/20 21:59 1 applic BID CHUCK Administration Ondansetron HCl 4 mg 01/25/20 17:38 Zofran Injection IVPUSH Q6H PRN NAUSEA AND/OR VOMITING Promethazine HCl 12.5 mg 01/25/20 17:38 Phenergan Injection - IVPUSH Q6H PRN NAUSEA-FOR RESCUE AFTER 15 MIN ASSESSMENT/PLAN: 34 F with no Signficant PMH presents to hospital for myomectomy 2/2 menorrhagia. Admitted to ICU for DIC and hemorrhagic shock. #Neuro -Intubated and sedated with propofol 50 mcg/kg/min and midazolam 6 mg/H. AOX 3 prior to intubation - no neurologic issues at this time #Pulm - intubated and sedated with propofol 50 mcg/kg/min and midazolam 6 mg/H. - no acute pulm pathology at this time -CXR: progressive congestive changes with new atelectasis/infiltrate with fluid at Left base -Rate 15, TV 352, FIO2 40%, PEEP 5, Pplat 22 -maintain O2sat >90% #Cardio #hemorrhagic shock - off pressors -continue with LR @125 ml/hr - maintaining MAP >65 #Heme #DIC -1 PRBC, 1 platelet, & 2 FFP overnight, making it total of 3 blood, 5 FFP, 2 Cyro, and 2 platelets since yesterday to today in the morning. -fibrinogenWNL (396), [place] [address]. Continue to trend -Hgb/Hct: 9.1/25.3 -Keep hgb >8, transfuse PLTs if < 80K, Fibrinogen < 150 give FFP, if < 100 give Cryo. -monitor K+ because giving multiple blood products -continue with LR @125 ml/hr -if patient worsens, transfer to [facility]. team already spoke to their chief of c ritical care, Dr. Ez Henry #ID -febrile, T max 100.8 -ID consult appreciated. continue with metronidazole 250 mg Q8H & cefepime 2 gm IVPB Q8H -f/u cultures #Renal BUN/Cr stable no acute issues arteaga in place 7350 ml urine. Patientw as given 20 lasix IV push GI -Continue protonix 40mg QD Endocrine no acute issues FEN LR @125 ml/hr monitor lytes. repleted Phos with sodium Phos IV NPO #DVT PPX -continue holding chemical ppx in setting of DIC -c/w SCD's #Lines Right radial A-line (01/24) arteaga (01/24) Right IJ central line (01/24) ETT (01/24) GUCCI drain (01/24) #DISPO maintain ICU Visit type - Emergency Visit Emergency Visit: Yes ED Registration Date: 01/25/20 Care time: The patient presented to the Emergency Department on the above date and was hospitalized for further evaluation of their emergent condition. - New Patient This patient is new to me today: No - Critical Care Critical Care patient: No ATTENDING PHYSICIAN STATEMENT I saw and evaluated the patient. I reviewed the resident's note and discussed the case with the resident. I agree with the resident's findings and plan as documented. SUBJECTIVE: OBJECTIVE: ASSESSMENT AND PLAN:
[2020-01-27] MEDS ORDERED: PANTOPRAZOLE SODIUM 40 MG VIAL IVPUSH ONE (22:57)
[2020-01-28] MEDS: CEFEPIME 2 GM in DEXTROSE 5%-WATER 100 ML IVPB SCH ×3 (02:00→17:40)
[2020-01-28] MEDS: KCL 10 MEQ IVPB 10 MEQ/100 ML INFUS.BAG IVPB SCH ×3 (03:00→05:00)
[2020-01-28] MEDS: NOREPINEPHRINE BITARTRATE 8,000 MCG/500 ML BAG IVPB SCH (03:08)
[2020-01-28] MEDS: VASOPRESSIN 40 UNITS in SODIUM CHLORIDE 98 ML IVPB SCH (03:09)
[2020-01-28 06:05] LABS: ARTERIAL BLD GAS O2 SATURATION 98.8 mmHg (95-98); ARTERIAL BLOOD GAS BASE EXCESS 0.4 mmol/L (-2-2); ARTERIAL BLOOD GAS PO2 137.4 mmHg (80-100)
[2020-01-28] MEDS: ARTIFICIAL TEARS (POLYVINYL ALCOHOL) OPTH DROPS OU PRN (06:17)
[2020-01-28 06:25] LABS: ALLENS TEST POSITIVE
[2020-01-28 06:26] LABS: VENT MODE A/C; VENT RATE 15
[2020-01-28 07:21] LABS: BASO % 0.4 % (0-2.0); EOS % 1.1 % (0-4.5); HEMATOCRIT 25.7 % (32.4-45.2); HEMOGLOBIN 9.1 GM/dL (10.7-15.3); LYMPH % 15.7 % (8-40); MCH 31.1 pg (25.7-33.7); MCHC 35.3 g/dl (32.0-36.0); MEAN CELL VOLUME 88.1 fl (80-96); MEAN PLT VOLUME 8.2 fl (7.5-11.1); MONO % 3.9 % (3.8-10.2); NEUT % 78.9 % (42.8-82.8); PLATELET COUNT 141 K/MM3 (134-434); RBC 2.92 M/mm3 (3.60-5.2); RDW 14.2 % (11.6-15.6); WHITE BLOOD COUNT 8.7 K/mm3 (4.0-10.0)
[2020-01-28] MEDS ORDERED: ACETAMINOPHEN 1000 MG/100 ML VIAL (NON FORMULARY) IVPB PRN (07:34)
[2020-01-28 07:38] LABS: INR 0.99 (0.83-1.09); PROTHROMBIN TIME (PATIENT) 11.7 SEC (9.7-13.0)
[2020-01-28 07:40] LABS: ACTIVATED PTT 24.1 SECONDS (25.2-36.5)
[2020-01-28 08:08] LABS: ALBUMIN 2.5 g/dl (3.4-5.0); BILIRUBIN,TOTAL 0.4 mg/dL (0.2-1); BLOOD UREA NITROGEN 6.7 mg/dL (7-18); CALCIUM 7.3 mg/dL (8.5-10.1); CREATININE 0.5 mg/dL (0.55-1.3); MAGNESIUM 2.2 mg/dL (1.8-2.4); PHOSPHOROUS 1.7 mg/dL (2.5-4.9); POTASSIUM 3.3 mmol/L (3.5-5.1); TOT PROT 5.2 g/dl (6.4-8.2)
--- NOTE | 2020-01-28 08:08 | PN ---
Progress Note (short form) - Note Progress Note: GRADUATE ENGINEER SURGERY POD #3 s/p open abdominal myomectomy; taken back to OR secondary to postoperative hemorrhage s/p exploration; s/p uterine artery embolization in IR Remains intubated/sedated. Remains of pressors and BP stable. No events overnight per RN. Per HemeOnc note, admistered a second dose of TXA 1 gm. Per Residnets note, received 1 pRBC, 1 PLT & 2 FFP overnight. To date, she has received the following blood products: PACU after 1st surgery: 2 pRBCs Intraop (Exploration): 3 pRBCs, 2 FFP, 1 PLTs, 1 Cryo PACU after 2nd surgery: 2 pRBCs, 1 FFP ICU: 9 pRBCs, 4 PLTs 7 FFP, 2 Cryo Last Vital Signs Temp Pulse Resp BP Pulse Ox 100.2 F H 80 20 134/92 100 01/28/20 06:00 01/28/20 06:00 01/28/20 07:24 01/28/20 06:00 01/28/20 08:03 CBC 01/28/20 06:00 INR, PTT INR 0.99 (0.83-1.09) 01/28/20 06:00 Fibrinogen 396.0 mg/dL (238-498) 01/27/20 21:00 Blood Type Blood Type O POSITIVE 01/26/20 05:20 24 Hour Output 01/27/20 01/27/20 01/27/20 01/27/20 01/27/20 01/27/20 01/27/20 01/27/20 01/27/20 01/27/20 01/28/20 01/28/20 01/28/20 01/28/20 06:17 08:15 10:00 12:00 14:00 16:00 18:00 20:00 22:00 23:00 0:00 02:00 04:05 06:00 GUCCI 80 90 60 20 20 20 20 15 10 80 10 20 25 15 Arteaga 300 1,000 650 1,750 800 300 250 --- --- --- 400 --- --- 800 PE Gen: intubated/sedated Resp: vented CV: RRR Abd: soft, full, hypoactive bs in all quadrants, dressing c/d/i, incision intact with steri strips in place, no oozing noted, rlq with GUCCI (bloody) : arteaga (clear; uop > 30cc/hr) Ext: + edema ue/les A/P: 34 y/o F w/ PMHx leiomyomas/menorrhagia, admitted for elective open abdominal myomectomy on 01/24, complicated by postoperative hemorrhage s/p exploration, s/p uterine artery embolization in IR 01/24, labs c/w DIC, Hemorrhagic Shock, Thrombocytopenia. Improving. -vent care per Pulm and Respiratory Team; wean to extubate per ICU -continue to monitor CBC, Coags, Fibrinogen -monitor/record GUCCI output -continue empiric antibiotics -Keep arteaga in place, Strict I&Os -DVT prophylaxis with SCDS, no chemical prophylaxis -Keep hgb >8, transfuse PLTs if < 50K low threshold, Fibrinogen 100-150 give FFP, if < 100 give Cryo -Hemeonc consult appreciated -continue ICU monitoring -possible repeat embolization per Dr Dominguez Above plan discussed with Dr. Dominguez and agrees. Problem List - Problems (1) Hemorrhagic shock Code(s): R57.8 - OTHER SHOCK (2) DIC (disseminated intravascular coagulation) Code(s): D65 - DISSEMINATED INTRAVASCULAR COAGULATION (3) Menorrhagia Code(s): N92.0 - EXCESSIVE AND FREQUENT MENSTRUATION WITH REGULAR CYCLE (4) S/P myomectomy Code(s): Z98.890 - OTHER SPECIFIED POSTPROCEDURAL STATES
[2020-01-28] MEDS ORDERED: NAPH,MB-DB/K PH,MBDB POWDER PACKET PO ONE (08:17)
[2020-01-28] MEDS ORDERED: FUROSEMIDE 40 MG/4 ML INJECTABLE VIAL ONE (09:35)
[2020-01-28] MEDS ORDERED: PT OWN MED DRAWER 7, Y5N ONE ×4 (09:36→15:16)
[2020-01-28] MEDS: MUPIROCIN 2% TOPICAL OINTMENT FOR DECOLONIZATION NS SCH ×2 (09:39→22:43)
[2020-01-28] MEDS: CHLORHEXIDINE GLUCONATE 0.12% 15ML CUP MM SCH ×2 (09:40→22:43)
[2020-01-28 10:37] LABS: N-TERMINAL BNP 502.1 pg/ml (5-125)
--- NOTE | 2020-01-28 10:50 | OP ---
DATE OF OPERATION: 01/25/2020 PREOPERATIVE DIAGNOSIS: Postoperative hemorrhage. POSTOPERATIVE DIAGNOSES: Postoperative hemorrhage and serosal tear of the small bowel. PROCEDURE: Repair of small-bowel serosal tear. SURGEON: Tim Franks MD [employer] PROFESSOR: Penelope Luna PA-C ANESTHESIA: General. OPERATIVE FINDINGS: An intraoperative general surgical consult was requested for this patient who was taken back to the operating room for postoperative hemorrhage after abdominal myomectomy. At the time of surgery, I was asked to evaluate a small-bowel serosal tear which was made on re-entering the abdomen for emergent exploration for postoperative hemorrhage. There was a 2-cm small-bowel serosal tear. The rest of the findings were unremarkable and as per the operating smelting engineer. DESCRIPTION OF PROCEDURE: With the patient already under general anesthesia and the previous incision open, the area of the small-bowel serosal tear was identified, and using 3-0 silk, multiple interrupted Lembert sutures were placed. There was no other evidence of injury in the adjacent small bowel proximally and distally, and then, the remainder of the procedure was turned over to the primary operating smelting engineer. ESTIMATED BLOOD LOSS: 0. SPECIMENS: None. I, Tim Franks, was physically present in the operating room from the time I was called for the intraoperative consultation until the completion of the repair of the small-bowel serosal tear, and the rest of the procedure was carried out by the primary operating smelting engineer Tim Franks MD /[id number] MTDD
[2020-01-28] MEDS ORDERED: FUROSEMIDE 40 MG/4 ML INJECTABLE VIAL IVPUSH ONE (11:55)
[2020-01-28] MEDS ORDERED: KCL 10 MEQ IVPB 10 MEQ/100 ML INFUS.BAG IVPB SCH (12:00)
--- NOTE | 2020-01-28 12:44 | PN ---
Teaching Attending Note Name of Resident: Scott Thomas ATTENDING PHYSICIAN STATEMENT I saw and evaluated the patient. I reviewed the resident's note and discussed the case with the resident. I agree with the resident's findings and plan as documented. SUBJECTIVE: Pt seen and examined in the ICU. GUCCI with less output. H/H has been stable. Off pressors. Arousable off sedation, placed on CPAP/PS with good respiratory effort and RSBI so subsequently extubated during rounds. OBJECTIVE: Vital Signs Period Temp Pulse Resp BP Sys/Conrad Pulse Ox Last 24 Hr 99.2 F-100.4 F 80-103 15-27 111-137/68-92 100-100 Intake & Output 01/25/20 01/26/20 01/27/20 01/28/20 23:59 23:59 23:59 23:59 Intake Total 15713 8004.1 4394.4 560 Output Total 5780 4505 8125 3655 Balance 5320 3499.1 -3730.6 -3095 Weight 80.921 kg Gen: intubated, sedated Heart: RRR Lung: decreased breath sounds at the bases Abd: soft, nontender, dressings dry Ext: no edema CBC, BMP 01/28/20 06:00 01/28/20 06:00 Active Medications Acetaminophen (Ofirmev Injection -) 1,000 mg IVPB Q6H PRN PRN Reason: FEVER Stop: 01/29/20 07:34 Artificial Tears (Artificial Tears) 1 drop OU Q4H PRN PRN Reason: DRY EYES Last Admin: 01/28/20 06:17 Dose: 1 drop Documented by: Chlorhexidine Gluconate (Hibiclens For Decolonization -) 1 applic TP HS [facility] Last Admin: 01/27/20 21:54 Dose: 1 applic Documented by: Chlorhexidine Gluconate (Peridex -) 15 ml MM BID CHUCK Last Admin: 01/28/20 09:40 Dose: 15 ml Documented by: Diphenhydramine HCl (Benadryl Injection -) 12.5 mg IVPUSH ONCE PRN PRN Reason: FOR ITCHING Fentanyl (Sublimaze Injection -) 50 mcg IVPUSH [id number] PRN PRN Reason: PAIN-PACU ORDER X 4 DOSES ONLY Metronidazole (Flagyl 250mg Premixed Ivpb -) 250 mg in 50 mls @ 50 mls/hr IVPB Q8H-IV CHUCK Last Admin: 01/28/20 10:35 Dose: 50 mls/hr Documented by: Midazolam HCl (Midazolam 100mg/100ml-0.9%Nacl) 100 mg in 100 mls @ 1 mls/hr IVPB TITR CHUCK; Protocol Last Admin: 01/27/20 20:00 Dose: 6 mg/hr, 6 mls/hr Documented by: Propofol (Diprivan -) 1,000,000 mcg in 100 mls @ 4.436 mls/hr IVPB TITR CHUCK; Protocol Last Admin: 01/27/20 21:54 Dose: 50 mcg/kg/min, 22.181 mls/hr Documented by: Norepinephrine Bitartrate (Levophed Bag) 8,000 mcg in 500 mls @ 18.75 mls/hr IVPB TITR CHUCK; Protocol Last Admin: 01/28/20 03:08 Dose: Not Given Documented by: Vasopressin 40 units/ Sodium (Chloride) 100 mls @ 5 mls/hr IVPB ASDIR CHUCK; Protocol Last Admin: 01/28/20 03:09 Dose: Not Given Documented by: Cefepime HCl 2 gm/ Dextrose 100 mls @ 100 mls/hr IVPB Q8H-IV CHUCK; Protocol Last Admin: 01/28/20 09:40 Dose: 100 mls/hr Documented by: Potassium Phosphate 30 mm/ (Sodium Chloride) 260 mls @ 62.5 mls/hr IVPB ONCE ONE Stop: 01/28/20 17:09 Mupirocin (Bactroban Ointment (For Decolonization) -) 1 applic NS BID [facility] Stop: 01/30/20 21:59 Last Admin: 01/28/20 09:39 Dose: 1 applic Documented by: Ondansetron HCl (Zofran Injection) 4 mg IVPUSH Q6H PRN PRN Reason: NAUSEA AND/OR VOMITING Promethazine HCl (Phenergan Injection -) 12.5 mg IVPUSH Q6H PRN PRN Reason: NAUSEA-FOR RESCUE AFTER 15 MIN ASSESSMENT AND PLAN: Uterine Fibroids s/p Myomectomy Acute Blood Loss Anemia DIC Hemorrhagic Shock resolving Thrombocytopenia - pt extubated - monitor CBC, coags, fibrinogen level - transfuse as needed - monitor calcium - off pressors, maintain MAP >65 - monitor GUCCI output - on empiric antibiotics - f/u cultures - titrate Fio2 to keep SpO2 >90% - DVT prophylaxis - continue ICU monitoring critical care time spent in reviewing chart, evaluating patient and formulating plan 35 min
[2020-01-28] MEDS ORDERED: POTASSIUM PHOSPHATE 30 MM in SODIUM CHLORIDE 250 ML IVPB ONE (13:00)
[2020-01-28 13:39] VITALS: BMI 29.6
--- NOTE | 2020-01-28 14:01 | PN ---
Progress Note, Physician History of Present Illness: improving off of pressors extubated stephanie with decreasing drain has been spiking low grade fevers - Current Medication List Current Medications: Active Medications Acetaminophen (Ofirmev Injection -) 1,000 mg IVPB Q6H PRN PRN Reason: FEVER Stop: 01/29/20 07:34 Artificial Tears (Artificial Tears) 1 drop OU Q4H PRN PRN Reason: DRY EYES Last Admin: 01/28/20 06:17 Dose: 1 drop Documented by: Chlorhexidine Gluconate (Hibiclens For Decolonization -) 1 applic TP HS CHUCK Last Admin: 01/27/20 21:54 Dose: 1 applic Documented by: Chlorhexidine Gluconate (Peridex -) 15 ml MM BID CHUCK Last Admin: 01/28/20 09:40 Dose: 15 ml Documented by: Diphenhydramine HCl (Benadryl Injection -) 12.5 mg IVPUSH ONCE PRN PRN Reason: FOR ITCHING Fentanyl (Sublimaze Injection -) 50 mcg IVPUSH [id number] PRN PRN Reason: PAIN-PACU ORDER X 4 DOSES ONLY Metronidazole (Flagyl 250mg Premixed Ivpb -) 250 mg in 50 mls @ 50 mls/hr IVPB Q8H-IV CHUCK Last Admin: 01/28/20 10:35 Dose: 50 mls/hr Documented by: Midazolam HCl (Midazolam 100mg/100ml-0.9%Nacl) 100 mg in 100 mls @ 1 mls/hr IVPB TITR CHUCK; Protocol Last Admin: 01/27/20 20:00 Dose: 6 mg/hr, 6 mls/hr Documented by: Propofol (Diprivan -) 1,000,000 mcg in 100 mls @ 4.436 mls/hr IVPB TITR CHUCK; Protocol Last Admin: 01/27/20 21:54 Dose: 50 mcg/kg/min, 22.181 mls/hr Documented by: Norepinephrine Bitartrate (Levophed Bag) 8,000 mcg in 500 mls @ 18.75 mls/hr IVPB TITR CHUCK; Protocol Last Admin: 01/28/20 03:08 Dose: Not Given Documented by: Vasopressin 40 units/ Sodium (Chloride) 100 mls @ 5 mls/hr IVPB ASDIR CHUCK; Protocol Last Admin: 01/28/20 03:09 Dose: Not Given Documented by: Cefepime HCl 2 gm/ Dextrose 100 mls @ 100 mls/hr IVPB Q8H-IV CHUCK; Protocol Last Admin: 01/28/20 09:40 Dose: 100 mls/hr Documented by: Potassium Phosphate 30 mm/ (Sodium Chloride) 260 mls @ 62.5 mls/hr IVPB ONCE ONE Stop: 01/28/20 17:09 Mupirocin (Bactroban Ointment (For Decolonization) -) 1 applic NS BID CHUCK Stop: 01/30/20 21:59 Last Admin: 01/28/20 09:39 Dose: 1 applic Documented by: Ondansetron HCl (Zofran Injection) 4 mg IVPUSH Q6H PRN PRN Reason: NAUSEA AND/OR VOMITING Promethazine HCl (Phenergan Injection -) 12.5 mg IVPUSH Q6H PRN PRN Reason: NAUSEA-FOR RESCUE AFTER 15 MIN - Objective Vital Signs: Vital Signs Temperature 99.9 F H 01/28/20 10:00 Pulse Rate 83 01/28/20 12:51 Respiratory Rate 27 H 01/28/20 10:00 Blood Pressure 127/84 01/28/20 12:51 O2 Sat by Pulse Oximetry (%) 100 01/28/20 12:51 Constitutional: Yes: Calm, Mild Distress Eyes: Yes: Conjunctiva Clear Neck: Yes: Supple, Trachea Midline Cardiovascular: Yes: Regular Rate and Rhythm Respiratory: Yes: Regular, CTA Bilaterally Genitourinary: Yes: [place] Present Musculoskeletal: Yes: WNL Extremities: Yes: WNL Neurological: Yes: Alert Labs: CBC, BMP 01/28/20 06:00 01/28/20 06:00 INR, PTT INR 0.99 (0.83-1.09) 01/28/20 06:00 Fibrinogen 414.0 mg/dL (238-498) 01/28/20 06:00 - ....Imaging Chest X-ray: Report Reviewed, Image Reviewed Assessment/Plan Uterine Fibroids s/p Myomectomy POD 1 Acute Blood Loss Anemia DIC Hemorrhagic Shock Thrombocytopenia plan continue iv abx hydration transfusion rest as per icu monitor fevers await for cx reports close watch will see how fevers behave cc 40 min
--- NOTE | 2020-01-28 14:14 | PN.HO ---
Progress Note (short form) - Note Progress Note: Patient seen this am s/p extubation. She is awake and able to answer yes or no to questions but is still lethargic from sedation. Overnight she did not receive any blood products and her counts have been stable. 10cc/hr from her drain . Last dose of TXA on 01/26 at ~11am A/P 34F s/p myomectomy c/b post op hemorrhage requiring massive transfusion protocol and tranexamic acid with uterine artery emoblization by IR with concern for DIC -continue with cbc, coags, fibrinogen, LDH, haptoglobin q12 hrs for now -transfuse for Hb <8, Plts <50k; give cryo if Fibrinogen <150 -hold off on any further TXA for now as patient's counts are stable and no signs of excessive bleeding
[2020-01-28] MEDS ORDERED: MULTIVIT-MINERALS ORAL LIQUID PO SCH (14:30)
--- NOTE | 2020-01-28 19:01 | PN ---
Physical Exam: SUBJECTIVE: Patient seen and examined Patient was seen and examined at bedside. Patient noted to have good tidal volumes while on CPAP and mentating well enough off sedation. Patient was subsequently extubated. Currently states she is doing well. OBJECTIVE: Vital Signs Period Temp Pulse Resp BP Sys/Conrad Pulse Ox Last 24 Hr 99.2 F-100.4 F 80-96 15-27 111-137/68-92 100-100 GENERAL: The patient is awake, alert, and fully oriented, in no acute distress. HEAD: Normal with no signs of trauma. EYES: PERRL, extraocular movements intact, sclera anicteric, conjunctiva clear. No ptosis. ENT: nares patent, oropharynx clear without exudates, moist mucous membranes. ET tube and NG tube removed NECK: Trachea midline, full range of motion, supple. LUNGS: Breath sounds equal, clear to auscultation bilaterally, no wheezes, no crackles, no accessory muscle use. HEART: Regular rate and rhythm, S1, S2 without murmur, rub or gallop. ABDOMEN: Soft, nontender, nondistended, normoactive bowel sounds, no guarding, no rebound, no hepatosplenomegaly, no masses. EXTREMITIES: 2+ pulses, warm, well-perfused, no edema. NEUROLOGICAL: Unable to assess CN2-12 at this time and unable to assess speech, gait not observed. PSYCH: Normal mood, normal affect. SKIN: Warm, dry, normal turgor, no rashes or lesions noted Laboratory Results - last 24 hr 01/25/20 01/25/20 01/27/20 06:15 18:15 06:00 WBC RBC Hgb Hct MCV MCH MCHC RDW Plt Count MPV Absolute Neuts (auto) Neutrophils % Lymphocytes % Monocytes % Eosinophils % Basophils % Nucleated RBC % Haptoglobin 63 PT with INR INR PTT (Actin FS) Fibrinogen D-Dimer Protein S Activity 27 L Anticoagulation Therapy Puncture Site Patient Temperature ABG pH ABG pCO2 ABG pO2 ABG HCO3 ABG O2 Sat (Measured) ABG O2 Content ABG Base Excess Sudhir Test Patient On Oxygen O2 Delivery Device Oxygen Flow Rate Vent Mode Vent Rate Mechanical Rate PEEP Pressure Support Vent Sodium Potassium Chloride Carbon Dioxide Anion Gap BUN Creatinine Est GFR (CKD-EPI)AfAm Est GFR (CKD-EPI)NonAf Random Glucose Calcium Phosphorus Magnesium Total Bilirubin AST ALT Alkaline Phosphatase B-Natriuretic Peptide Total Protein Albumin Blood Type O POSITIVE Antibody Screen Negative Crossmatch See Detail Crossmatch IS Only See Detail 01/27/20 01/27/20 01/27/20 21:00 21:00 21:00 WBC 8.6 RBC 2.93 L Hgb 9.1 L Hct 25.3 L MCV 86.5 MCH 31.2 MCHC 36.1 H RDW 14.6 Plt Count 143 MPV 7.7 Absolute Neuts (auto) 6.6 Neutrophils % 77.4 Lymphocytes % 17.6 Monocytes % 3.7 L Eosinophils % 0.8 Basophils % 0.5 Nucleated RBC % 0 Haptoglobin PT with INR 12.50 INR 1.06 PTT (Actin FS) 24.3 L Fibrinogen 396.0 D-Dimer Protein S Activity Anticoagulation Therapy Puncture Site Patient Temperature ABG pH ABG pCO2 ABG pO2 ABG HCO3 ABG O2 Sat (Measured) ABG O2 Content ABG Base Excess Sudhir Test Patient On Oxygen O2 Delivery Device Oxygen Flow Rate Vent Mode Vent Rate Mechanical Rate PEEP Pressure Support Vent Sodium Potassium Chloride Carbon Dioxide Anion Gap BUN Creatinine Est GFR (CKD-EPI)AfAm Est GFR (CKD-EPI)NonAf Random Glucose Calcium Phosphorus Magnesium Total Bilirubin AST ALT Alkaline Phosphatase B-Natriuretic Peptide Total Protein Albumin Blood Type Antibody Screen Crossmatch Crossmatch IS Only 01/27/20 01/28/20 01/28/20 21:00 05:35 06:00 WBC RBC Hgb Hct MCV MCH MCHC RDW Plt Count MPV Absolute Neuts (auto) Neutrophils % Lymphocytes % Monocytes % Eosinophils % Basophils % Nucleated RBC % Haptoglobin PT with INR INR PTT (Actin FS) Fibrinogen D-Dimer 9411 H Protein S Activity Anticoagulation Therapy No Result Required. Puncture Site Arterial line Patient Temperature No Result Required. ABG pH 7.440 ABG pCO2 36.50 ABG pO2 137.4 H ABG HCO3 24.2 ABG O2 Sat (Measured) 98.8 H ABG O2 Content No Result Required. ABG Base Excess 0.4 Sudhir Test Positive Patient On Oxygen Yes O2 Delivery Device Yes Oxygen Flow Rate 40% Vent Mode A/c Vent Rate 15 Mechanical Rate Vent PEEP 5.0 Pressure Support Vent 400 Sodium 150 H Potassium 3.1 L Chloride 116 H Carbon Dioxide 30 Anion Gap 4 L BUN 7.4 Creatinine 0.6 Est GFR (CKD-EPI)AfAm 135.91 Est GFR (CKD-EPI)NonAf 117.26 Random Glucose 94 Calcium 7.3 L Phosphorus Magnesium Total Bilirubin AST ALT Alkaline Phosphatase B-Natriuretic Peptide Total Protein Albumin Blood Type Antibody Screen Crossmatch Crossmatch IS Only 01/28/20 01/28/20 01/28/20 06:00 06:00 06:00 WBC 8.7 RBC 2.92 L Hgb 9.1 L Hct 25.7 L MCV 88.1 MCH 31.1 MCHC 35.3 RDW 14.2 Plt Count 141 MPV 8.2 Absolute Neuts (auto) 6.9 Neutrophils % 78.9 Lymphocytes % 15.7 Monocytes % 3.9 Eosinophils % 1.1 Basophils % 0.4 Nucleated RBC % 1 H Haptoglobin PT with INR 11.70 INR 0.99 PTT (Actin FS) 24.1 L Fibrinogen 414.0 D-Dimer Protein S Activity Anticoagulation Therapy Puncture Site Patient Temperature ABG pH ABG pCO2 ABG pO2 ABG HCO3 ABG O2 Sat (Measured) ABG O2 Content ABG Base Excess Sudhir Test Patient On Oxygen O2 Delivery Device Oxygen Flow Rate Vent Mode Vent Rate Mechanical Rate PEEP Pressure Support Vent Sodium Potassium Chloride Carbon Dioxide Anion Gap BUN Creatinine Est GFR (CKD-EPI)AfAm Est GFR (CKD-EPI)NonAf Random Glucose Calcium Phosphorus Magnesium Total Bilirubin AST ALT Alkaline Phosphatase B-Natriuretic Peptide Total Protein Albumin Blood Type Antibody Screen Crossmatch Crossmatch IS Only 01/28/20 06:00 WBC RBC Hgb Hct MCV MCH MCHC RDW Plt Count MPV Absolute Neuts (auto) Neutrophils % Lymphocytes % Monocytes % Eosinophils % Basophils % Nucleated RBC % Haptoglobin PT with INR INR PTT (Actin FS) Fibrinogen D-Dimer Protein S Activity Anticoagulation Therapy Puncture Site Patient Temperature ABG pH ABG pCO2 ABG pO2 ABG HCO3 ABG O2 Sat (Measured) ABG O2 Content ABG Base Excess Sudhir Test Patient On Oxygen O2 Delivery Device Oxygen Flow Rate Vent Mode Vent Rate Mechanical Rate PEEP Pressure Support Vent Sodium 145 Potassium 3.3 L Chloride 112 H Carbon Dioxide 29 Anion Gap 4 L BUN 6.7 L Creatinine 0.5 L Est GFR (CKD-EPI)AfAm 144.31 Est GFR (CKD-EPI)NonAf 124.51 Random Glucose 88 Calcium 7.3 L Phosphorus 1.7 L Magnesium 2.2 Total Bilirubin 0.4 AST 45 H ALT 25 Alkaline Phosphatase 43 L B-Natriuretic Peptide 502.1 H Total Protein 5.2 L Albumin 2.5 L Blood Type Antibody Screen Crossmatch Crossmatch IS Only Active Medications Generic Name Dose Route Start Last Admin Trade Name Freq PRN Reason Stop Dose Admin Acetaminophen 1,000 mg 01/28/20 07:34 Ofirmev Injection - IVPB 01/29/20 07:34 Q6H PRN FEVER Artificial Tears 1 drop 01/26/20 17:24 01/28/20 06:17 Artificial Tears OU 1 drop Q4H PRN Administration DRY EYES Chlorhexidine Gluconate 1 applic 01/25/20 22:00 01/27/20 21:54 Hibiclens For Decolonization - TP 1 applic HS CHUCK Administration Chlorhexidine Gluconate 15 ml 01/26/20 22:00 01/28/20 09:40 Peridex - MM 15 ml BID CHUCK Administration Diphenhydramine HCl 12.5 mg 01/25/20 23:18 Benadryl Injection - IVPUSH ONCE PRN FOR ITCHING Fentanyl 50 mcg 01/25/20 17:38 Sublimaze Injection - IVPUSH [id number] PRN PAIN-PACU ORDER X 4 DOSES ONLY Metronidazole 250 mg in 50 mls @ 50 mls/hr 01/25/20 23:00 01/28/20 17:39 Flagyl 250mg Premixed Ivpb - IVPB 50 mls/hr Q8H-IV CHUCK Administration Midazolam HCl 100 mg in 100 mls @ 1 mls/hr 01/25/20 19:30 01/27/20 20:00 Midazolam 100mg/100ml-0.9%Nacl IVPB 6 mg/hr TITR CHUCK 6 mls/hr Administration Protocol 1 MG/HR Propofol 1,000,000 mcg in 100 mls @ 4.436 mls/hr 01/25/20 21:45 01/27/20 21:54 Diprivan - IVPB 50 mcg/kg/min TITR CHUCK 22.181 mls/hr Administration Protocol 10 MCG/KG/MIN Norepinephrine Bitartrate 8,000 mcg in 500 mls @ 18.75 mls/hr 01/26/20 00:30 01/28/20 03:08 Levophed Bag IVPB Not Given TITR CHUCK Protocol 5 MCG/MIN Vasopressin 40 units/ Sodium 100 mls @ 5 mls/hr 01/26/20 02:00 01/28/20 03:09 Chloride IVPB Not Given ASDIR CHUCK Protocol 2 UNITS/HR Cefepime HCl 2 gm/ Dextrose 100 mls @ 100 mls/hr 01/26/20 18:00 01/28/20 17:40 IVPB 100 mls/hr Q8H-IV CHUCK Administration Protocol Mupirocin 1 applic 01/25/20 22:00 01/28/20 09:39 Bactroban Ointment (For Decolonization) - NS 01/30/20 21:59 1 applic BID CHUCK Administration Ondansetron HCl 4 mg 01/25/20 17:38 Zofran Injection IVPUSH Q6H PRN NAUSEA AND/OR VOMITING Promethazine HCl 12.5 mg 01/25/20 17:38 Phenergan Injection - IVPUSH Q6H PRN NAUSEA-FOR RESCUE AFTER 15 MIN ASSESSMENT/PLAN: Assessment Uterine fibroids s/p myomectomy with acute blood loss anemia and DIC resulting in hemorrhagic shock. #Neuro -extubated -alert and oriented x3 #Pulm -extubated (01/28/2020) -Monitor with pulse oximetry #Cardio #hemorrhagic shock - off pressors - maintaining MAP >65 #Heme -per heme onc, continue with cbc, coags, fibrinogen, LDH, haptoglobin q12 hrs -transfuse for Hb <8, Plts <50k; give cryo if Fibrinogen <150 -hold off on any further TXA -D dimer downtrended to 9400s. Continue to trend -hemoglobin stabilized, continue to monitor -monitor K+ -if patient worsens, transfer to [facility]. team already spoke to their chief of critical care, Dr. Ez Henry #ID -fevers present -ID consult appreciated. continue with metronidazole 250 mg Q8H & cefepime 2 gm IVPB Q8H -f/u cultures #Renal BUN/Cr stable no acute issues good urine output - Patient as given 20 lasix IV push GI -Continue protonix 40mg QD Endocrine no acute issues FEN encourage PO intake monitor lytes feeds for tomorrow #DVT PPX -continue holding chemical ppx in setting of DIC -c/w SCD's Visit type - Emergency Visit Emergency Visit: Yes ED Registration Date: 01/25/20 Care time: The patient presented to the Emergency Department on the above date and was hospitalized for further evaluation of their emergent condition. - New Patient This patient is new to me today: No - Critical Care Critical Care patient: Yes Total Critical Care Time (in minutes): 36 Critical Care Statement: The care of this patient involved high complexity decision making to prevent further life threatening deterioration of the patient's condition and/or to evaluate & treat vital organ system(s) failure or risk of failure. ATTENDING PHYSICIAN STATEMENT I saw and evaluated the patient. I reviewed the resident's note and discussed the case with the resident. I agree with the resident's findings and plan as documented. SUBJECTIVE: OBJECTIVE: ASSESSMENT AND PLAN:
[2020-01-28] MEDS: PROPOFOL 1,000,000 MCG/100 ML VIAL IVPB SCH (22:42)
[2020-01-28] MEDS: CHLORHEXIDINE GLUCONATE 4% CLEANSER FOR DECOLONIZATION TP SCH (22:43)
[2020-01-28] MEDS ORDERED: LORazepam 2 MG/ML SDV VIAL IVPUSH ONE (22:51)
[2020-01-29 01:07] LABS: RISTOCETIN CO-FACTOR 170 % (50-200)
[2020-01-29] MEDS ORDERED: PT OWN MED DRAWER 7, Y5N ONE ×3 (01:12→18:25)
[2020-01-29] MEDS: CEFEPIME 2 GM in DEXTROSE 5%-WATER 100 ML IVPB SCH ×3 (01:20→18:32)
[2020-01-29 08:07] LABS: PROTHROMBIN TIME (PATIENT) 11.8 SEC (9.7-13.0)
[2020-01-29 08:09] LABS: ACTIVATED PTT 24.3 SECONDS (25.2-36.5); BASO % 0.3 % (0-2.0); HEMATOCRIT 26.4 % (32.4-45.2); HEMOGLOBIN 9.1 GM/dL (10.7-15.3); LYMPH % 16.5 % (8-40); MCH 30.6 pg (25.7-33.7); MCHC 34.5 g/dl (32.0-36.0); MEAN CELL VOLUME 88.8 fl (80-96); MEAN PLT VOLUME 8.8 fl (7.5-11.1); MONO % 4.1 % (3.8-10.2); NEUT % 78.1 % (42.8-82.8); PLATELET COUNT 153 K/MM3 (134-434); RBC 2.97 M/mm3 (3.60-5.2); RDW 13.9 % (11.6-15.6); WHITE BLOOD COUNT 8.9 K/mm3 (4.0-10.0)
[2020-01-29 08:16] LABS: ALBUMIN 2.6 g/dl (3.4-5.0); BILIRUBIN,TOTAL 0.7 mg/dL (0.2-1); BLOOD UREA NITROGEN 10.2 mg/dL (7-18); CALCIUM 7.8 mg/dL (8.5-10.1); CREATININE 0.5 mg/dL (0.55-1.3); POTASSIUM 3.3 mmol/L (3.5-5.1); TOT PROT 5.7 g/dl (6.4-8.2)
[2020-01-29] MEDS ORDERED: POTASSIUM CHLORIDE TABS 20 MEQ TABLET.ER (FP) PO ONE (08:36)
[2020-01-29] MEDS: CHLORHEXIDINE GLUCONATE 0.12% 15ML CUP MM SCH (09:39)
[2020-01-29] MEDS: MUPIROCIN 2% TOPICAL OINTMENT FOR DECOLONIZATION NS SCH (09:39)
[2020-01-29] MEDS ORDERED: FUROSEMIDE 40 MG/4 ML INJECTABLE VIAL IVPUSH ONE (10:50)
--- NOTE | 2020-01-29 10:52 | PN ---
Progress Note (short form) - Note Progress Note: POD 4, s/p open abdominal myomectomy c/b postoperative hemorrhage s/p exploration, placement of Baki balloon/GUCCI, s/p uterine artery embolization Pt seen and examined. Extubated yesterday. Sleepy, no issues overnight. Has not been oob. Unsure if she has passed flatus. Arteaga in place. Denies cp/sob. Vital Signs Temp 99.9 F H 01/29/20 10:00 Pulse 60 01/29/20 10:00 Resp 16 01/29/20 10:00 BP 130/84 01/29/20 10:00 Pulse Ox 97 01/29/20 10:00 Intake & Output 01/28/20 01/28/20 01/29/20 11:59 23:59 11:59 Intake Total 560 792 200 Output Total 2835 1135 1375 Balance -2275 -343 -1175 Weight 178 lb Intake: IV 360 192 DIPRIVAN - 1,000,000 mcg 288 180 In 100 ml @ 10 MCG/KG/MIN 4.436 mls/hr IVPB TITR CHUCK Rx#:[id number] MIDAZOLAM 100MG/100ML-0.9 72 12 %NACL 100 mg In 100 ml @ 1 MG/HR 1 mls/hr IVPB TITR CHUCK Rx#:[id number] IVPB 200 600 200 Output: Drainage 135 35 75 Right Lower Abdomen 135 35 75 Urine 2700 1100 1300 Arteaga 2700 1100 1300 Other: Voiding Method Indwelling Catheter Indwelling Catheter Indwelling Catheter Bowel Movement No No Height 5 ft 5 in Body Mass Index (BMI) 29.6 CBC, BMP 01/29/20 06:00 01/29/20 06:00 Gen: awake, alert, nad Resp: unlabored on RA satting 96% CV: tachy to low 100s, regular rhythm Abdo: soft, full, hypoactive bowel sounds, dressing removed, incision intact with steristrips in place, no oozing noted, rlq with GUCCI in place, dried blood noted around, tubing stripped, approx 20ml in reservoir Ext: + edema ue/les A/P: 34 y/o F w/ PMHx leiomyomas/menorrhagia, admitted for elective open abdominal myomectomy on 01/24, c/b postoperative hemorrhage s/p exploration, zaida cement of Bakri balloon/GUCCI (diffuse bleeding found), s/p uterine artery embolization, labs c/w DIC, now w/ Hemorrhagic Shock, Thrombocytopenia. Blood products: PACU after 1st SX: 2 units pRBCs Intraop (Exploration): 3 units pRBCs, 2 FFP, 1 platelets, 1 cryo Pacu after exploration: 2 units Prbcs, 1 FFP 01/24: uterine artery embolization overnight ICU (01/24): 5 units pRBCs, 2 platelets, 1 FFP, 1 cryo 01/25: 3 units pRBCs, 1 platelets, 5 FFP, 2 cryo, received 1G TXA 01/26: Received 1g TXA 01/27: extubated Off pressors since 01/25 Bakri balloon removed 01/25 GUCCI drain from 3pm 01/27 to 6 am today 75ml with additional 20ml since 6 AM UOP from 6 am 500ml (yellow urine) -oob to chair today -clear liquid diet ordered -continue to monitor CBC, coags, fibrinogen -monitor/record GUCCI output -continue antibiotics per ID -Keep arteaga in place, can remove after removal of justin and central line -DVT prophylaxis with SCDS, no chemical prophylaxis -Keep hgb >8, transfuse PLTs if < 50K low threshold, Fibrinogen 100-150 give FFP, if < 100 give Cryo -Hemeonc consult appreciated -continue ICU monitoring above d/w attending Dr Dominguez
--- NOTE | 2020-01-29 11:23 | PN ---
Teaching Attending Note Name of Resident: Eder Medina ATTENDING PHYSICIAN STATEMENT I saw and evaluated the patient. I reviewed the resident's note and discussed the case with the resident. I agree with the resident's findings and plan as documented. SUBJECTIVE: Pt seen and examined in the ICU. Remains extubated but still feels groggy. UGCCI wi th less output. H/H has been stable. Off pressors. OBJECTIVE: Vital Signs Period Temp Pulse Resp BP Sys/Conrad Pulse Ox Last 24 Hr 99.1 F-100.4 F 54-95 12-18 122-131/81-91 97-100 Intake & Output 01/26/20 01/27/20 01/28/20 01/29/20 23:59 23:59 23:59 23:59 Intake Total 8004.1 4394.4 1352 200 Output Total 4505 8125 3970 1375 Balance 3499.1 -3730.6 -2618 -1175 Weight 80.739 kg Gen: intubated, sedated Heart: RRR Lung: decreased breath sounds at the bases Abd: soft, nontender, dressings dry Ext: no edema CBC, BMP 01/29/20 06:00 01/29/20 06:00 Active Medications Artificial Tears (Artificial Tears) 1 drop OU Q4H PRN PRN Reason: DRY EYES Last Admin: 01/28/20 06:17 Dose: 1 drop Documented by: Chlorhexidine Gluconate (Hibiclens For Decolonization -) 1 applic TP HS CHUCK Last Admin: 01/28/20 22:43 Dose: 1 applic Documented by: Chlorhexidine Gluconate (Peridex -) 15 ml MM BID CHUCK Last Admin: 01/29/20 09:39 Dose: 15 ml Documented by: Metronidazole (Flagyl 250mg Premixed Ivpb -) 250 mg in 50 mls @ 50 mls/hr IVPB Q8H-IV CHUCK Last Admin: 01/29/20 09:37 Dose: 50 mls/hr Documented by: Cefepime HCl 2 gm/ Dextrose 100 mls @ 100 mls/hr IVPB Q8H-IV CHUCK; Protocol Last Admin: 01/29/20 10:37 Dose: 100 mls/hr Documented by: Mupirocin (Bactroban Ointment (For Decolonization) -) 1 applic NS BID CHUCK Stop: 01/30/20 21:59 Last Admin: 01/29/20 09:39 Dose: 1 applic Documented by: Ondansetron HCl (Zofran Injection) 4 mg IVPUSH Q6H PRN PRN Reason: NAUSEA AND/OR VOMITING ASSESSMENT AND PLAN: Uterine Fibroids s/p Myomectomy Acute Blood Loss Anemia DIC Hemorrhagic Shock resolving Thrombocytopenia - monitor CBC, coags, fibrinogen level - transfuse as needed - monitor calcium - off pressors, maintain MAP >65 - lasix today - monitor GUCCI output - on empiric antibiotics - f/u cultures - titrate Fio2 to keep SpO2 >90% - OOB to chair - rehab/PT - DVT prophylaxis - can monitor on floor
[2020-01-29] MEDS: MIDAZOLAM IN 0.9 % SOD.CHLORID 100 MG/100 ML PLAST..BAG IVPB SCH (11:38)
[2020-01-29] MEDS: VASOPRESSIN 40 UNITS in SODIUM CHLORIDE 98 ML IVPB SCH (11:38)
[2020-01-29] MEDS: NOREPINEPHRINE BITARTRATE 8,000 MCG/500 ML BAG IVPB SCH (11:38)
--- NOTE | 2020-01-29 12:57 | PN ---
Physical Exam: SUBJECTIVE: Patient seen and examined at bedside - no acute events overnight; patient was extubated yesterday; she states she is feeling better just feeling slightly groggy- patient has not required any blood products since 01/26- she has has minimal vaginal bleeding (only 1 pad was changed) and has around 30ml ouptut from her GUCCI drain she has not needed required pressors in over 24 hours OBJECTIVE: Vital Signs Period Temp Pulse Resp BP Sys/Conrad Pulse Ox Last 24 Hr 99.1 F-100.4 F 54-95 12-18 122-131/81-91 97-100 GENERAL: The patient is awake, answering questions NAD EYES: PEERLA: EOMI no scleral icterus NECK: no JVD; no lyumphadenopathy LUNGS: decreased breath sounds at the bases. HEART: Regular rate and rhythm, S1, S2 without murmur, rub or gallop. ABDOMEN: Soft, slight surapubic tenderness upon palpation +BS EXTREMITIES: 2+ pulses, warm, well-perfused, no edema SCDS in place. PSYCH: Normal mood, normal affect. SKIN: Warm, dry, normal turgor, no rashes or lesions noted Laboratory Results - last 24 hr 01/25/20 01/25/20 01/27/20 06:15 18:15 06:00 WBC RBC Hgb Hct MCV MCH MCHC RDW Plt Count MPV Absolute Neuts (auto) Neutrophils % Lymphocytes % Monocytes % Eosinophils % Basophils % Nucleated RBC % PT with INR INR PTT (Actin FS) Fibrinogen D-Dimer Protein S Activity 27 L von Willebrand Activity von Willebrand Antigen 235 H Sodium Potassium Chloride Carbon Dioxide Anion Gap BUN Creatinine Est GFR (CKD-EPI)AfAm Est GFR (CKD-EPI)NonAf Random Glucose Calcium Total Bilirubin AST ALT Alkaline Phosphatase LD Total Total Protein Albumin Blood Type O POSITIVE Antibody Screen Negative Crossmatch See Detail Crossmatch IS Only See Detail 01/27/20 01/29/20 01/29/20 06:00 06:00 06:00 WBC 8.9 RBC 2.97 L Hgb 9.1 L Hct 26.4 L MCV 88.8 MCH 30.6 MCHC 34.5 RDW 13.9 Plt Count 153 MPV 8.8 Absolute Neuts (auto) 7.0 Neutrophils % 78.1 Lymphocytes % 16.5 Monocytes % 4.1 Eosinophils % 1.0 Basophils % 0.3 Nucleated RBC % 1 H PT with INR 11.80 INR 1.00 PTT (Actin FS) 24.3 L Fibrinogen D-Dimer Protein S Activity von Willebrand Activity 170 von Willebrand Antigen Sodium Potassium Chloride Carbon Dioxide Anion Gap BUN Creatinine Est GFR (CKD-EPI)AfAm Est GFR (CKD-EPI)NonAf Random Glucose Calcium Total Bilirubin AST ALT Alkaline Phosphatase LD Total Total Protein Albumin Blood Type Antibody Screen Crossmatch Crossmatch IS Only 01/29/20 01/29/20 01/29/20 06:00 06:00 06:00 WBC RBC Hgb Hct MCV MCH MCHC RDW Plt Count MPV Absolute Neuts (auto) Neutrophils % Lymphocytes % Monocytes % Eosinophils % Basophils % Nucleated RBC % PT with INR INR PTT (Actin FS) Fibrinogen 434.0 D-Dimer 9033 H Protein S Activity von Willebrand Activity von Willebrand Antigen Sodium 143 Potassium 3.3 L Chloride 108 H Carbon Dioxide 28 Anion Gap 7 L BUN 10.2 Creatinine 0.5 L Est GFR (CKD-EPI)AfAm 144.31 Est GFR (CKD-EPI)NonAf 124.51 Random Glucose 99 Calcium 7.8 L Total Bilirubin 0.7 AST 51 H ALT 45 Alkaline Phosphatase 53 LD Total 481 H Total Protein 5.7 L Albumin 2.6 L Blood Type Antibody Screen Crossmatch Crossmatch IS Only Active Medications Generic Name Dose Route Start Last Admin Trade Name Freq PRN Reason Stop Dose Admin Artificial Tears 1 drop 01/26/20 17:24 01/28/20 06:17 Artificial Tears OU 1 drop Q4H PRN Administration DRY EYES Chlorhexidine Gluconate 1 applic 01/25/20 22:00 01/28/20 22:43 Hibiclens For Decolonization - TP 1 applic HS CHUCK Administration Chlorhexidine Gluconate 15 ml 01/26/20 22:00 01/29/20 09:39 Peridex - MM 15 ml BID CHUCK Administration Metronidazole 250 mg in 50 mls @ 50 mls/hr 01/25/20 23:00 01/29/20 09:37 Flagyl 250mg Premixed Ivpb - IVPB 50 mls/hr Q8H-IV CHUCK Administration Cefepime HCl 2 gm/ Dextrose 100 mls @ 100 mls/hr 01/26/20 18:00 01/29/20 10:37 IVPB 100 mls/hr Q8H-IV CHUCK Administration Protocol Mupirocin 1 applic 01/25/20 22:00 01/29/20 09:39 Bactroban Ointment (For Decolonization) - NS 01/30/20 21:59 1 applic BID CHUCK Administration Ondansetron HCl 4 mg 01/25/20 17:38 Zofran Injection IVPUSH Q6H PRN NAUSEA AND/OR VOMITING ASSESSMENT/PLAN: 34 F with no Signficant PMH presents to hospital for myomectomy 2/2 menorrhagia. Admitted to ICU for DIC and hemorrhagic shock. POD # 4 s/p ex lap; myomectomy w/ uterine artery embolization c/b hemorrhagic shock and DIC -patient has not required blood products since 01/26 -patient off pressors -heme on board -OBGYN on board -continue to monitor cbc, coags, fibrinogen, LDH, haptoglobin q12 hrs -transfuse for Hb <8, Plts <50k; give cryo if Fibrinogen <150 -monitor for signs of any excess bleeding -incentive spirometry -maintain MAP >65 -c/w cefepime and flagyl (day 4) -SCDS for dvt ppx -OOB to chair -monitor GUCCI output -monitor vaginal bleeding #hypokalemia repleted will repeat BMP this afternoon patient is medically stable for med-surg floor f/e/n not on standing fluids hypokalemia; repleted soft diet dvt ppx: scds Problem List - Problems (1) DIC (disseminated intravascular coagulation) Code(s): D65 - DISSEMINATED INTRAVASCULAR COAGULATION (2) Hemorrhagic shock Code(s): R57.8 - OTHER SHOCK (3) S/P myomectomy Code(s): Z98.890 - OTHER SPECIFIED POSTPROCEDURAL STATES Visit type - Emergency Visit Emergency Visit: Yes ED Registration Date: 01/25/20 Care time: The patient presented to the Emergency Department on the above date and was hospitalized for further evaluation of their emergent condition. - New Patient This patient is new to me today: Yes Date on this admission: 01/29/20 - Critical Care Critical Care patient: No ATTENDING PHYSICIAN STATEMENT I saw and evaluated the patient. I reviewed the resident's note and discussed the case with the resident. I agree with the resident's findings and plan as documented. SUBJECTIVE: OBJECTIVE: ASSESSMENT AND PLAN:
--- NOTE | 2020-01-29 13:04 | PN ---
Teaching Attending Note Name of Resident: Carmel Pratt ATTENDING PHYSICIAN STATEMENT I saw and evaluated the patient. I reviewed the resident's note and discussed the case with the resident. I agree with the resident's findings and plan as documented. SUBJECTIVE: 34yo F with no Mhx (taking OCP's outpatient) who presented originally for m yomectomy with complication of hemorrhagic shock requiring frequent tranfusions and pressor usage in ICU stay. Patient was suspected to have DIC and was consulted for appropriate services. Patient noted to have febrile events ongoing and started on antibiotics 01/25/2020 suspected from hematoma formation vs. blood products both covering for abdominal sources as well. Patient was stabilized and had not had any bleeding or utilization of blood products for 24hrs and it was decided to transfer out of ICU. Pt currently has generalized weakness and has minimal pain around procedure site. Patient otherwise has no complaints and has been passing gas recently. OBJECTIVE: Vital Signs Temperature 99.8 F H 01/29/20 12:00 Pulse Rate 54 L 01/29/20 12:00 Respiratory Rate 18 01/29/20 12:00 Blood Pressure 130/84 01/29/20 12:00 O2 Sat by Pulse Oximetry (%) 99 01/29/20 12:00 PE: Gen: NAD, awkae, alert, oriented x3 HEENT: Nc/AT, JAVIER, EOMI, sclera anicteric, MMM Neck: No JVD, no central lines in place LUNG: Poor inspiratory effort, no overt wheezes or rales. On 2LNC CAR: Bradycardic with regular rhythm. no murmurs ABD: Soft, ND, minimal tenderness of abdomen localizing around surgical sites. GUCCI noted with serosanguinous drainage. No edema EXT: 2+ DP pulses b/l, no edema noted CBC, BMP 01/29/20 06:00 01/29/20 06:00 Coagulation Studies 01/29/20 01/29/20 01/29/20 06:00 06:00 06:00 PT with INR 11.80 INR 1.00 PTT (Actin FS) 24.3 L Fibrinogen 434.0 D-Dimer 9033 H Active Medications Artificial Tears (Artificial Tears) 1 drop OU Q4H PRN PRN Reason: DRY EYES Last Admin: 01/28/20 06:17 Dose: 1 drop Documented by: Metronidazole (Flagyl 250mg Premixed Ivpb -) 250 mg in 50 mls @ 50 mls/hr IVPB Q8H-IV CHUCK Last Admin: 01/29/20 09:37 Dose: 50 mls/hr Documented by: Cefepime HCl 2 gm/ Dextrose 100 mls @ 100 mls/hr IVPB Q8H-IV CHUCK; Protocol Last Admin: 01/29/20 10:37 Dose: 100 mls/hr Documented by: Ondansetron HCl (Zofran Injection) 4 mg IVPUSH Q6H PRN PRN Reason: NAUSEA AND/OR VOMITING Blood products: PACU after 1st SX: 2 units pRBCs Intraop (Exploration): 3 units pRBCs, 2 FFP, 1 platelets, 1 cryo Pacu after exploration: 2 units Prbcs, 1 FFP 01/24: uterine artery embolization overnight ICU (01/24): 5 units pRBCs, 2 platelets, 1 FFP, 1 cryo 01/25: 3 units pRBCs, 1 platelets, 5 FFP, 2 cryo, received 1G TXA 01/26: Received 1g TXA Totals: 15 U PRBC, 9 FFP, 4 Plts, 3 Cryo, 2G TXA Notable Events: 01/27: extubated Off pressors since 01/25 Bakri balloon removed 01/25 UOP from 6 am 500ml (yellow urine) ASSESSMENT AND PLAN: POD 4 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 hematoma formation vs. intra-abdominal source --Monitor temperatures; if develop spiking fevers and WBC increased will likely perform CT A/P for r/o abscess formation --Antibiotics day 5 --As per ID management --Would wait for tylenol use to trend temperatures --Bradycardia possibly due to electrolyte abnormalities --Monitor for any pauses >2seconds --Medications reviewed FEN: Fluids: PO Electrolyte abnormalities: Replete Nutrition: As tolerated PPX: DVT - SCDs only Dispo: Telemetry given sinus bradycardia
--- NOTE | 2020-01-29 13:18 | PN ---
Physical Exam: SUBJECTIVE: Patient seen and examined. Patient reports feeling well and has no complaints, asking for food. Decreased output from GUCCI drain, although still bloody. Low grade fevers overnight. Has not needed any blood products since 01/26. Extubated 01/27. OBJECTIVE: Vital Signs Temperature 99.8 F H 01/29/20 12:00 Pulse Rate 54 L 01/29/20 12:00 Respiratory Rate 18 01/29/20 12:00 Blood Pressure 130/84 01/29/20 12:00 O2 Sat by Pulse Oximetry (%) 99 01/29/20 12:00 GENERAL: The patient is awake, alert, and fully oriented, in no acute distress. HEAD: Normal with no signs of trauma. EYES: PERRLA, EOMI, conjunctiva clear. ENT:dry mucous membranes. NECK: Trachea midline, full range of motion, supple. LUNGS: Decreased breath sounds on bilateral bases HEART: Regular rate and rhythm, S1, S2 without murmur ABDOMEN: Soft, +suprapubic tenderness on deep palpation, nondistended, normoactive bowel sounds, GUCCI drain in place draining sanguinous fluid EXTREMITIES: 2+ pulses, warm, well-perfused, no edema. NEUROLOGICAL: Cranial nerves II through XII grossly intact. Normal speech PSYCH: Normal mood, normal affect. SKIN: Warm, dry, normal turgor Laboratory Results - last 24 hr 01/25/20 01/25/20 01/27/20 06:15 18:15 06:00 WBC RBC Hgb Hct MCV MCH MCHC RDW Plt Count MPV Absolute Neuts (auto) Neutrophils % Lymphocytes % Monocytes % Eosinophils % Basophils % Nucleated RBC % PT with INR INR PTT (Actin FS) Fibrinogen D-Dimer Protein S Activity 27 L von Willebrand Activity von Willebrand Antigen 235 H Sodium Potassium Chloride Carbon Dioxide Anion Gap BUN Creatinine Est GFR (CKD-EPI)AfAm Est GFR (CKD-EPI)NonAf Random Glucose Calcium Total Bilirubin AST ALT Alkaline Phosphatase LD Total Total Protein Albumin Blood Type O POSITIVE Antibody Screen Negative Crossmatch See Detail Crossmatch IS Only See Detail 01/27/20 01/29/20 01/29/20 06:00 06:00 06:00 WBC 8.9 RBC 2.97 L Hgb 9.1 L Hct 26.4 L MCV 88.8 MCH 30.6 MCHC 34.5 RDW 13.9 Plt Count 153 MPV 8.8 Absolute Neuts (auto) 7.0 Neutrophils % 78.1 Lymphocytes % 16.5 Monocytes % 4.1 Eosinophils % 1.0 Basophils % 0.3 Nucleated RBC % 1 H PT with INR 11.80 INR 1.00 PTT (Actin FS) 24.3 L Fibrinogen D-Dimer Protein S Activity von Willebrand Activity 170 von Willebrand Antigen Sodium Potassium Chloride Carbon Dioxide Anion Gap BUN Creatinine Est GFR (CKD-EPI)AfAm Est GFR (CKD-EPI)NonAf Random Glucose Calcium Total Bilirubin AST ALT Alkaline Phosphatase LD Total Total Protein Albumin Blood Type Antibody Screen Crossmatch Crossmatch IS Only 01/29/20 01/29/20 01/29/20 06:00 06:00 06:00 WBC RBC Hgb Hct MCV MCH MCHC RDW Plt Count MPV Absolute Neuts (auto) Neutrophils % Lymphocytes % Monocytes % Eosinophils % Basophils % Nucleated RBC % PT with INR INR PTT (Actin FS) Fibrinogen 434.0 D-Dimer 9033 H Protein S Activity von Willebrand Activity von Willebrand Antigen Sodium 143 Potassium 3.3 L Chloride 108 H Carbon Dioxide 28 Anion Gap 7 L BUN 10.2 Creatinine 0.5 L Est GFR (CKD-EPI)AfAm 144.31 Est GFR (CKD-EPI)NonAf 124.51 Random Glucose 99 Calcium 7.8 L Total Bilirubin 0.7 AST 51 H ALT 45 Alkaline Phosphatase 53 LD Total 481 H Total Protein 5.7 L Albumin 2.6 L Blood Type Antibody Screen Crossmatch Crossmatch IS Only Active Medications Generic Name Dose Route Start Last Admin Trade Name Freq PRN Reason Stop Dose Admin Artificial Tears 1 drop 01/26/20 17:24 01/28/20 06:17 Artificial Tears OU 1 drop Q4H PRN Administration DRY EYES Chlorhexidine Gluconate 1 applic 01/25/20 22:00 01/28/20 22:43 Hibiclens For Decolonization - TP 1 applic HS CHUCK Administration Chlorhexidine Gluconate 15 ml 01/26/20 22:00 01/29/20 09:39 Peridex - MM 15 ml BID CHUCK Administration Metronidazole 250 mg in 50 mls @ 50 mls/hr 01/25/20 23:00 01/29/20 09:37 Flagyl 250mg Premixed Ivpb - IVPB 50 mls/hr Q8H-IV CHUCK Administration Cefepime HCl 2 gm/ Dextrose 100 mls @ 100 mls/hr 01/26/20 18:00 01/29/20 10:37 IVPB 100 mls/hr Q8H-IV CHUCK Administration Protocol Mupirocin 1 applic 01/25/20 22:00 01/29/20 09:39 Bactroban Ointment (For Decolonization) - NS 01/30/20 21:59 1 applic BID CHUCK Administration Ondansetron HCl 4 mg 01/25/20 17:38 Zofran Injection IVPUSH Q6H PRN NAUSEA AND/OR VOMITING ASSESSMENT/PLAN: Patient is a 34F s/p myomectomy c/b post op hemorrhage requiring massive transfusion protocol and tranexamic acid with uterine artery embolization by IR, with concern for DIC. #s/p myomectomy with post-op hemorrhage, concern for DIC -POD 3 -s/p 15u prbc, 9u FFP, 4u cryo, 5u platelets -off pressors 01/26, extubated 01/27, has not needed any blood products since 01/26 -tranexamic acid x2 - 01/25, 01/26 -GUCCI drain output decreased -continue with cbc, coags, fibrinogen, LDH, haptoglobin q12 hrs for now -transfuse for Hb <8, Plts <50k; give cryo if Fibrinogen <150 -hold off on any further TXA for now as patient's counts are stable and no signs of excessive bleeding Visit type - Emergency Visit Emergency Visit: Yes ED Registration Date: 01/25/20 Care time: The patient presented to the Emergency Department on the above date and was hospitalized for further evaluation of their emergent condition. - New Patient This patient is new to me today: Yes Date on this admission: 01/29/20 - Critical Care Critical Care patient: No ATTENDING PHYSICIAN STATEMENT I saw and evaluated the patient. I reviewed the resident's note and discussed the case with the resident. I agree with the resident's findings and plan as documented. SUBJECTIVE: OBJECTIVE: ASSESSMENT AND PLAN:
--- NOTE | 2020-01-29 14:03 | PN ---
Progress Note, Physician History of Present Illness: patient awake and alert - Current Medication List Current Medications: Active Medications Artificial Tears (Artificial Tears) 1 drop OU Q4H PRN PRN Reason: DRY EYES Last Admin: 01/28/20 06:17 Dose: 1 drop Documented by: Chlorhexidine Gluconate (Hibiclens For Decolonization -) 1 applic TP HS CHUCK Last Admin: 01/28/20 22:43 Dose: 1 applic Documented by: Chlorhexidine Gluconate (Peridex -) 15 ml MM BID CHUCK Last Admin: 01/29/20 09:39 Dose: 15 ml Documented by: Metronidazole (Flagyl 250mg Premixed Ivpb -) 250 mg in 50 mls @ 50 mls/hr IVPB Q8H-IV CHUCK Last Admin: 01/29/20 09:37 Dose: 50 mls/hr Documented by: Cefepime HCl 2 gm/ Dextrose 100 mls @ 100 mls/hr IVPB Q8H-IV CHUCK; Protocol Last Admin: 01/29/20 10:37 Dose: 100 mls/hr Documented by: Mupirocin (Bactroban Ointment (For Decolonization) -) 1 applic NS BID CHUCK Stop: 01/30/20 21:59 Last Admin: 01/29/20 09:39 Dose: 1 applic Documented by: Ondansetron HCl (Zofran Injection) 4 mg IVPUSH Q6H PRN PRN Reason: NAUSEA AND/OR VOMITING - Objective Vital Signs: Vital Signs Temperature 99.8 F H 01/29/20 12:00 Pulse Rate 54 L 01/29/20 12:00 Respiratory Rate 18 01/29/20 12:00 Blood Pressure 130/84 01/29/20 12:00 O2 Sat by Pulse Oximetry (%) 99 01/29/20 12:00 Constitutional: Yes: No Distress, Calm Cardiovascular: Yes: S1, S2 Respiratory: Yes: Regular, CTA Bilaterally Gastrointestinal: Yes: Normal Bowel Sounds, Soft Musculoskeletal: Yes: WNL Extremities: Yes: WNL Neurological: Yes: Alert, Oriented Psychiatric: Yes: Alert, Oriented Labs: CBC, BMP 01/29/20 06:00 01/29/20 06:00 INR, PTT INR 1.00 (0.83-1.09) 01/29/20 06:00 Fibrinogen 434.0 mg/dL (238-498) 01/29/20 06:00 Assessment/Plan Uterine Fibroids s/p Myomectomy POD 1 Acute Blood Loss Anemia DIC Hemorrhagic Shock Thrombocytopenia plan continue iv abx monitor fevers close watch rest as per the team
[2020-01-29] MEDS ORDERED: ONDANSETRON 4 MG/2 ML VIAL IVPUSH PRN (16:17)
[2020-01-29 17:58] LABS: HEMATOCRIT 29.6 % (32.4-45.2); HEMOGLOBIN 10.5 GM/dL (10.7-15.3); MCH 31.4 pg (25.7-33.7); MCHC 35.4 g/dl (32.0-36.0); MEAN CELL VOLUME 88.7 fl (80-96); MEAN PLT VOLUME 8.7 fl (7.5-11.1); PLATELET COUNT 185 K/MM3 (134-434); RBC 3.33 M/mm3 (3.60-5.2); RDW 14.2 % (11.6-15.6); WHITE BLOOD COUNT 9.5 K/mm3 (4.0-10.0)
[2020-01-29 18:12] LABS: PROTHROMBIN TIME (PATIENT) 11.8 SEC (9.7-13.0)
[2020-01-29 18:14] LABS: BLOOD UREA NITROGEN 12.6 mg/dL (7-18); CALCIUM 8.4 mg/dL (8.5-10.1); CREATININE 0.5 mg/dL (0.55-1.3); POTASSIUM 3.5 mmol/L (3.5-5.1)
[2020-01-29 18:15] LABS: ACTIVATED PTT 24.8 SECONDS (25.2-36.5)
--- NOTE | 2020-01-29 18:30 | HOSP ---
Subjective - Review of Symptoms Subjective: Patient seen and examined. No overnight events. Patient complains that she r emains sleep after being extubated. Gastrointestinal: Yes: Abdominal Pain (soreness at surgical site. ) Physical Examination Vital Signs: Vital Signs Temperature 99.4 F 01/29/20 16:00 Pulse Rate 68 01/29/20 16:00 Respiratory Rate 14 01/29/20 16:00 Blood Pressure 138/83 01/29/20 16:00 O2 Sat by Pulse Oximetry (%) 97 01/29/20 16:55 Gastrointestinal: Yes: Normal Bowel Sounds, Tenderness (tenderness at surgical site), Other (surgical incisions dry, non-erythematous, non-edematous) Labs: CBC, BMP 01/29/20 17:17 01/29/20 17:17 Hospitalist Encounter Assessment: Pt is a 34 F with no Signficant PMH presents to hospital for myomectomy 2/2 menorrhagia. Admitted to ICU for DIC and hemorrhagic shock. The surgery was performed without complications intraoperatively. In the PACU, she was found to be hypotensive and anuric with vagina bleeding. As a result, s he was brought back to the OR for an ex lap to investigate the cause of bleeding. A Bakri balloon was placed for tamponade. A 2.0 cm. small bowel serosal tear was repaired. Post-operatively, patient soaked through multiple vaginal pads. GUCCI tube was placed that drained sanguinous fluid. Pt was intubated and sedated with propofol and midazolam. Initial vent settings: TV-400, rate 10, PEEP 5, 100%FiO2. Patient underwent a uterine artery embolization. Patient continued to bleed, draining as much as 2 L. Fibrinogen was low at 135, [place] [address] and platelets as low as 27. Pt received 14 units of RBCs, 9 FFP, 4 units of platelets, and 4 cryoprecipitate. Pt's blood pressure was managed with Levophed and Vasopressin Hemoglobin/Hct improved and patient's BP stabilized. Pt was extubated. Pt is stable. Right radial A-line & Right IJ central line were removed today. Visit type - Emergency Visit Emergency Visit: Yes ED Registration Date: 01/25/20 Care time: The patient presented to the Emergency Department on the above date and was hospitalized for further evaluation of their emergent condition. - New Patient This patient is new to me today: No - Critical Care Critical Care patient: No
[2020-01-29] MEDS ORDERED: ACETAMINOPHEN 1000 MG/100 ML VIAL (NON FORMULARY) IVPB ONE (23:11)
[2020-01-30] MEDS ORDERED: PT OWN MED DRAWER 7, Y5N ONE ×3 (00:56→17:05)
[2020-01-30] MEDS: CEFEPIME 2 GM in DEXTROSE 5%-WATER 100 ML IVPB SCH ×3 (02:49→17:15)
[2020-01-30] MEDS ORDERED: guaiFENesin 200 MG/10 ML 10 ML UNIT-DOSE CUPS PO ONE (04:06)
--- NOTE | 2020-01-30 06:16 | PN.HO ---
Progress Note (short form) - Note Progress Note: PAtient seen and examined Extubated Answering questions coherently Feeling a little groggy Last Vital Signs Temp Pulse Resp BP Pulse Ox 97 F L 94 H 24 H 135/83 100 01/25/20 23:45 01/26/20 06:45 01/26/20 06:45 01/26/20 06:45 01/26/20 06:45 AFVSS Cor: RSR, No murmurs, No gallops Lungs: Clear to P&A Abd: Soft, Normal bowel sounds, Ext:No significant edema Labs/meds: reviewed A/P 34 y/o patient s/p myomectomy, with post op. hemorrhage s/p >12 units PRBCs s/p several units monodonor platelets s/p FFP, cryo s/p tranexamic acid 1g x 2 doses Stable CBC/nl coags will follow
[2020-01-30 08:22] LABS: HEMATOCRIT 27.4 % (32.4-45.2); HEMOGLOBIN 9.9 GM/dL (10.7-15.3); MCH 31.8 pg (25.7-33.7); MCHC 36.1 g/dl (32.0-36.0); MEAN CELL VOLUME 88.1 fl (80-96); MEAN PLT VOLUME 8.3 fl (7.5-11.1); PLATELET COUNT 182 K/MM3 (134-434); RBC 3.11 M/mm3 (3.60-5.2); RDW 13.8 % (11.6-15.6); WHITE BLOOD COUNT 7.5 K/mm3 (4.0-10.0)
[2020-01-30 08:23] LABS: INR 1.03 (0.83-1.09); PROTHROMBIN TIME (PATIENT) 12.1 SEC (9.7-13.0)
[2020-01-30 08:26] LABS: ACTIVATED PTT 21.9 SECONDS (25.2-36.5)
[2020-01-30 08:57] LABS: POTASSIUM 3.2 mmol/L (3.5-5.1)
[2020-01-30 09:07] LABS: ALBUMIN 2.8 g/dl (3.4-5.0); BILIRUBIN,TOTAL 0.8 mg/dL (0.2-1); BLOOD UREA NITROGEN 12.1 mg/dL (7-18); CALCIUM 8.1 mg/dL (8.5-10.1); CREATININE 0.6 mg/dL (0.55-1.3); MAGNESIUM 2.3 mg/dL (1.8-2.4); TOT PROT 6.1 g/dl (6.4-8.2)
--- NOTE | 2020-01-30 11:22 | PN ---
Progress Note, Physician History of Present Illness: stable doing well still coughing with mucus - Current Medication List Current Medications: Active Medications Cefepime HCl 2 gm/ Dextrose 100 mls @ 100 mls/hr IVPB Q8H-IV CHUCK; Protocol Last Admin: 01/30/20 10:40 Dose: 100 mls/hr Documented by: Metronidazole (Flagyl 250mg Premixed Ivpb -) 250 mg in 50 mls @ 50 mls/hr IVPB Q8H-IV CHUCK Last Admin: 01/30/20 09:33 Dose: 50 mls/hr Documented by: Ondansetron HCl (Zofran Injection) 4 mg IVPUSH Q6H PRN PRN Reason: NAUSEA AND/OR VOMITING - Objective Vital Signs: Vital Signs Temperature 99.1 F 01/30/20 06:00 Pulse Rate 74 01/30/20 06:00 Respiratory Rate 18 01/30/20 06:00 Blood Pressure 123/74 01/30/20 06:00 O2 Sat by Pulse Oximetry (%) 97 01/30/20 06:00 Constitutional: Yes: Calm, Mild Distress Cardiovascular: Yes: Regular Rate and Rhythm Respiratory: Yes: Regular Gastrointestinal: Yes: Soft, Hypoactive Bowel Sounds Musculoskeletal: Yes: WNL Extremities: Yes: WNL Neurological: Yes: Alert, Oriented Psychiatric: Yes: Alert, Oriented Labs: CBC, BMP 01/30/20 07:59 01/30/20 07:59 INR, PTT INR 1.03 (0.83-1.09) 01/30/20 07:59 Fibrinogen > 500.0 mg/dL (238-498) H 01/29/20 17:17 Assessment/Plan Uterine Fibroids s/p Myomectomy POD 1 Acute Blood Loss Anemia DIC Hemorrhagic Shock Thrombocytopenia plan continue iv abx monitor fevers close watch rest as per the team if remains afebrile for another 24 hrs will start deescalting abx
[2020-01-30] MEDS ORDERED: POTASSIUM CHLORIDE TABS 20 MEQ TABLET.ER (FP) PO ONE (14:42)
--- NOTE | 2020-01-30 15:10 | PN ---
Physical Exam: SUBJECTIVE: Patient seen and examined, eating breakfast, denies complains OBJECTIVE: Vital Signs Period Temp Pulse Resp BP Sys/Conrad Pulse Ox Last 24 Hr 98.0 F-99.4 F 68-86 14-20 123-144/59-83 97-99 Gen: NAD, awkae, alert, oriented x3 HEENT: Nc/AT, JAVIER, EOMI, sclera anicteric, MMM Neck: No JVD, no central lines in place LUNG: clear, no overt wheezes or rales. CAR: Bradycardic with regular rhythm. no murmurs ABD: Soft, ND, minimal tenderness of abdomen localizing around surgical sites. GUCCI noted with serosanguinous drainage. No edema EXT: 2+ DP pulses b/l, no edema noted Laboratory Results - last 24 hr 01/26/20 01/27/20 01/29/20 05:20 06:00 06:00 WBC RBC Hgb Hct MCV MCH MCHC RDW Plt Count MPV Haptoglobin 76 PT with INR INR PTT (Actin FS) Fibrinogen Factor XIII Normal Sodium Potassium Chloride Carbon Dioxide Anion Gap BUN Creatinine Est GFR (CKD-EPI)AfAm Est GFR (CKD-EPI)NonAf Random Glucose Calcium Phosphorus Magnesium Total Bilirubin AST ALT Alkaline Phosphatase LD Total Total Protein Albumin Blood Type O POSITIVE Antibody Screen Negative Direct Antiglob Test Negative Crossmatch See Detail 01/29/20 01/29/20 01/29/20 17:17 17:17 17:17 WBC 9.5 RBC 3.33 L Hgb 10.5 L Hct 29.6 L MCV 88.7 MCH 31.4 MCHC 35.4 RDW 14.2 Plt Count 185 D MPV 8.7 Haptoglobin PT with INR 11.80 INR 1.00 PTT (Actin FS) 24.8 L Fibrinogen Factor XIII Sodium 142 Potassium 3.5 Chloride 108 H Carbon Dioxide 27 Anion Gap 8 BUN 12.6 Creatinine 0.5 L Est GFR (CKD-EPI)AfAm 144.31 Est GFR (CKD-EPI)NonAf 124.51 Random Glucose 116 H Calcium 8.4 L Phosphorus Magnesium Total Bilirubin AST ALT Alkaline Phosphatase LD Total Total Protein Albumin Blood Type Antibody Screen Direct Antiglob Test Crossmatch 01/29/20 01/29/20 01/30/20 17:17 17:17 07:59 WBC 7.5 RBC 3.11 L Hgb 9.9 L Hct 27.4 L MCV 88.1 MCH 31.8 MCHC 36.1 H RDW 13.8 Plt Count 182 MPV 8.3 Haptoglobin PT with INR INR PTT (Actin FS) Fibrinogen > 500.0 H Factor XIII Sodium Potassium Chloride Carbon Dioxide Anion Gap BUN Creatinine Est GFR (CKD-EPI)AfAm Est GFR (CKD-EPI)NonAf Random Glucose Calcium Phosphorus Magnesium Total Bilirubin AST ALT Alkaline Phosphatase LD Total 537 H Total Protein Albumin Blood Type Antibody Screen Direct Antiglob Test Crossmatch 01/30/20 01/30/20 07:59 07:59 WBC RBC Hgb Hct MCV MCH MCHC RDW Plt Count MPV Haptoglobin PT with INR 12.10 INR 1.03 PTT (Actin FS) 21.9 L Fibrinogen Factor XIII Sodium 143 Potassium 3.2 L Chloride 109 H Carbon Dioxide 27 Anion Gap 7 L BUN 12.1 Creatinine 0.6 Est GFR (CKD-EPI)AfAm 135.91 Est GFR (CKD-EPI)NonAf 117.26 Random Glucose 119 H Calcium 8.1 L Phosphorus 2.0 L Magnesium 2.3 Total Bilirubin 0.8 AST 44 H ALT 47 Alkaline Phosphatase 54 LD Total 473 H Total Protein 6.1 L Albumin 2.8 L Blood Type Antibody Screen Direct Antiglob Test Crossmatch Active Medications Generic Name Dose Route Start Last Admin Trade Name Freq PRN Reason Stop Dose Admin Cefepime HCl 2 gm/ Dextrose 100 mls @ 100 mls/hr 01/29/20 18:00 01/30/20 10:40 IVPB 100 mls/hr Q8H-IV CHUCK Administration Protocol Metronidazole 250 mg in 50 mls @ 50 mls/hr 01/29/20 18:00 01/30/20 09:33 Flagyl 250mg Premixed Ivpb - IVPB 50 mls/hr Q8H-IV CHUCK Administration Ondansetron HCl 4 mg 01/29/20 16:17 Zofran Injection IVPUSH Q6H PRN NAUSEA AND/OR VOMITING Potassium Chloride 40 meq 01/30/20 14:42 K-Dur - PO 01/30/20 14:43 ONCE ONE ASSESSMENT/PLAN: 34yo F with no Mhx (taking OCP's outpatient) who presented originally for myomectomy with complication of hemorrhagic shock requiring frequent tranfusions and pressor usage in ICU stay. Patient was suspected to have DIC and was consulted for appropriate services. She was extubated on 01/28/2020 #Hemorrhagic Shock s/p POD 5 Myomectomy 2/2 leiomyomas resolved Suspected DIC (resolved) downgraded from ICU afebrile, no leukocytosis Abx per ID, may de-escalate if continues afebrile recieved total of 15 U PRBC, 9 FFP, 4 Plts, 3 Cryo, 2G TXA trend H&H GUCCI drain in place CT abdomen done, pending report Hypokalemia Hypocalcemia Hem/Onc following [employer] following Surgery following DVT proph w/ SCDs only Visit type - Emergency Visit Emergency Visit: Yes ED Registration Date: 01/25/20 Care time: The patient presented to the Emergency Department on the above date and was hospitalized for further evaluation of their emergent condition. - New Patient This patient is new to me today: Yes Date on this admission: 01/30/20 - Critical Care Critical Care patient: No - Discharge Referral Referred to [facility] Med P.C.: No
--- NOTE | 2020-01-30 20:02 | PN.HO ---
Progress Note, Physician History of Present Illness: Feels well. +Blood in GUCCI drain and reports some vaginal bleeding. - Current Medication List Current Medications: Active Medications Cefepime HCl 2 gm/ Dextrose 100 mls @ 100 mls/hr IVPB Q8H-IV CHUCK; Protocol Last Admin: 01/30/20 17:15 Dose: 100 mls/hr Documented by: Metronidazole (Flagyl 250mg Premixed Ivpb -) 250 mg in 50 mls @ 50 mls/hr IVPB Q8H-IV CHUCK Last Admin: 01/30/20 18:03 Dose: 50 mls/hr Documented by: Ondansetron HCl (Zofran Injection) 4 mg IVPUSH Q6H PRN PRN Reason: NAUSEA AND/OR VOMITING - Objective Vital Signs: Vital Signs Temperature 97.9 F 01/30/20 16:15 Pulse Rate 90 01/30/20 16:15 Respiratory Rate 20 01/30/20 16:15 Blood Pressure 134/73 01/30/20 16:15 O2 Sat by Pulse Oximetry (%) 96 01/30/20 14:00 Constitutional: Yes: No Distress Eyes: Yes: Conjunctiva Clear Respiratory: Yes: Regular Labs: CBC, BMP 01/30/20 07:59 01/30/20 07:59 INR, PTT INR 1.03 (0.83-1.09) 01/30/20 07:59 Fibrinogen > 500.0 mg/dL (238-498) H 01/29/20 17:17 Assessment/Plan 34F s/p myomectomy, with post op. hemorrhage s/p >12 units PRBCs s/p several units monodonor platelets s/p FFP, cryo s/p tranexamic acid 1g x 2 doses Extubated Hgb stable today. Coags normal.
[2020-01-31] MEDS: CEFEPIME 2 GM in DEXTROSE 5%-WATER 100 ML IVPB SCH ×2 (01:55→09:05)
[2020-01-31 08:14] LABS: BASO % 0.8 % (0-2.0); EOS % 2.2 % (0-4.5); HEMATOCRIT 29.4 % (32.4-45.2); HEMOGLOBIN 10.3 GM/dL (10.7-15.3); LYMPH % 16.5 % (8-40); MCH 31.1 pg (25.7-33.7); MEAN CELL VOLUME 88.8 fl (80-96); MEAN PLT VOLUME 8.5 fl (7.5-11.1); MONO % 6.1 % (3.8-10.2); NEUT % 74.4 % (42.8-82.8); PLATELET COUNT 202 K/MM3 (134-434); RBC 3.31 M/mm3 (3.60-5.2); RDW 14.1 % (11.6-15.6); WHITE BLOOD COUNT 7.5 K/mm3 (4.0-10.0)
[2020-01-31 08:38] LABS: BILIRUBIN,TOTAL 0.8 mg/dL (0.2-1); BLOOD UREA NITROGEN 10.2 mg/dL (7-18); CALCIUM 8.4 mg/dL (8.5-10.1); CREATININE 0.7 mg/dL (0.55-1.3); POTASSIUM 3.5 mmol/L (3.5-5.1); TOT PROT 6.5 g/dl (6.4-8.2)
[2020-01-31 08:39] LABS: INR 1.06 (0.83-1.09); PROTHROMBIN TIME (PATIENT) 12.5 SEC (9.7-13.0)
[2020-01-31] MEDS ORDERED: PT OWN MED DRAWER 7, Y5N ONE (09:03)
--- NOTE | 2020-01-31 10:51 | PN ---
Progress Note (SOAP) - Subjective Chief Complaint: Pt found sitting up in chair eating and doing well. pt with no vaginal bleeding GUCCI still draining voiding well +BM with no problems + flatus no pain Pt desires to go home - Current Medications Current Medications: Active Medications Cefepime HCl 2 gm/ Dextrose 100 mls @ 100 mls/hr IVPB Q8H-IV CHUCK; Protocol Last Admin: 01/31/20 09:05 Dose: 100 mls/hr Documented by: Metronidazole (Flagyl 250mg Premixed Ivpb -) 250 mg in 50 mls @ 50 mls/hr IVPB Q8H-IV CHUCK Last Admin: 01/31/20 10:07 Dose: 50 mls/hr Documented by: Ondansetron HCl (Zofran Injection) 4 mg IVPUSH Q6H PRN PRN Reason: NAUSEA AND/OR VOMITING - Objective Vital Signs: Vital Signs Temperature 99.3 F 01/31/20 07:53 Pulse Rate 76 01/31/20 10:00 Respiratory Rate 20 01/31/20 07:53 Blood Pressure 135/84 01/31/20 07:53 O2 Sat by Pulse Oximetry (%) 96 01/31/20 10:00 Constitutional: Yes: Well Nourished, No Distress, Calm Gastrointestinal: Yes: WNL, Soft, Other (GUCCI still draining) ....Post : Yes: Uterus non-tender Extremities: Yes: WNL Edema: No Wound/Incision: Yes: Clean/Dry, Well Approximated, Steri Strips, Open to air Neurological: Yes: WNL, Alert, Oriented Labs Lab Results: CBCD WBC 7.5 K/mm3 (4.0-10.0) 01/31/20 07:37 RBC 3.31 M/mm3 (3.60-5.2) L 01/31/20 07:37 Hgb 10.3 GM/dL (10.7-15.3) L 01/31/20 07:37 Hct 29.4 % (32.4-45.2) L 01/31/20 07:37 MCV 88.8 fl (80-96) 01/31/20 07:37 MCHC 35.0 g/dl (32.0-36.0) 01/31/20 07:37 RDW 14.1 % (11.6-15.6) 01/31/20 07:37 Plt Count 202 K/MM3 (134-434) 01/31/20 07:37 MPV 8.5 fl (7.5-11.1) 01/31/20 07:37 CMP Sodium 141 mmol/L (136-145) 01/31/20 07:37 Potassium 3.5 mmol/L (3.5-5.1) 01/31/20 07:37 Chloride 108 mmol/L (98-107) H 01/31/20 07:37 Carbon Dioxide 27 mmol/L (21-32) 01/31/20 07:37 Anion Gap 7 MMOL/L (8-16) L 01/31/20 07:37 BUN 10.2 mg/dL (7-18) 01/31/20 07:37 Creatinine 0.7 mg/dL (0.55-1.3) 01/31/20 07:37 Random Glucose 152 mg/dL (74-106) H 01/31/20 07:37 Calcium 8.4 mg/dL (8.5-10.1) L 01/31/20 07:37 Total Bilirubin 0.8 mg/dL (0.2-1) 01/31/20 07:37 AST 42 U/L (15-37) H 01/31/20 07:37 ALT 49 U/L (13-61) 01/31/20 07:37 Alkaline Phosphatase 58 U/L (45-117) 01/31/20 07:37 Total Protein 6.5 g/dl (6.4-8.2) 01/31/20 07:37 Albumin 3.0 g/dl (3.4-5.0) L 01/31/20 07:37 Problem List - Problems (1) DIC (disseminated intravascular coagulation) Problems reviewed: Yes Code(s): D65 - DISSEMINATED INTRAVASCULAR COAGULATION (2) Hemorrhagic shock Problems reviewed: Yes Code(s): R57.8 - OTHER SHOCK (3) S/P myomectomy Problems reviewed: Yes Code(s): Z98.890 - OTHER SPECIFIED POSTPROCEDURAL STATES (4) Von Willebrand disease Problems reviewed: Yes Code(s): D68.0 - VON WILLEBRAND'S DISEASE Assessment/Plan s/p myomectomy SP postop Exp Lap with oozing from everywhere no active bleeding from uterus DIC dxed possible Von willebrand disease - inc antigen in blood test SP postop hemorrhage SP DIC SP ICU admission intubated with central line/Artery line/ pressors SP 14 units prbc sp FFP 9 & Cryo 4 SP platlets 4 SP TXA SP UAE Afebrile HGB/HCT increasing Electrolytes all normal [employer] LEAD cleared Plan Able to go home today if cleared medically will fu this week regarding GUCCI drain DC home on PO abs
--- NOTE | 2020-01-31 14:32 | PN ---
Teaching Attending Note Name of Resident: Manuel Garcia ATTENDING PHYSICIAN STATEMENT I saw and evaluated the patient. I reviewed the resident's note and discussed the case with the resident. I agree with the resident's findings and plan as documented. SUBJECTIVE: OBJECTIVE: Last Vital Signs Temp Pulse Resp BP Pulse Ox 99.3 F 76 20 135/84 96 01/31/20 07:53 01/31/20 10:00 01/31/20 07:53 01/31/20 07:53 01/31/20 10:00 Gen: NAD, awkae, alert, oriented x3 HEENT: Nc/AT, JAVIER, EOMI, sclera anicteric, MMM Neck: No JVD, no central lines in place LUNG: clear, no overt wheezes or rales. CAR: Bradycardic with regular rhythm. no murmurs ABD: Soft, ND, minimal tenderness of abdomen localizing around surgical sites. GUCCI noted with serosanguinous drainage. No edema EXT: 2+ DP pulses b/l, no edema noted CBCD WBC 7.5 K/mm3 (4.0-10.0) 01/31/20 07:37 RBC 3.31 M/mm3 (3.60-5.2) L 01/31/20 07:37 Hgb 10.3 GM/dL (10.7-15.3) L 01/31/20 07:37 Hct 29.4 % (32.4-45.2) L 01/31/20 07:37 MCV 88.8 fl (80-96) 01/31/20 07:37 MCHC 35.0 g/dl (32.0-36.0) 01/31/20 07:37 RDW 14.1 % (11.6-15.6) 01/31/20 07:37 Plt Count 202 K/MM3 (134-434) 01/31/20 07:37 MPV 8.5 fl (7.5-11.1) 01/31/20 07:37 CMP Sodium 141 mmol/L (136-145) 01/31/20 07:37 Potassium 3.5 mmol/L (3.5-5.1) 01/31/20 07:37 Chloride 108 mmol/L (98-107) H 01/31/20 07:37 Carbon Dioxide 27 mmol/L (21-32) 01/31/20 07:37 Anion Gap 7 MMOL/L (8-16) L 01/31/20 07:37 BUN 10.2 mg/dL (7-18) 01/31/20 07:37 Creatinine 0.7 mg/dL (0.55-1.3) 01/31/20 07:37 Calcium 8.4 mg/dL (8.5-10.1) L 01/31/20 07:37 Total Bilirubin 0.8 mg/dL (0.2-1) 01/31/20 07:37 AST 42 U/L (15-37) H 01/31/20 07:37 ALT 49 U/L (13-61) 01/31/20 07:37 Alkaline Phosphatase 58 U/L (45-117) 01/31/20 07:37 Total Protein 6.5 g/dl (6.4-8.2) 01/31/20 07:37 Albumin 3.0 g/dl (3.4-5.0) L 01/31/20 07:37 Active Medications Cefepime HCl 2 gm/ Dextrose 100 mls @ 100 mls/hr IVPB Q8H-IV CHUCK; Protocol Last Admin: 01/31/20 09:05 Dose: 100 mls/hr Documented by: Metronidazole (Flagyl 250mg Premixed Ivpb -) 250 mg in 50 mls @ 50 mls/hr IVPB Q8H-IV CHUCK Last Admin: 01/31/20 10:07 Dose: 50 mls/hr Documented by: Ondansetron HCl (Zofran Injection) 4 mg IVPUSH Q6H PRN PRN Reason: NAUSEA AND/OR VOMITING ASSESSMENT AND PLAN: 34yo F with no Mhx (taking OCP's outpatient) who presented originally for myomectomy with complication of hemorrhagic shock requiring frequent tranfusions and pressor usage in ICU stay. Patient was suspected to have DIC and was consulted for appropriate services. 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
[2020-01-31 15:08] VITALS: BP 149/86; PULSE 75; TEMP 98.7
--- NOTE | 2020-01-31 17:06 | DS ---
"Physical Exam: SUBJECTIVE: Patient seen and examined at bedside, reports improvement of her pain and wishes to go home. OBJECTIVE: Vital Signs Period Temp Pulse Resp BP Sys/Conrad Pulse Ox Last 24 Hr 98.7 F-99.3 F 75-76 20-20 135-149/84-89 96-99 PHYSICAL EXAM GENERAL: AAOx3, in no acute distress HEENT: NCAT, PERRLA, EOMI, sclera anicteric, conjunctiva clear, oropharynx clear w/o exudates. MMM. NECK: Normal ROM, supple, no lymphadenopathy, JVD, or masses LUNGS: CTABL no wheezes/ rhonchi/ rales. No distress, speaks in full sentences. No increased work of breathing. HEART: RRR, normal S1 S2, no M/R/G, peripheral pulses 2+ and equal b/l ABDOMEN: Soft, minimal tenderness of abdomen localizing around surgical sites. GUCCI noted with serosanguinous drainage, + BS. No guarding or rebound. No hepatomegaly or splenomegaly. MSK: ROM WNL, NO CVA tenderness EXTREMITIES: Normal inspection. No peripheral edema. No clubbing or cyanosis. NEUROLOGICAL: CN II-XII intact. Normal speech, gait not observed, no focal sensorimotor deficits. PSYCH: Normal mood, normal affect. SKIN: Warm, Dry, normal turgor, no rashes or lesions noted LABS Laboratory Results - last 24 hr 01/29/20 01/30/20 01/31/20 17:17 07:59 07:37 WBC 7.5 RBC 3.31 L Hgb 10.3 L Hct 29.4 L MCV 88.8 MCH 31.1 MCHC 35.0 RDW 14.1 Plt Count 202 MPV 8.5 Absolute Neuts (auto) 5.6 Neutrophils % 74.4 Lymphocytes % 16.5 Monocytes % 6.1 Eosinophils % 2.2 D Basophils % 0.8 Nucleated RBC % 0 Haptoglobin 57 < 10 L PT with INR INR PTT (Actin FS) Sodium Potassium Chloride Carbon Dioxide Anion Gap BUN Creatinine Est GFR (CKD-EPI)AfAm Est GFR (CKD-EPI)NonAf Random Glucose Calcium Total Bilirubin AST ALT Alkaline Phosphatase Total Protein Albumin 01/31/20 01/31/20 07:37 07:37 WBC RBC Hgb Hct MCV MCH MCHC RDW Plt Count MPV Absolute Neuts (auto) Neutrophils % Lymphocytes % Monocytes % Eosinophils % Basophils % Nucleated RBC % Haptoglobin PT with INR 12.50 INR 1.06 PTT (Actin FS) 23.0 L Sodium 141 Potassium 3.5 Chloride 108 H Carbon Dioxide 27 Anion Gap 7 L BUN 10.2 Creatinine 0.7 Est GFR (CKD-EPI)AfAm 129.19 Est GFR (CKD-EPI)NonAf 111.47 Random Glucose 152 H Calcium 8.4 L Total Bilirubin 0.8 AST 42 H ALT 49 Alkaline Phosphatase 58 Total Protein 6.5 Albumin 3.0 L HOSPITAL COURSE: Date of Admission:01/25/20 34yo F with no PMH (taking OCP's outpatient) who presented originally for myomectomy with complication of hemorrhagic shock, S/P ICU admission intubated with central line/Artery line/ pressors. Pt received 14 units of RBCs, 9 FFP, 4 units of platelets, and 4 cryoprecipitate. Pt's blood pressure was managed with Levophed and Vasopressin. Hemoglobin/Hct improved and patient's BP stabilized. Hemorrahic shock and Suspected DIC, resolved. off pressors 01/26, extubated 01/27, has not needed any blood products since 01/26. Patient remained afebrile and hemodynamically stable in [place]. Treated with cefepime and flagyl for 6 days and discharged with augmentin for 3 more days. Cleared by OBGYN for outpatient follow up. Patient is clinically stable for discharge, she was prescribed augmentin for 3 more days and was given referrals/information for outpatient follow up with [employer], this week regarding GUCCI drain and for outpatient follow up with heme-onc to evaluate for possible underlying bleeding disorder. Date of Discharge: 01/31/20 Minutes to complete discharge: 36 Discharge Summary Problems reviewed: Yes Reason For Visit: FIBROIDS Condition: Good - Instructions Diet, Activity, Other Instructions: YOUR VISIT: You were admitted to the hospital for a uterine surgery. After the surgery your blood pressure, blood count and your oxygenation was found to be low. You were placed on a breathing tube in ICU and treated you with blood products to bring your blood pressure back up. You are now medically stable for discharge. MEDICATIONS: Please START taking Augmentin 500mg three times a day for 3 more days, to complete your antibiotic treatment Continue to take all other home medications as prescribed FOLLOW UPS: Please follow up with your Airport Maintenance Chief Dr. Alberto within 1 week for follow up visitation of your surgery/ hospital course and GUCCI drain removal. Please follow up with your Heme-onc Argentina Hobson for evaluation of possible bleeding disorder and to discuss the hospital course. Please visit your primary care provider within 1 weeks to follow up with your labwork and hospital visit. ADDITIONAL INSTRUCTIONS: You are being discharged to your home. Please return to the Emergency department if you are experiencing worsening or concerning symptoms. Physical activity Resume your normal everyday activity as tolerated no heavy lifting or exercise until seen by your surgeon. You may walk unlimited jose c of and climb stairs. You may resume driving the car when you feel safe and comfortable behind the wheel. No sexual activity as instructed by Dr. Dominguez. Wound care If you have a bandage, leave it on, and keep dry for 48-72 hours. After that time discard the outer bandage. If they are tapes on the skin under the out of bandage leave them in place. They will peel off in the next 7 to 10 days. Do Not Peel them off. You may shower the day after surgery. If there are tapes present on the skin, you may shower over them. Diet There are no dietary restrictions. Eat healthy, high-fiber foods. Drink 6 to 8 glasses of liquid each day. This will assist in keeping your bowels are regular. Pain management You may take Tylenol or acetaminophen or Ibuprofen (for example, Motrin, Advil etc.) from my pain prescription medication is ordered should be taken as prescribed for moderate to severe pain. Call Dr. Dominguez for any of the following: Severe pain not relieved by medication Fever of 101 or higher Excessive bleeding or drainage on dressing Inability to urinate Call the office at [phone] for an appointment in seven days. iSTOP The Drug Utilization Report below displays all of the controlled substance prescriptions, if any, that your patient has filled in the last twelve months. The information displayed on this report is compiled from pharmacy submissions to the Department, and accurately reflects the information as submitted by the pharmacies. This report was requested by: Mukund Jasso | Reference #: [id number] Referrals: Amanda Dominguez MD [Staff Physician] - 1 Week Argentina Hendrickson MD [Staff Physician] - 1 Week Disposition: HOME - Home Medications Comprehensive Discharge Medication List: Ambulatory Orders Oral Control 1 tab PO DAILY 01/21/20 Amoxicillin/Potassium Clav [Augmentin 500-125 Tablet] 1 each PO TID #9 tablet 01/31/20 This patient is new to me today: No Emergency Visit: Yes ED Registration Date: 01/25/20 Care time: The patient presented to the Emergency Department on the above date and was hospitalized for further evaluation of their emergent condition. Critical Care patient: No - Discharge Referral Referred to [facility] No ATTENDING PHYSICIAN STATEMENT I saw and evaluated the patient. I reviewed the resident's note and discussed the case with the resident. I agree with the resident's findings and plan as documented. SUBJECTIVE: OBJECTIVE: ASSESSMENT AND PLAN:"
== END 2020-01-31 15:34 | disposition home or self-care (01) | DRG 742 ==
LOC: JASUSAT 04:40 → EDSTATUS 07:30 → J2C 10:07 → JICU 17:34 → J8W 01-29 15:57
PROVIDERS: ADMIT Obstetrics & Gynecology; ATTEND Student in an Organized Health Care Education/Training Program
PROC: 0DQ80ZZ Repair Small Intestine, Open Approach (ICD-10-PCS; 2020-01-25)
PROC: 0W3P0ZZ Control Bleeding in Gastrointestinal Tract, Open Approach (ICD-10-PCS; 2020-01-25)
PROC: 0W3R0ZZ Control Bleeding in Genitourinary Tract, Open Approach (ICD-10-PCS; 2020-01-25)
PROC: 04LF3DU Occlusion of Left Uterine Artery with Intraluminal Device, Percutaneous Approach (ICD-10-PCS; 2020-01-25)
PROC: 05HM33Z Insertion of Infusion Device into Right Internal Jugular Vein, Percutaneous Approach (ICD-10-PCS; 2020-01-25)
PROC: B543ZZA Ultrasonography of Right Jugular Veins, Guidance (ICD-10-PCS; 2020-01-25)
PROC: 30233K1 Transfusion of Nonautologous Frozen Plasma into Peripheral Vein, Percutaneous Approach (ICD-10-PCS; 2020-01-25)
PROC: 30233N1 Transfusion of Nonautologous Red Blood Cells into Peripheral Vein, Percutaneous Approach (ICD-10-PCS; 2020-01-25)
PROC: 0UB90ZZ Excision of Uterus, Open Approach (ICD-10-PCS; principal; 2020-01-25 07:30)
PROC: 30233R1 Transfusion of Nonautologous Platelets into Peripheral Vein, Percutaneous Approach (ICD-10-PCS; 2020-01-26)
DX: D25.1 Intramural leiomyoma of uterus (principal); D65 Disseminated intravascular coagulation [defibrination syndrome]; T81.19XA Other postprocedural shock, initial encounter; D62 Acute posthemorrhagic anemia; N99.821 Postprocedural hemorrhage of a genitourinary system organ or structure following other procedure; D25.0 Submucous leiomyoma of uterus; D25.2 Subserosal leiomyoma of uterus; R10.2 Pelvic and perineal pain; Y83.8 Other surgical procedures as the cause of abnormal reaction of the patient, or of later complication, without mention of misadventure at the time of the procedure; N92.0 Excessive and frequent menstruation with regular cycle; R58 Hemorrhage, not elsewhere classified; R00.0 Tachycardia, unspecified; Y92.238 Other place in hospital as the place of occurrence of the external cause; Z98.890 Other specified postprocedural states; E87.6 Hypokalemia; E83.51 Hypocalcemia
CPT/HCPCS: 36415; 36430; 36511; 36600; 37244; 71045-TC-FY; 74150-TC; 80048; 80053; 82803; 83010; 83615; 83735; 83880; 84100; 84703; 85025; 85027; 85045; 85240; 85246; 85247; 85291; 85303; 85306; 85379; 85384; 85610; 85730; 86850; 86880; 86900; 86901; 86922; 87040; 88305-TC; 94002; 94010; 94760; 97116-GP; 97162-GP; C1769; C1887; C1894; J0131; P9012; P9017; P9034; P9038; P9058